=== PATIENT | male | born 1945 | race Caucasian/White ===

== ENCOUNTER 2018-06-21 13:42 | Outpatient (CLI) | payer MEDICARE, OTHER, SELFPAY ==
[2018-06-21 14:27] LABS: Abs Immature Grans 0.02 k/cumm (0.0-0.09); Absolute Basophil Count 0.02 k/cumm (0.0-0.2); Absolute Eosinophil Count 0.27 k/cumm (0.0-0.7); Absolute Lymphocyte Count 1.49 k/cumm (1.2-3.4); Absolute Monocyte Count 0.97 k/cumm (0.11-0.7); Absolute Neutrophil Count 6.21 k/cumm (1.2-6.7); Basophils % 0.2; HCT 41.2 % (40.0-50.0); HGB 13.8 g/dL (13.5-17.5); Immature Grans % 0.2; Lymphocytes % 16.6; Mean Corp. HGB Concentration 33.5 g/dL (32.0-36.0); Mean Corpuscular Hemoglobin 30.8 pg (27.0-33.0); Mean Platelet Volume 9.9 fL (8.0-11.0); Monocytes % 10.8; Neutrophils % 69.2; Platelet Count 201 x1000/uL (130-400); RBC 4.48 m/cumm (4.50-6.00); RBC Distribution Width 14.3 % (11.8-14.1); White Blood Cell Count 8.98 k/cumm (4.4-10.8)
== END 2018-06-21 14:02 ==
PROVIDERS: PCP Family Medicine; Visit Provider Family Medicine
DX: R10.9 Unspecified abdominal pain (principal)
CPT/HCPCS: 36415; 85025

== ENCOUNTER 2018-09-27 17:14 | Outpatient (CLI) | payer MEDICARE, OTHER, SELFPAY ==
--- NOTE | 2018-09-27 12:45 | DI.RAD_ITS ---
SYMPTOMS/DIAGNOSIS: PAIN, LIMITED RANGE OF MOTION, ? [facility], M25.512 LEFT SHOULDER: Multiple views. There is marked narrowing of the glenohumeral joint. Subchondral sclerosis is seen. There are osteophytes arising from the humeral head in the glenoid. Mild hypertrophic changes are seen at the acromioclavicular joint. No acute fracture or dislocation is seen. The soft tissues are unremarkable. IMPRESSION: Marked degenerative changes of the left glenohumeral joint.
== END 2018-09-27 17:34 ==
PROVIDERS: PCP Family Medicine; Visit Provider Student in an Organized Health Care Education/Training Program
DX: M25.512 Pain in left shoulder (principal); M19.012 Primary osteoarthritis, left shoulder
CPT/HCPCS: 73030

== ENCOUNTER → 2018-10-17 11:00 | Outpatient (BNVA) | payer MEDICARE, OTHER, SELFPAY | PROVIDERS: PCP Family Medicine; Referring Provider Family Medicine; Visit Provider Orthopaedic Surgery | DX: M19.012 Primary osteoarthritis, left shoulder (principal) | CPT/HCPCS: 99211; 99213 ==

== ENCOUNTER 2020-09-03 04:47 | Outpatient (CLI) | payer MEDICARE, OTHER, SELFPAY ==
[2020-09-03 09:40] LABS: ALT 25 U/L (16-63); AST 22 U/L (15-37); Albumin 3.7 g/dL (3.4-5.0); Alkaline Phosphatase 75 U/L (46-116); Anion Gap 6.5 mmol/L (3-11); BUN 28 mg/dL (7-18); Bilirubin, Total 0.8 mg/dL (0.2-1.0); CO2 31.5 mmol/L (21.0-32.0); CREATININE 1.01 mg/dL (0.70-1.30); Calculated LDL 75 mg/dL (<100); Chloride 104 mmol/L (98-107); Cholesterol 115 mg/dL (<200); Glucose 83 mg/dL (74-106); HDL Cholesterol 30 mg/dL (40-60); Potassium 4.4 mmol/L (3.5-5.1); Sodium 142 mmol/L (136-145); Total Protein 7.1 g/dL (6.4-8.2); Triglyceride 54 mg/dL (<150)
== END 2020-09-03 05:07 ==
PROVIDERS: PCP Family Medicine; Visit Provider Family Medicine
DX: Z13.220 Encounter for screening for lipoid disorders (principal); Z79.1 Long term (current) use of non-steroidal anti-inflammatories (NSAID); Z51.81 Encounter for therapeutic drug level monitoring
CPT/HCPCS: 36415; 80053; 80061

== ENCOUNTER 2020-09-23 00:58 | Outpatient (CLI) | payer MEDICARE, OTHER, SELFPAY ==
--- NOTE | 2020-09-23 06:48 | DI.US_ITS ---
EXAM: US AAA SCREENING CLINICAL HISTORY: SCREENING FOR AAA,Z13.6,H/O SMOKING, HYPERTENSION COMPARISON: US ABDOMEN ULTRASOUND (P) from 03/05/2013 FINDINGS: Abdominal Aorta: Proximal: Maximum diameter 2.8 centimeters cm Mid: Maximum diameter 2.6 centimetres cm Distal: Maximum diameter 2.3 centimeter cm Iliac's: Right: 1.8 cm Left: 1.9 cm IMPRESSION: No evidence of abdominal aortic aneurysm. However, the diameters of both common iliac arteries are sl ightly prominent. DATA REPOSITORY:
== END 2020-09-23 01:18 ==
PROVIDERS: PCP Family Medicine; Visit Provider Family Medicine
DX: Z13.6 Encounter for screening for cardiovascular disorders (principal); Z87.891 Personal history of nicotine dependence; I10 Essential (primary) hypertension
CPT/HCPCS: 76706

== ENCOUNTER 2022-04-13 23:15 | Emergency (ER) | payer MEDICARE, OTHER, SELFPAY ==
[2022-04-13 23:21] VITALS: BP 151/99; PULSE 68; RESP 26; TEMP 36.7; O2SAT 96
--- NOTE | 2022-04-13 23:30 | DI.RAD_ITS ---
Exam(s) XR PORTABLE CHEST AP EXAM: XR PORTABLE CHEST AP CLINICAL HISTORY: covid + TECHNIQUE: 2D digital imaging was performed. COMPARISON: CR CHEST 2 VIEWS PA,LAT from 03/31/2018 CR XR shoulder LT complete 2+V from 09/27/2018 FINDINGS: Leads overlie the chest. LUNGS: Hyperinflated. Emphysematous and fibrotic changes. Linear atelectasis versus scarring right lung base. No superimposed infiltrate. Stable minimal bone blunting at the costophrenic angles cons istent with scarring. HEART: Normal. Aorta tortuous. BONES: Severe degenerative changes of the shoulders. Soft tissues: Unremarkable. IMPRESSION: No acute findings. DATA REPOSITORY: RADIATION DOSE DELIVERED:
[2022-04-13 23:41] VITALS: RESP 25
[2022-04-13 23:47] LABS: Abs Immature Grans 0.02 10^3/uL (0.0-0.06); Absolute Basophil Count 0.04 10^3/uL (0.0-0.2); Absolute Eosinophil Count 0.33 10^3/uL (0.0-0.7); Absolute Lymphocyte Count 1.37 10^3/uL (1.2-3.4); Absolute Monocyte Count 0.71 10^3/uL (0.1-0.8); Absolute Neutrophil Count 3.12 10^3/uL (1.2-6.7); Basophils % 0.7; Eosinophils % 5.9; HCT 39.8 % (40.0-50.0); HGB 13.4 g/dL (13.5-17.5); Immature Grans % 0.4; Lymphocytes % 24.5; MCH 30.7 pg (27.0-33.0); MCHC 33.7 % (32.0-36.0); MCV 91 fL (80-95); MPV 9.6 fL (8.0-11.0); Monocytes % 12.7; Neutrophils % 55.8; Platelet Count 181 10^3/uL (130-400); RBC 4.36 10^6/uL (4.36-5.78); RDW 13.2 % (11.8-14.1); RDW-SD 44.6 fL; WBC 5.59 10^3/uL (4.4-10.8)
[2022-04-13] MEDS: Albuterol/Ipratropium 3 ML UPD VIAL 6 ML UPD (23:52)
[2022-04-13] MEDS: Dexamethasone 10 MG/ML VIAL IVP (23:52)
[2022-04-13 23:58] LABS: ALT 21 U/L (16-63); AST 18 U/L (15-37); Albumin 3.7 g/dL (3.4-5.0); Alkaline Phosphatase 75 U/L (46-116); Anion Gap 7.5 mmol/L (3-11); BUN 26 mg/dL (7-18); Bilirubin, Total 0.6 mg/dL (0.2-1.0); CO2 27.5 mmol/L (21.0-32.0); CREATININE 0.9 mg/dL (0.70-1.30); Calcium 9.1 mg/dL (8.5-10.1); Chloride 105 mmol/L (98-107); Glucose 94 mg/dL (74-106); Potassium 3.8 mmol/L (3.5-5.1); Sodium 140 mmol/L (136-145); Total Protein 7.5 g/dL (6.4-8.2)
--- NOTE | 2022-04-14 00:01 | W.ED.GENAD ---
Discharge Plan Disposition Patient Disposition: HOME Condition: Good Discharge Details Clinical Impression: COVID-19 Primary Care Provider: Shayne Portillo ED Provider: Carmelo Agarwal Home Meds and New Rx's Prescriptions: Continued hydrocortisone 0.25 % cream topical PRN (Reason: eczema) ppsdyeqefrd-sehatffel-hdu C-Mn 1 EACH tablet 2 ea PO DAILY Fish Oil Extra Strength 1 EACH capsule 2 ea PO DAILY cholecalciferol (vitamin D3) 2,000 UNIT tablet 2,000 unit PO DAILY garlic 1,000 MG capsule 1,000 mg PO DAILY levalbuterol tartrate [Xopenex HFA] 45 mcg/actuation HFA aerosol inhaler 2 puff Inhalation Q4H PRN Qty: 1 11RF Rx Instructions: NEEDED TO PREVENT WHEEZES/SHORTNESS OF BREATH Spiriva with HandiHaler 18 mcg capsule, w/inhalation device 1 cap Inhalation DAILY Qty: 3 3RF Rx Instructions: FOR COPD/EMPHYSEMA atorvastatin 10 mg tablet 10 mg PO DAILY Qty: 90 3RF ipratropium-albuterol 0.5 mg-3 mg(2.5 mg base)/3 mL solution for nebulization See Rx Instructions .ROUTE .COMPLEX Qty: 180 3RF Dose Instruction: INHALE THE CONTENTS OF ONE VIAL VIA NEBULIZER EVERY 6 HOURS NEEDED FOR FOR SHORTNESS OF BREATH OR WHEEZING Rx Instructions: INHALE THE CONTENTS OF ONE VIAL VIA NEBULIZER EVERY 6 HOURS NEEDED FOR FOR SHORTNESS OF BREATH OR WHEEZING etodolac 500 mg tablet 500 mg PO BID Qty: 180 3RF Rx Instructions: as needed for arthritis magnesium 500 mg Tablet PO Held tamsulosin 0.4 mg capsule 0.4 mg PO DAILY Qty: 90 3RF Hold Instructions: Resume on 04/20/22. Rx Instructions: for nocturia Discharge Instructions Instructions: COVID-19 (Coronavirus Disease 2019) (ED) Additional Instructions: You have COVID-19. You have been given a medication called Paxlovid. Please take this as directed on the packet. While you are taking the medication please do not take any of your tamsulosin/Flomax as this can interact with the medication and cause your blood pressure to go low. Please continue to take your inhalers at home. Monitor your symptoms closely. If you become more short of breath, if your oxygen levels get below 90%, or if you have any worsening of your symptoms please return immediately for reassessment. If you notice any worsening of your symptoms, or any new symptoms such as vomiting, diarrhea, fever, chills, shortness of breath, chest pain, numbness, weakness, or fainting , please return immediately to the emergency department for reevaluation. Please follow up with your primary care provider as soon as possible for reassessment and reevaluation. As always, it was a pleasure participating in your medical care today. Referrals: Shayne Portillo DO [Primary Care Provider] - Medical Decision Making This is a very pleasant 76-year-old male with a past medical history of arthritis, psoriasis, COPD, high cholesterol, BPH, who presents today for runny nose, congestion and a positive COVID test. Patient is vaccinated, boosted and was most recently boosted in February. He denies any fever or chills. He denies any fatigue. He states that about 24 hours ago he developed a mild runny nose and congestion, he had a home COVID test, and he tested positive. He presents today for evaluation of this and tach Flovent administration. He states he does use his breathing treatments regularly and feels like he can climb a mountain once he is done these. He denies any new cough, shortness of breath, chest pain, or other complaint. He denies any vomiting or diarrhea. No other modifying factors. Physical exam demonstrates a 3 well-appearing 76-year-old male, no respiratory distress, hypoxemia, or difficulty breathing. Minimal runny nose. Minimal wheeze on exam. Patient otherwise appears notably stable. No indication for inpatient admission at this time. With his mild wheeze and his history of COPD I do feel that a dose of Decadron, 10 mg in addition to 2 breathing treatments is appropriate at this time. He has appropriate breathing treatments at home otherwise. Patient is a candidate for antiviral therapy. He does take tamsulosin, but this is not an absolute contraindication. We will hold his tamsulosin moving forward. We will give him a very small fluid bolus to prevent any potential transient hypotension from his tamsulosin which he took 6 hours previous. We will administer Paxil over here. Renal function is normal, hepatic function is normal. Patient is an appropriate candidate for Paxlovid therapy at this time based on his age, risk factors, and medication list that he is provided for. Patient will be discharged home with the blister pack for paxlovid. 2:22 AM Laboratory work-up has returned and is notably unremarkable, COVID test is positive. Oxygenation remained stable, vital signs notably stable. Patient feels well and feels comfortable going home. Diagnosis COVID-19. Discussed risks and benefits of monoclonal antibody therapy versus antiviral therapy, and at this point patient has elected to proceed with antiviral therapy. He has been given his first dose of Taxotere, and will be given the posterior pack for home use. With no signs of respiratory distress, hypoxemia, or other significant abnormality patient is stable for discharge. Discussed red flags which to return. I have extensively reviewed the treatment plan and discharge instructions with the patient. I have addressed all patient concerns at this time. The patient was made aware of what symptoms to monitor for that would warrant a return to the emergency department. Discussed the plan with the patient, they demonstrate verbal understanding and agreement with our assessment and plan at this time. The documentation in this chart was dictated using [employer] dictation software. Please excuse any dictation errors. FINDINGS: Lungs: Lungs are adequately inflated and symmetric. There is coarsening of the perihilar and bibasilar interstitial markings similar to prior with unchanged thin linear opacities in the right lung base consistent with chronic subsegmental atelectasis and/or scarring. There is no focal/lobar consolidation. Pleural spaces: Unchanged blunting of left costophrenic angle favored to represent changes of atelectasis and/or scarring, could obscure trace/small left pleural effusion. No visible right pleural effusion. No pneumothorax. Heart/Mediastinum: Cardiomediastinal contours within normal limits. Vasculature: Descending thoracic aorta is tortuous in course. Bones/joints: Mild multilevel thoracic spondylosis. No acute osseous finding. IMPRESSION: No focal/lobar consolidation. Thank you for allowing us to participate in the care of your patient. Dictated and Authenticated by: Jean-Claude Doan MD [facility] General Date/Time Provider Initiated Documentation: 04/13/22 23:22. HPI Narrative: This is a very pleasant 76-year-old male with a past medical history of arthritis, psoriasis, COPD, high cholesterol, BPH, who presents today for runny nose, congestion and a positive COVID test. Patient is vaccinated, boosted and was most recently boosted in February. He denies any fever or chills. He denies any fatigue. He states that about 24 hours ago he developed a mild runny nose and congestion, he had a home COVID test, and he tested positive. He presents today for evaluation of this and tach Flovent administration. He states he does use his breathing treatments regularly and feels like he can climb a mountain once he is done these. He denies any new cough, shortness of breath, chest pain, or other complaint. He denies any vomiting or diarrhea. No other modifying factors. Related Data Home Medications Medication Instructions Recorded Confirmed cholecalciferol (vitamin D3) 50 2,000 unit PO DAILY 01/09/13 04/13/22 mcg (2,000 unit) tablet rydtihcrdmw-pazspwjep-ylu C-Mn 750 2 ea PO DAILY 01/09/13 04/13/22 mg-600 mg-55 mg-5 mg tablet omega-3 fatty acids-fish oil 435 2 ea PO DAILY 01/09/13 04/13/22 mg-880 mg capsule (Fish Oil Extra Strength) garlic 1,000 mg capsule 1,000 mg PO DAILY 12/01/14 04/13/22 hydrocortisone 0.25 % topical cream applic topical PRN eczema 02/25/21 10/07/21 levalbuterol tartrate 45 2 puff inhalation Q4H PRN ##1 07/07/21 04/13/22 mcg/actuation aerosol inhaler (Xopenex HFA) atorvastatin 10 mg tablet 10 mg PO DAILY #90 tabs 07/11/21 04/13/22 tiotropium bromide 18 mcg capsule 1 cap inhalation DAILY #3 tab-caps 07/11/21 04/13/22 with inhalation device (Spiriva with HandiHaler) ipratropium 0.5 mg-albuterol 3 mg See Rx Instructions .Route 12/15/21 04/13/22 (2.5 mg base)/3 mL nebulization .COMPLEX #180 mL soln etodolac 500 mg tablet 500 mg PO BID #180 tabs 12/29/21 04/13/22 tamsulosin 0.4 mg capsule 0.4 mg PO DAILY #90 tab-caps 03/09/22 04/13/22 magnesium 500 mg tablet mg PO 04/13/22 Previous Rx's Medication Instructions Recorded levalbuterol tartrate 45 2 puff inhalation Q4H PRN ##1 07/07/21 mcg/actuation aerosol inhaler (Xopenex HFA) atorvastatin 10 mg tablet 10 mg PO DAILY #90 tabs 07/11/21 tiotropium bromide 18 mcg capsule 1 cap inhalation DAILY #3 tab-caps 07/11/21 with inhalation device (Spiriva with HandiHaler) ipratropium 0.5 mg-albuterol 3 mg See Rx Instructions .Route 12/15/21 (2.5 mg base)/3 mL nebulization .COMPLEX #180 mL soln etodolac 500 mg tablet 500 mg PO BID #180 tabs 12/29/21 tamsulosin 0.4 mg capsule 0.4 mg PO DAILY #90 tab-caps 03/09/22 Allergies Allergy/AdvReac Type Severity Reaction Status Date / Time Latex, Natural Rubber AdvReac Intermediate Skin Rash Verified 04/13/22 23:30 walnuts Allergy Intermediate watery Uncoded 04/13/22 23:30 eyes and some swelling in mouth Fruits that have been sprayed Allergy Unknown eyes will Uncoded 04/13/22 23:30 swell if he eats them General Stated Complaint: SOB AVA: 3 Review of Systems All systems reviewed & are unremarkable except as noted in HPI and below PFSH All Active Problems (Updated 04/14/22 @ 00:13 by Carmelo Agarwal DO) COVID-19 (Acute) Bilateral shoulder region arthritis (Acute) Psoriasis and similar disorder (Acute) Compound nevus of back (Acute) Degenerative joint disease, shoulder, left (Acute) Pat I think he will eventually need a total shoulder replacement. I explained to him that this is not a procedure that I do and I would recommend Dr. Choi at [facility] if he decides to have the surgery I also explained to him that use of injections specifically Depo-Medrol can be very helpful and can last for many months. I also explained that Visco supplementation has not been effective in the shoulder. He has a characteristic area of osteophyte formation inferomedially. This often has the appearance of wax dripping from the edge of a candle. He has no joint space on the AP and axillary views. There is no narrowing between the superior portion of the humeral head and the acromion to suggest rotator cuff tear arthropathy. For now he is content to continue with his exercise he will contact the office if he wants to try injection of corticosteroid into his left shoulder perhaps his right if that becomes more symptomatic Osteopenia (Chronic 02/01/17) left hip T score (-0.9) 02/01/17; rx wt bearing exercise, adequate calcium, vit D Osteoarthritis (Chronic 06/28/15) gary both hands, 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 and T score Normal for LS spine (+2.1) Elevated prostate specific antigen (PSA) (Chronic 07/19/12) Chronic airway obstruction (Chronic 08/01/12) h/o pipe smoker; FEV1 2.28 (79%pred, 59%FVC 07/2012) incr RV, nl DLCO; d/c smoking 2011; GOLD 2 Moderate. FEV1 2.2 (2017, stable) Surgical History Prostate Biopsy (10/17/11) [address] Johnston, [facility] 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 MORROW Family History Mother , breast ca at age 43. Personal history of malignant neoplasm of Breast CA st 43 Father , suicide at age 49. Suicide depression, suicide at 49 Sister , Lung Cancer at age 73. No problems noted. Sister No problems noted. Brother , Kidney failure at age 64. No problems noted. Brother Age: 73 Diabetes Social History Smoking/Tobacco Use Status: Former Tobacco Use tobacco type: pipe Quit Date: 11/07/19 Smoking risk assessment performed?: Yes Alcohol Intake: never Drug use: Never Substance use type: does not use Household members: none Education Level: college Duration: 15-30 minutes/day Frequency: 3-4 times per week Seatbelt use: always Do you feel safe at home: Yes Do you feel safe in your relationship?: Yes Exam Narrative Exam Narrative: 1.Const: Well-nourished, Well-developed, appearing stated age 2.Eyes: PERRL, no conjunctival injection, and symmetrical lids. 3.ENT: Atraumatic external nose and ears. Moist MM. Neck: Symmetric, trachea midline, No thyromegaly. 4.CVS: +S1/S2, No murmurs or gallops. Peripheral pulses 2+ and equal in all extremities. Brisk capillary refill in all extremities. 5.RESP: Unlabored respiratory effort. Minimal wheeze throughout, no rhonchi or rales. 6.GI: Soft, Nontender/Nondistended, No hepatosplenomegaly. No guarding or rebound. 7.MSK: Normocephalic/Atraumatic, Extremities w/o deformity or ttp No cyanosis or clubbing, Normal movement of all extremities 8.Skin: Warm, Dry. No rashes or lesions. 9.Neuro: biometrics instructor II-XII grossly intact. Sensation grossly intact, no focal neurologic deficits. 10.Psych: (AAO) x3. Appropriate mood and affect Course Vital Signs Vital signs: Vital Signs Temperature 36.7 C 04/13/22 23:21 Pulse 68 04/13/22 23:21 Respiratory Rate 26 H 04/13/22 23:21 Blood Pressure 151/99 H 04/13/22 23:21 Pulse Oximetry 96 04/13/22 23:21 Temperature 36.7 C 04/13/22 23:21 Temperature Source Temporal Artery Scan 04/13/22 23:21 Pulse 68 04/13/22 23:21 Respiratory Rate 25 H 04/13/22 23:41 Respiratory Effort 04/13/22 23:41 Respiratory Depth Normal 04/13/22 23:41 Respiratory Pattern Normal 04/13/22 23:41 Blood Pressure 151/99 H 04/13/22 23:21 Blood Pressure Position Supine 04/13/22 23:21 Pulse Oximetry 96 04/13/22 23:21 Oxygen Delivery Method Room Air 04/13/22 23:21 Oxygen Flow Rate 0 04/13/22 23:21 Pain Level 0 04/13/22 23:21 Lab/Test Results Lab/Test Results: Laboratory Tests Range/Units 04/13/22 04/13/22 23:35 23:35 WBC (4.4-10.8) 10^3/uL 5.59 RBC (4.36-5.78) 10^6/uL 4.36 Hgb (13.5-17.5) g/dL 13.4 L Hct (40.0-50.0) % 39.8 L MCV (80-95) fL 91 MCH (27.0-33.0) pg 30.7 MCHC (32.0-36.0) % 33.7 RDW (11.8-14.1) % 13.2 Plt Count (130-400) 10^3/uL 181 MPV (8.0-11.0) fL 9.6 Immature Gran % 0.4 Neutrophils % 55.8 Lymphocytes % 24.5 Monocytes % 12.7 Eosinophils % 5.9 Basophils % 0.7 Nucleated RBC % (0.0-0.3) % 0.0 Absolute Neutrophils (1.2-6.7) 10^3/uL 3.12 Absolute Lymphocytes (1.2-3.4) 10^3/uL 1.37 Absolute Monocytes (0.1-0.8) 10^3/uL 0.71 Absolute Eosinophils (0.0-0.7) 10^3/uL 0.33 Absolute Basophils (0.0-0.2) 10^3/uL 0.04 Sodium (136-145) mmol/L 140 Potassium (3.5-5.1) mmol/L 3.8 Chloride (98-107) mmol/L 105 Carbon Dioxide (21.0-32.0) mmol/L 27.5 Anion Gap (3-11) mmol/L 7.5 BUN (7-18) mg/dL 26 H Creatinine (0.70-1.30) mg/dL 0.9 Estimated GFR/1.73 m2 (mL/min/1.73m2) >= 60.00 Glucose (74-106) mg/dL 94 Calcium (8.5-10.1) mg/dL 9.1 Total Bilirubin (0.2-1.0) mg/dL 0.6 AST (15-37) U/L 18 ALT (16-63) U/L 21 Alkaline Phosphatase (46-116) U/L 75 Total Protein (6.4-8.2) g/dL 7.5 Albumin (3.4-5.0) g/dL 3.7
[2022-04-14] MEDS: Normal Saline 500 ML IV (00:16)
[2022-04-14 00:30] LABS: Influenza A PCR Negative (Negative); Influenza B PCR Negative (Negative); RSV PCR Negative (Negative)
[2022-04-14 00:31] LABS: Source Nasopharynx
[2022-04-14 00:33] LABS: COVID-19 PCR Positive (Negative)
[2022-04-14 00:41] VITALS: BP 144/80; PULSE 98; RESP 23; O2SAT 94
[2022-04-14 01:39] VITALS: BP 136/90; PULSE 112; RESP 24; O2SAT 93
[2022-04-14 02:17] VITALS: BP 135/86; PULSE 107; RESP 22; O2SAT 93
--- NOTE | 2022-04-14 02:26 | DI.VRAD_ITS ---
PROCEDURE INFORMATION: Exam: XR Chest Exam date and time: 04/14/2022 12:26 AM Age: 76 years old Clinical indication: Dyspnea; Patient HX: Covid +; Additional info: SOB TECHNIQUE: Imaging protocol: Radiologic exam of the chest. Views: 1 view. COMPARISON: CR CHEST 2 VIEWS PA,LAT 03/31/2018 11:41 AM FINDINGS: Lungs: Lungs are adequately inflated and symmetric. There is coarsening of the perihilar and bibasilar interstitial markings similar to prior with unchanged thin linear opacities in the right lung base consistent with chronic subsegmental atelectasis and/or scarring. There is no focal/lobar consolidation. Pleural spaces: Unchanged blunting of left costophrenic angle favored to represent changes of atelectasis and/or scarring, could obscure trace/small left pleural effusion. No visible right pleural effusion. No pneumothorax. Heart/Mediastinum: Cardiomediastinal contours within normal limits. Vasculature: Descending thoracic aorta is tortuous in course. Bones/joints: Mild multilevel thoracic spondylosis. No acute osseous finding. IMPRESSION: No focal/lobar consolidation. Dictated and Authenticated by: Jean-Claude Doan MD. Ordering:SENIA Rhodes MD
== END 2022-04-14 02:38 | disposition home or self-care (01) ==
PROVIDERS: Emergency Provider Student in an Organized Health Care Education/Training Program; PCP Family Medicine
DX: U07.1 COVID-19 (principal); J44.9 Chronic obstructive pulmonary disease, unspecified; Z87.891 Personal history of nicotine dependence
CPT/HCPCS: 80053; 87637; 96361; 96374; 99284; 71045; 85025; J1100; J7620

== ENCOUNTER 2022-08-15 14:18 | Outpatient (CLI) | payer MEDICARE, OTHER, SELFPAY ==
--- NOTE | 2022-08-15 14:15 | DI.RAD_ITS ---
Exam(s) XR SHOULDER RT COMPLETE 2+V EXAM: XR SHOULDER RT COMPLETE 2+V CLINICAL HISTORY: right shoulder f/u. TECHNIQUE: 2D digital imaging was performed of the right shoulder. Two images were obtained. AP an d axillary views were obtained. COMPARISON: No exams were available for comparison FINDINGS: BONES: No acute fracture is present. No bony destructive lesion is seen. JOINTS: No dislocation present. There are marked degenerative changes of the glenohumeral joint with loss of the joint space, subchondral sclerosis and periarticular spurring. There are mild degenerati ve changes seen at the acromioclavicular joint. SOFT TISSUE: Normal. IMPRESSION: Marked osteoarthritis of the right glenohumeral joint. DATA REPOSITORY: RADIATION DOSE DELIVERED:
--- NOTE | 2022-08-15 14:15 | DI.RAD_ITS ---
Exam(s) XR SHOULDER LT COMPLETE 2+V EXAM: XR SHOULDER LT COMPLETE 2+V CLINICAL HISTORY: left shoulder f/u. TECHNIQUE: 2D digital imaging was performed of the left shoulder. Two images were obtained. AP and axillary views were obtained. COMPARISON: CR XR shoulder LT complete 2+V from 09/27/2018 CR,XR XR PORTABLE CHEST AP from 04/14/2022 FINDINGS: BONES: No acute fracture is present. No bony destructive lesion is seen. JOINTS: No dislocation present. There are marked degenerative changes seen at the glenohumeral joint with loss of the joint space, subchondral cysts, subchondral sclerosis and periarticular spurring. M ild hypertrophic changes are seen at the acromioclavicular joint. SOFT TISSUE: Normal. IMPRESSION: Marked osteoarthritis of the glenohumeral joint. DATA REPOSITORY: RADIATION DOSE DELIVERED:
== END 2022-08-15 14:19 | disposition home or self-care (01) ==
LOC: DIORS 14:19
PROVIDERS: PCP Family Medicine; Referring Provider Family Medicine; Visit Provider Student in an Organized Health Care Education/Training Program
DX: M19.011 Primary osteoarthritis, right shoulder (principal); M19.012 Primary osteoarthritis, left shoulder
CPT/HCPCS: 20610; 99214; 73030; J1030

== ENCOUNTER 2022-10-18 11:22 | Outpatient (CLI) | payer MEDICARE, SELFPAY | END 2022-10-18 11:23 | disposition home or self-care (01) | LOC: DIORS 10-19 11:27 | PROVIDERS: PCP Family Medicine; Referring Provider Family Medicine; Visit Provider Student in an Organized Health Care Education/Training Program | DX: M19.011 Primary osteoarthritis, right shoulder (principal) | CPT/HCPCS: 99213 ==

== ENCOUNTER 2022-10-25 01:43 | Outpatient (CLI) | payer MEDICARE, SELFPAY ==
--- NOTE | 2022-10-25 06:45 | DI.CT_ITS ---
Exam(s) CT UPPER EXTREMITY RT WO EXAM: CT UPPER EXTREMITY RT WO CLINICAL HISTORY: Surgery planning,arthritis rt glenohumeral joint,m19.011 TECHNIQUE: Imaging Protocol: Axial computed tomography images with coronal and sagittal reformatted images were created and reviewed. CONTRAST MATERIAL: None COMPARISON: CR XR SHOULDER RT COMPLETE 2+V from 08/15/2022 FINDINGS: Severe degenerative changes of the glenohumeral joint. Periarticular spurring and subchondral cyst f ormation. Joint effusion present. Few tiny calcifications in the inferior joint. Fluid in the subc oracoid bursa. No significant muscle atrophy. Mild degenerative changes AC joint Lungs show mild emphysematous and fibrotic changes. IMPRESSION: Severe degenerative changes of the glenohumeral joint. RADIATION DOSE DELIVERED: 683.04mGy.cm Total DLP DATA REPOSITORY: All CT scans at this facility are submitted to the National Radiology Data Registry (NRDR) Dose Index Registry (DIR) with the [employer] (ACR). RADIATION OPTIMIZATION: All CT scans at this facility use at least one of these dose optimization te chniques: automated exposure control; mA and/or kV adjustment per patient size (includes targeted exa ms where dose is matched to clinical indication); or iterative reconstruction.
--- NOTE | 2022-10-25 06:45 | DI.RAD_ITS ---
Exam(s) XR CHEST 2V PA LATERAL EXAM: XR CHEST 2V PA LATERAL CLINICAL HISTORY: PREOPERATIVE EVALUATION,chronic airway obstruction,arthritis rt shoulder, TECHNIQUE: 2D digital imaging was performed. COMPARISON: 14 April 2022 FINDINGS: HEART: Normal size. Aorta: Not dilated. Tortuous. PULMONARY VASCULATURE: Normal. LUNGS: Emphysematous and fibrotic changes, otherwise clear. PLEURAL SPACE: No pleural effusion or pneumothorax. BONE:Degenerative changes in the spine. IMPRESSION: Emphysematous and fibrotic changes. No acute abnormality. DATA REPOSITORY: RADIATION DOSE DELIVERED:
== END 2022-10-25 02:03 ==
PROVIDERS: PCP Family Medicine; Visit Provider Student in an Organized Health Care Education/Training Program
DX: M19.011 Primary osteoarthritis, right shoulder (principal); J44.9 Chronic obstructive pulmonary disease, unspecified; J98.4 Other disorders of lung
CPT/HCPCS: 71046; 73200

== ENCOUNTER 2022-11-17 10:21 | Outpatient (CLI) | payer MEDICARE, SELFPAY ==
--- NOTE | 2022-11-17 10:15 | RT.EKG_ITS ---
APPROVED REPORT Exam: Resting ECG Reason for Exam: Pre-op Patient Location: O HR:144 bpm ECG Measurements Heart Rate 144 AXIS VT [id number] P [id number] QRSd 153 QRS 131 QT 335 T 50 QTc 519 Conclusion Extreme tachycardia with wide complex, no further rhythm analysis attempted Probable atrial flutter IVCD
== END 2022-11-17 10:22 | disposition home or self-care (01) ==
LOC: DI.KIM 10:22
PROVIDERS: PCP Family Medicine; Visit Provider Family Medicine
DX: R00.0 Tachycardia, unspecified (principal); R06.02 Shortness of breath; R94.31 Abnormal electrocardiogram [ECG] [EKG]
CPT/HCPCS: 93010

== ENCOUNTER 2022-11-17 11:01 | Inpatient (IN) | payer MEDICARE, SELFPAY ==
[2022-11-17] VITALS (144 sets, daily range): BP systolic 96–165; BP diastolic 64–138; PULSE 48–149; RESP 10–43; TEMP 36.6–36.9; O2SAT 88–99
--- NOTE | 2022-11-17 11:00 | RT.EKG_ITS ---
APPROVED REPORT Exam: Resting ECG Reason for Exam: tachycardia Patient Location: E HR:145 bpm ECG Measurements Heart Rate 145 AXIS KS 69 P 0 QRSd 152 QRS 224 QT 341 T 50 QTc 531 Conclusion Extreme tachycardia with wide complex, no further rhythm analysis attempted Physician: RBBB w/ increased rate, no stemi, otherwise unchanged from prior ekg
--- NOTE | 2022-11-17 11:12 | DI.CT_ITS ---
Exam(s) CT CHEST PE ABD PELVIS W EXAM: CT CHEST PE ABD PELVIS W CLINICAL HISTORY: sob,[id number], total bili 1.6. TECHNIQUE: Imaging Protocol: Axial computed tomography images with coronal and sagittal reformatted images were created and reviewed CONTRAST MATERIAL: Intravenous: Omnipaque 350 Contrast volume:100 ml Oral: no COMPARISON: CR XR CHEST 2V PA LATERAL from 10/25/2022 FINDINGS: CHEST: Pulmonary arteries: Well opacified. No evidence of emboli. Pulmonary arteries prominent Tracheobronchial tree: Patent where visualized. Pulmonary parenchyma: Basilar atelectasis and/or scarring. Interstitial changes at the lung bases. Mild emphysematous changes present. No consolidation or dominant measurable mass. Pleura: No effusion or pneumothorax. Lymph nodes: Within normal limits. Aorta: Thoracic portion non-dilated. Mild atherosclerotic changes. Heart: Enlarged. Coronary artery calcifications noted. No pericardial effusion. Bones: Unremarkable for age. No lytic or blastic lesions.No compression fractures. ABDOMEN: Liver: Normal density. No measurable mass. Gallbladder and biliary tract: No radiodense calculus or dilation. Pancreas: Normal density, no abnormal calcifications or inflammatory process. Spleen: Normal. Kidneys: Normal size, contour and axis. No radiodense stones or obstructive uropathy. No suspicious m asses seen. Adrenal glands: No masses seen. Aorta: Abdominal portion non-dilated. Atherosclerotic changes. Mildly dilated dilated tortuous common iliac arteries Lymph nodes: Within normal limits. Soft tissues: Small fatty containing inguinal hernias. Small amount of fat at the umbilicus. PELVIS: Bladder: Distended., mild wall thickening. Bowel: Diverticulosis. No evidence of diverticulitis. No obstruction or bowel wall thickening. Peritoneal cavity: No ascites, collection or mesenteric inflammatory response. Bones: Severe degenerative changes in the spine. Reproductive organs: Prostate E markedly enlarged. IMPRESSION: No acute abnormality in the chest, abdomen or pelvis.. Enlarged prostate causing bladder outlet obstruction. Findings communicated with Milan Pete, emergency department provider. RADIATION DOSE DELIVERED: 1,125.21mGy.cm Total DLP DATA REPOSITORY: All CT scans at this facility are submitted to the National Radiology Data Registry (NRDR) Dose Index Registry (DIR) with the [employer] (ACR). RADIATION OPTIMIZATION: All CT scans at this facility use at least one of these dose optimization te chniques: automated exposure control; mA and/or kV adjustment per patient size (includes targeted exa ms where dose is matched to clinical indication); or iterative reconstruction.
[2022-11-17] MEDS: methylPREDNISolone SUCC 125 MG VIAL IVP (11:23)
[2022-11-17] MEDS: Levalbuterol 1.25 MG/3 ML UPD VIAL UPD (11:23)
--- NOTE | 2022-11-17 11:24 | ED.GENADUL_ITS ---
Discharge Plan Disposition Patient Disposition: Admit to [facility] Discharge Details Chief Complaint: RespSymp Clinical Impression: Tachycardia, Elevated brain natriuretic peptide (BNP) level, Shortness of breath Primary Care Provider: Shayne Portillo ED Provider: Milan Pete Home Meds and New Rx's Prescriptions: No Action [id number]-[id number] C-Mn 1 EACH tablet 2 ea PO DAILY Fish Oil Extra Strength 1 EACH capsule 2 ea PO DAILY cholecalciferol (vitamin D3) 2,000 UNIT tablet 2,000 unit PO DAILY garlic 1,000 MG capsule 1,000 mg PO DAILY tamsulosin 0.4 mg capsule 0.4 mg PO DAILY Qty: 90 3RF Hold Instructions: Resume on 04/20/22. Rx Instructions: for nocturia etodolac 500 mg tablet 500 mg PO BID Qty: 180 3RF Rx Instructions: as needed for arthritis atorvastatin 10 mg tablet 10 mg PO DAILY Qty: 90 3RF Spiriva with HandiHaler 18 mcg capsule, w/inhalation device 1 cap Inhalation DAILY Qty: 3 3RF Rx Instructions: FOR COPD/EMPHYSEMA hydrocortisone 2.5 % cream 1 applic topical BID PRN (Reason: skin irritation) Qty: 30 0RF levalbuterol tartrate [Xopenex HFA] 45 mcg/actuation HFA aerosol inhaler 2 puff Inhalation Q4H PRN Qty: 1 11RF Rx Instructions: NEEDED TO PREVENT WHEEZES/SHORTNESS OF BREATH ipratropium-albuterol 0.5 mg-3 mg(2.5 mg base)/3 mL solution for nebulization See Rx Instructions .ROUTE .COMPLEX Qty: 180 3RF Dose Instruction: INHALE THE CONTENTS OF ONE VIAL VIA NEBULIZER EVERY 6 HOURS NEEDED FOR FOR SHORTNESS OF BREATH OR WHEEZING Rx Instructions: INHALE THE CONTENTS OF ONE VIAL VIA NEBULIZER EVERY 6 HOURS NEEDED FOR FOR SHORTNESS OF BREATH OR WHEEZING magnesium 500 mg Tablet 500 mg PO DAILY Medical Decision Making 77-year-old gentleman, former smoker, history of COPD, hyperlipidemia, presented to his PCP today for a preop of a right shoulder surgery scheduled next week, was found to be short of breath, dry cough, wheezing, tachycardia, sent to the ER for further evaluation. Patient tells me that he has had a dry cough, wheezing, shortness of breath for the past 3-4 weeks. He reports chest tightness when coughing but denies any other chest pain. He denies recent illness or trauma. He denies feeling as though his heart rate is rapid. Patient presents with blood pressure of 165/105, pulse in the 140s. EKG appears to reveal sinus tachycardia. Plan to initiate a cardiac work-up, give IV labetalol, mucous membranes are slightly dry, IV fluid, and provide IV Solu- Medrol and Xopenex for his wheezing given his tachycardia IV labetalol provided. Heart rate initially decreased to the low 100s. Repeat EKG reveals what appears to be a flutter, ventricular rate of 113, right bundle branch block. Quickly returned up to the 130s and appeared to be sinus tachycardia on the monitor. Laboratory values reveal a D-dimer of 2142, total bili 1.6, BNP of 2240. Plan to obtain CTA of the chest to rule out PE but will also extend the CT to abdomen and pelvis given his consistent tachycardia and elevated total bili although no abdominal pain nausea or vomiting. Flu, RSV, COVID-negative. CT imaging unremarkable. Heart rate remains in the high 130s. Upon reevaluation lungs are less wheezy, he seems to be moving more air and subjectively reports feeling improvement, heart rate is still in the high 130s. Given his persistent tachycardia, BNP of over 2000 which appears new, will discu ss the case with our hospitalist team for admission, likely requires echocardiogram, and will discuss additional pharmacological therapy. Case discussed with Dr. Aranda who is agreeable to admit the patient. He recommends an additional 10 IV labetalol. He will write admission orders. Heart rate down into the high 110s-120s but soon after went back into the 130s. This documentation was generated using [employer] system, please disregard any oddities of phrase or misspellings. Medical Records Medical records reviewed: Yes I reviewed the patient's medical records. Imaging Data Radiologic Study: Attestation: I personally reviewed and interpreted this imaging study as follows: Imaging: CT Scan Radiologist's impression: Exam(s) CT CHEST PE ABD PELVIS W EXAM: CT CHEST PE ABD PELVIS W CLINICAL HISTORY: sob,[id number], total bili 1.6. TECHNIQUE: Imaging Protocol: Axial computed tomography images with coronal and sagittal reformatted images were created and reviewed CONTRAST MATERIAL: Intravenous: Omnipaque 350 Contrast volume:100 ml Oral: no COMPARISON: CR XR CHEST 2V PA LATERAL from 10/25/2022 FINDINGS: CHEST: Pulmonary arteries: Well opacified. No evidence of emboli. Pulmonary arteries prominent Tracheobronchial tree: Patent where visualized. Pulmonary parenchyma: Basilar atelectasis and/or scarring. Interstitial changes at the lung bases. Mild emphysematous changes present. No consolidation or dominant measurable mass. Pleura: No effusion or pneumothorax. Lymph nodes: Within normal limits. Aorta: Thoracic portion non-dilated. Mild atherosclerotic changes. Heart: Enlarged. Coronary artery calcifications noted. No pericardial effusion. Bones: Unremarkable for age. No lytic or blastic lesions.No compression fractures. ABDOMEN: Liver: Normal density. No measurable mass. Gallbladder and biliary tract: No radiodense calculus or dilation. Pancreas: Normal density, no abnormal calcifications or inflammatory process. Spleen: Normal. Kidneys: Normal size, contour and axis. No radiodense stones or obstructive uropathy. No suspicious masses seen. Adrenal glands: No masses seen. Aorta: Abdominal portion non-dilated. Atherosclerotic changes. Mildly dilated dilated tortuous common iliac arteries Lymph nodes: Within normal limits. Soft tissues: Small fatty containing inguinal hernias. Small amount of fat at the umbilicus. PELVIS: Bladder: Distended., mild wall thickening. Bowel: Diverticulosis. No evidence of diverticulitis. No obstruction or bowel wall thickening. Peritoneal cavity: No ascites, collection or mesenteric inflammatory response. Bones: Severe degenerative changes in the spine. Reproductive organs: Prostate E markedly enlarged. IMPRESSION: No acute abnormality in the chest, abdomen or pelvis.. Enlarged prostate causing bladder outlet obstruction. Findings communicated with Milan Pete, emergency department provider. Lab Data Lab results reviewed: Yes I reviewed the patient's lab results. Labs: Laboratory Tests Range/Units 11/17/22 11/17/22 11/17/22 11:15 11:15 11:15 WBC (4.4-10.8) 10^3/uL RBC (4.36-5.78) 10^6/uL Hgb (13.5-17.5) g/dL Hct (40.0-50.0) % MCV (80-95) fL MCH (27.0-33.0) pg MCHC (32.0-36.0) % RDW (11.8-14.1) % Plt Count (130-400) 10^3/uL MPV (8.0-11.0) fL Immature Gran % Neutrophils % Lymphocytes % Monocytes % Eosinophils % Basophils % Nucleated RBC % (0.0-0.3) % Absolute Neutrophils (1.2-6.7) 10^3/uL Absolute Lymphocytes (1.2-3.4) 10^3/uL Absolute Monocytes (0.1-0.8) 10^3/uL Absolute Eosinophils (0.0-0.7) 10^3/uL Absolute Basophils (0.0-0.2) 10^3/uL PT (9.3-11.0) sec 11.4 H INR (0.9-1.1) 1.1 APTT (21.5-31.9) sec 28.6 D-Dimer (<500) ng/mlFEU 2142 H Sodium (136-145) mmol/L 139 Potassium (3.5-5.1) mmol/L 4.4 Chloride (98-107) mmol/L 104 Carbon Dioxide (21.0-32.0) mmol/L 28.7 Anion Gap (3-11) mmol/L 6.3 BUN (7-18) mg/dL 25 H Creatinine (0.70-1.30) mg/dL 0.9 Est GFR (CKD-EPI 2020) (mL/min/1.73m2) 87.96 Glucose (74-106) mg/dL 123 H Calcium (8.5-10.1) mg/dL 9.2 Magnesium (1.8-2.4) mg/dL 2.2 Total Bilirubin (0.2-1.0) mg/dL 1.6 H AST (15-37) U/L 21 ALT (16-63) U/L 34 Alkaline Phosphatase (46-116) U/L 74 Troponin I (<or=60) ng/L < 50 NT-Pro-B Natriuret Pep Cancelled 2240 H Total Protein (6.4-8.2) g/dL 7.3 Albumin (3.4-5.0) g/dL 3.9 TSH Cancelled 1.68 COVID-19 Source SARS-CoV-2 (PCR) (Negative) Influenza Type A (PCR) (Negative) Influenza Type B (PCR) (Negative) RSV (PCR) (Negative) Range/Units 11/17/22 11/17/22 11:15 11:20 WBC (4.4-10.8) 10^3/uL 8.06 RBC (4.36-5.78) 10^6/uL 4.41 Hgb (13.5-17.5) g/dL 13.3 L Hct (40.0-50.0) % 40.9 MCV (80-95) fL 93 MCH (27.0-33.0) pg 30.2 MCHC (32.0-36.0) % 32.5 RDW (11.8-14.1) % 14.0 Plt Count (130-400) 10^3/uL 187 MPV (8.0-11.0) fL 9.5 Immature Gran % 0.2 Neutrophils % 75.8 Lymphocytes % 11.7 Monocytes % 10.7 Eosinophils % 1.2 Basophils % 0.4 Nucleated RBC % (0.0-0.3) % 0.0 Absolute Neutrophils (1.2-6.7) 10^3/uL 6.11 Absolute Lymphocytes (1.2-3.4) 10^3/uL 0.94 L Absolute Monocytes (0.1-0.8) 10^3/uL 0.86 H Absolute Eosinophils (0.0-0.7) 10^3/uL 0.10 Absolute Basophils (0.0-0.2) 10^3/uL 0.03 PT (9.3-11.0) sec INR (0.9-1.1) APTT (21.5-31.9) sec D-Dimer (<500) ng/mlFEU Sodium (136-145) mmol/L Potassium (3.5-5.1) mmol/L Chloride (98-107) mmol/L Carbon Dioxide (21.0-32.0) mmol/L Anion Gap (3-11) mmol/L BUN (7-18) mg/dL Creatinine (0.70-1.30) mg/dL Est GFR (CKD-EPI 2020) (mL/min/1.73m2) Glucose (74-106) mg/dL Calcium (8.5-10.1) mg/dL Magnesium (1.8-2.4) mg/dL Total Bilirubin (0.2-1.0) mg/dL AST (15-37) U/L ALT (16-63) U/L Alkaline Phosphatase (46-116) U/L Troponin I (<or=60) ng/L NT-Pro-B Natriuret Pep Total Protein (6.4-8.2) g/dL Albumin (3.4-5.0) g/dL TSH COVID-19 Source Nasopharynx SARS-CoV-2 (PCR) (Negative) Negative Influenza Type A (PCR) (Negative) Negative Influenza Type B (PCR) (Negative) Negative RSV (PCR) (Negative) Negative ECG Data Attestation: I personally reviewed and interpreted this ECG (s) as follows: Interpretation: Sinus tachycardia, ventricular rate of 145, right bundle branch block. No STEMI HPI General Mode of arrival: ambulatory . Date/Time Provider Initiated Documentation: 11/17/22 11:04 . Limitations to Documentation: no limitations . Information obtained by: patient . HPI Narrative: This is a 77-year-old male, former smoker, past medical history of COPD, presented to his PCP today for a preop of a right shoulder surgery, found to be wheezy, tachycardic, and coughing, patient reports this has been going on for 3- 4 weeks. Patient denies fever, headache, neck pain, chest pain, productive cough, abdominal pain, nausea, vomiting, back pain, pain or swelling in his legs. Patient reports that he feels as though there is phlegm that he simply cannot get out of his chest. He reports chest tightness specifically when coughing. He has been using his at home inhaler and neb machine as directed but not more than directed. Related Data Home Medications Medication Instructions Recorded Confirmed cholecalciferol (vitamin D3) 50 2,000 unit PO DAILY 01/09/13 11/17/22 mcg (2,000 unit) tablet [id number]-[id number]-[id number] C-Mn 750 2 ea PO DAILY 01/09/13 11/17/22 mg-600 mg-55 mg-5 mg tablet omega-3 fatty acids-fish oil 435 2 ea PO DAILY 01/09/13 11/17/22 mg-880 mg capsule (Fish Oil Extra Strength) garlic 1,000 mg capsule 1,000 mg PO DAILY 12/01/14 11/17/22 tamsulosin 0.4 mg capsule 0.4 mg PO DAILY #90 tab-caps 03/09/22 11/17/22 magnesium 500 mg tablet 500 mg PO DAILY 04/13/22 11/17/22 atorvastatin 10 mg tablet 10 mg PO DAILY #90 tabs 06/22/22 11/17/22 etodolac 500 mg tablet 500 mg PO BID #180 tabs 06/22/22 11/17/22 tiotropium bromide 18 mcg capsule 1 cap inhalation DAILY #3 tab-caps 06/22/22 11/17/22 with inhalation device (Spiriva with HandiHaler) hydrocortisone 2.5 % topical cream 1 applic topical BID PRN skin 08/01/22 11/17/22 irritation #30 grams levalbuterol tartrate 45 2 puff inhalation Q4H PRN ##1 08/01/22 11/17/22 mcg/actuation aerosol inhaler (Xopenex HFA) ipratropium 0.5 mg-albuterol 3 mg See Rx Instructions .Route 08/22/22 11/17/22 (2.5 mg base)/3 mL nebulization .COMPLEX #180 mL soln Previous Rx's Medication Instructions Recorded tamsulosin 0.4 mg capsule 0.4 mg PO DAILY #90 tab-caps 03/09/22 atorvastatin 10 mg tablet 10 mg PO DAILY #90 tabs 06/22/22 etodolac 500 mg tablet 500 mg PO BID #180 tabs 06/22/22 tiotropium bromide 18 mcg capsule 1 cap inhalation DAILY #3 tab-caps 06/22/22 with inhalation device (Spiriva with HandiHaler) hydrocortisone 2.5 % topical cream 1 applic topical BID PRN skin 08/01/22 irritation #30 grams levalbuterol tartrate 45 2 puff inhalation Q4H PRN ##1 08/01/22 mcg/actuation aerosol inhaler (Xopenex HFA) ipratropium 0.5 mg-albuterol 3 mg See Rx Instructions .Route 08/22/22 (2.5 mg base)/3 mL nebulization .COMPLEX #180 mL soln Allergies Allergy/AdvReac Type Severity Reaction Status Date / Time Latex, Natural Rubber AdvReac Intermediate Skin Rash Verified 11/17/22 10:14 walnuts Allergy Intermediate watery Uncoded 11/17/22 10:14 eyes and some swelling in mouth Fruits that have been sprayed Allergy Unknown eyes will Uncoded 11/17/22 10:14 swell if he eats them General Stated Complaint: RespSymp AVA: 2 Review of Systems Constitutional Constitutional: Denies fatigue, Denies fever(s), Denies headache(s) and Denies weakness ENT Ears, Nose, Mouth, and Throat: Denies headache(s) and Denies neck pain Cardiovascular Cardiovascular: Denies chest pain and Reports dyspnea Respiratory Respiratory: Reports cough, Reports dyspnea and Reports wheezing Gastrointestinal Gastrointestinal: Denies abdominal pain, Denies nausea and Denies vomiting Musculoskeletal Musculoskeletal: Denies back pain, Denies neck pain, Denies numbness and Denies tingling Integumentary/Breasts Skin/Breast: Denies rash Neurologic Neurologic: Denies headache(s), Denies numbness, Denies tingling and Denies weakness Endocrine Endocrine: Denies fatigue Hematologic/Lymphatic Hematologic/Lymphatic: Denies easy bleeding and Denies easy bruising Allergic/Immunologic Allergic/Immunologic: Reports wheezing PFSH All Active Problems (Updated 11/17/22 @ 14:34 by ASHLEY Tapia) Tachycardia (Acute) Elevated brain natriuretic peptide (BNP) level (Acute) Shortness of breath (Acute) Arthritis of right shoulder region (Acute) Family history of non-Hodgkin's lymphoma (Acute) Sister, mantle cell Impacted cerumen of both ears (Acute) Bilateral sensorineural hearing loss (Acute) Bilateral shoulder region arthritis (Acute) Psoriasis and similar disorder (Acute) Compound nevus of back (Acute) Osteopenia (Chronic 02/01/17) left hip T score (-0.9) 02/01/17; rx wt bearing exercise, adequate calcium, vit D Osteoarthritis (Chronic 06/28/15) gary both hands, 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 and T score Normal for LS spine (+2.1) Elevated prostate specific antigen (PSA) (Chronic 07/19/12) Chronic airway obstruction (Chronic 08/01/12) h/o pipe smoker; FEV1 2.28 (79%pred, 59%FVC 07/2012) incr RV, nl DLCO; d/c smoking 2011; GOLD 2 Moderate. FEV1 2.2 (2017, stable) Medical History Degenerative joint disease, shoulder, left Pat I think he will eventually need a total shoulder replacement. I explained to him that this is not a procedure that I do and I would recommend Dr. Choi at [facility] if he decides to have the surgery I also explained to him that use of injections specifically Depo-Medrol can be very helpful and can last for many months. I also explained that Visco supplementation has not been effective in the shoulder. He has a characteristic area of osteophyte formation inferomedially. This often has the appearance of wax dripping from the edge of a candle. He has no joint space on the AP and axillary views. There is no narrowing between the superior portion of the humeral head and the acromion to suggest rotator cuff tear arthropathy. For now he is content to continue with his exercise he will contact the office if he wants to try injection of corticosteroid into his left shoulder perhaps his right if that becomes more symptomatic Surgical History Prostate Biopsy (10/17/11) 6 bx neg ROHIT Moreno 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 MORROW Family History Mother , breast ca at age 43. Personal history of malignant neoplasm of Breast CA [address] 43 Father , suicide at age 49. Suicide depression, suicide at 49 Sister Cancer Indy Royal Mantle Cell Non-Hodgkin Lymphoma, diagnosed 2020, in remission Lung cancer Brother Age: 74 Diabetes Social History Smoking/Tobacco Use Status: Former Tobacco Use tobacco type: pipe Quit Date: 11/07/19 Smoking risk assessment performed?: Yes Alcohol Intake: never Drug use: Never Substance use type: does not use Household members: none Education Level: college Current gender identity: male Duration: 15-30 minutes/day Frequency: 3-4 times per week Seatbelt use: always Do you feel safe at home: Yes Do you feel safe in your relationship?: Yes Exam Const General: cooperative, healthy appearing, comfortable and no acute distress Orientation: alert and awake [facility] Head: normal to inspection, normocephalic and atraumatic Mouth: moist mucous membranes abnormal (Slightly dry) Eyes General: appearance normal, both eyes and all related structures Conjunctivae: conjunctivae normal Neck Neck: normal visual inspection, full ROM, no meningeal signs, trachea midline and supple Chest Chest: normal inspection of the chest and normal palpation of entire chest wall Resp Effort & Inspection: able to speak in complete sentences and tachypneic Auscultation: wheezes (Throughout) Cardio Rate: tachycardic (140s) Rhythm: regular rhythm GI Inspection: normal to inspection Palpation: soft, not firm, no guarding, no pulsatile masses and nontender Auscultation: normal bowel sounds Back/Spine/Pelvis Back: no CVA tenderness and No back tenderness Skin General skin exam: no rashes or lesions noted Neuro General: patient alert, patient awake, moves all extremities and no focal motor deficits Cognition: normal cognition Speech: speech normal Gait: normal gait Sensory Exam: no sensory deficits noted Extrem General: normal to inspection, full ROM, capillary refill normal, no pedal edema and no calf tenderness Psych Appearance: grossly normal Mental Status: mental status grossly normal Course Vital Signs Vital signs: Vital Signs Temperature 36.6 C 11/17/22 11:08 Pulse 145 H 11/17/22 11:08 Respiratory Rate 36 H 11/17/22 11:08 Blood Pressure 165/105 H 11/17/22 11:08 Pulse Oximetry 97 11/17/22 11:08 Temperature 36.6 C 11/17/22 11:08 Temperature Source Oral 11/17/22 11:08 Pulse 145 H 11/17/22 11:08 Respiratory Rate 36 H 11/17/22 11:08 Respiratory Effort Short of Breath, Labored 11/17/22 11:06 Blood Pressure 165/105 H 11/17/22 11:08 Pulse Oximetry 97 11/17/22 11:08 Oxygen Delivery Method Room Air 11/17/22 11:08 Oxygen Flow Rate 0 11/17/22 11:08 Critical Care Time Critical Care Time Critical Care Time: Yes Total Critical Care Time: 35 Attestation: Upon my evaluation, this patient had a high probability of clinically significant, life-threatening deterioration due to their current medical conditions, which required my direct attention, intervention, and personal management. I have personally provided greater than 30 minutes of critical care time exclusive of the time spend on separately billable procedures. Time includes obtaining a history, examining the patient, pulse oximetry, review of laboratory data, radiology results, discussion with consultants, arranging urgent treatment with development of a management plan, evaluation of patient's response to treatment, and monitoring for potential decompensation. Interventions were performed as documented above.
[2022-11-17 11:28] LABS: Abs Immature Grans 0.02 10^3/uL (0.0-0.06); Absolute Basophil Count 0.03 10^3/uL (0.0-0.2); Absolute Lymphocyte Count 0.94 10^3/uL (1.2-3.4); Absolute Monocyte Count 0.86 10^3/uL (0.1-0.8); Absolute Neutrophil Count 6.11 10^3/uL (1.2-6.7); Basophils % 0.4; Eosinophils % 1.2; HCT 40.9 % (40.0-50.0); HGB 13.3 g/dL (13.5-17.5); Immature Grans % 0.2; Lymphocytes % 11.7; MCH 30.2 pg (27.0-33.0); MCHC 32.5 % (32.0-36.0); MCV 93 fL (80-95); MPV 9.5 fL (8.0-11.0); Monocytes % 10.7; Neutrophils % 75.8; Platelet Count 187 10^3/uL (130-400); RBC 4.41 10^6/uL (4.36-5.78); WBC 8.06 10^3/uL (4.4-10.8)
[2022-11-17 11:47] LABS: INR 1.1 (0.9-1.1); PTT Activated 28.6 sec (21.5-31.9); Prothrombin Time 11.4 sec (9.3-11.0)
[2022-11-17 11:53] LABS: ALT 34 U/L (16-63); AST 21 U/L (15-37); Albumin 3.9 g/dL (3.4-5.0); Alkaline Phosphatase 74 U/L (46-116); Anion Gap 6.3 mmol/L (3-11); BUN 25 mg/dL (7-18); Bilirubin, Total 1.6 mg/dL (0.2-1.0); CO2 28.7 mmol/L (21.0-32.0); CREATININE 0.9 mg/dL (0.70-1.30); Calcium 9.2 mg/dL (8.5-10.1); Chloride 104 mmol/L (98-107); Estimated GFR 87.96 (mL/min/1.73m2); Glucose 123 mg/dL (74-106); Magnesium 2.2 mg/dL (1.8-2.4); NT-proBNP 2240 pg/mL (<300); Potassium 4.4 mmol/L (3.5-5.1); Sodium 139 mmol/L (136-145); TSH (W/Ref FT4) 1.68 uIU/mL (0.36-3.74); Total Protein 7.3 g/dL (6.4-8.2); Troponin I < 50 ng/L (<or=60)
[2022-11-17] MEDS: Labetalol 100 MG/20 ML VIAL 10 MG IVP ×2 (11:57→13:44)
[2022-11-17 12:00] LABS: D-Dimer 2142 ng/mlFEU (<500)
[2022-11-17] MEDS: Normal Saline 1,000 ML 1000 ML IV (12:00)
--- NOTE | 2022-11-17 12:00 | RT.EKG_ITS ---
APPROVED REPORT Exam: Resting ECG Reason for Exam: tachycardia Patient Location: E HR:113 bpm ECG Measurements Heart Rate 113 AXIS AL [id number] P [id number] QRSd 162 QRS 161 QT 355 T 70 QTc 487 Conclusion Atrial flutter...A-rate 277 Right bundle branch block...QRSd>120, terminal axis(90,270) I have reviewed and interpreted ECG and agree with software generated interpretation.
[2022-11-17 12:03] LABS: COVID-19 PCR Negative (Negative); Influenza A PCR Negative (Negative); Influenza B PCR Negative (Negative); RSV PCR Negative (Negative)
[2022-11-17 12:15] LABS: Source Nasopharynx
[2022-11-17] MEDS: Omnipaque 350 MG/ML 500 ML BTL-Imaging package IJ (12:44)
[2022-11-17] MEDS: Normal Saline - Diluent 50 ML VIAL IJ (12:45)
[2022-11-17 15:15] LABS: Troponin I < 50 ng/L (<or=60)
[2022-11-17] MEDS: dilTIAZem 25 MG/5 ML VIAL 10 MG IVP (17:00)
[2022-11-17] MEDS: Furosemide 40 MG/4 ML VIAL IVP (17:01)
[2022-11-17] MEDS: Enoxaparin 40 MG/0.4 ML SYR SC ×2 (17:56→18:45)
[2022-11-17] MEDS: dilTIAZem 25 MG/5 ML VIAL 15 MG IVP (17:56)
--- NOTE | 2022-11-17 18:01 | HPE_ITS ---
Date of service: 11/17/22 Time of Service: 18:01 Assessment and Plan Assessment and plan (1) Congestive heart failure: Status: Chronic Assessment and plan: Elevated BNP No known h/o CAD or failure. Likely related to aflutter with RVR. No prior echocardiograms in chart. Echocardiogram report pending. Lasix 40mg IV given; will observe response and then decide on further dosing. Goal directed therapies with Entresto vs ARB or ANDREA and Jardiance. (2) Atrial flutter: Status: Acute Assessment and plan: No known prior history. Response to 2 IV pushes of labetolol in ED was inadequate. Improved ventricular rate with IV pushes of Diltiazem, however he did have break-through return to a rapid ventricular response. Diltiazem drip initiated. Since [id number] score > 2, recommendation is long-term AC. Would coordinate this with his scheduled shoulder surgery when that is arranged. Likely change to a DOAC. (3) Arthritis of right shoulder region: Status: Acute Assessment and plan: Planned surgical intervention with Dr Bautista in early November. He has a f/u with Dr Bautista before the surgery. Likely will need to delay surgery. History of Present Illness History of Present Illness Chief Complaint: tachycardia and cough Narrative: This is a 77 yo male with a PMH of COPD, osteoarthritis, psoriasis. He initially presented to his PCP office on day of admission for preop evaluation in preparation for a right shoulder surgery. There, he was noted to be wheezy, tachycardic. He also had a cough that he has noted for 3-4 weeks. No fever, sputum though he feels there is phlegm he is unable to expectorate. No CP other than tightness with cough. No palpitaions. No pedal edema. In the ED his presenting BP was 165/105. Pulse in the 140's. EKG appeared to be flutter. RBBB. Lab showed a D-dimer of 2142. BNP of 2240. Fluvid negative. CT chest/abd/pelvis: no acute findings. Prostate noted to be enlarged with bladder outlet obstruction. 2 doses of IV labatelol administered with only temporary mild improvement in HR. Admitting to ICU Review of Systems All systems reviewed & are unremarkable except as noted in HPI and below PFSH All Active Problems (Updated 11/17/22 @ 18:15 by Nathan Aranda MD) Atrial flutter (Acute) Congestive heart failure (Chronic) Tachycardia (Acute) Elevated brain natriuretic peptide (BNP) level (Acute) Shortness of breath (Acute) Arthritis of right shoulder region (Acute) Family history of non-Hodgkin's lymphoma (Acute) Sister, mantle cell Impacted cerumen of both ears (Acute) Bilateral sensorineural hearing loss (Acute) Bilateral shoulder region arthritis (Acute) Psoriasis and similar disorder (Acute) Compound nevus of back (Acute) Osteopenia (Chronic 02/01/17) left hip T score (-0.9) 02/01/17; rx wt bearing exercise, adequate calcium, vit D Osteoarthritis (Chronic 06/28/15) gary both hands, 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 and T sco re Normal for LS spine (+2.1) Elevated prostate specific antigen (PSA) (Chronic 07/19/12) Chronic airway obstruction (Chronic 08/01/12) h/o pipe smoker; FEV1 2.28 (79%pred, 59%FVC 07/2012) incr RV, nl DLCO; d/c smoking 2011; GOLD 2 Moderate. FEV1 2.2 (2017, stable) Medical History Degenerative joint disease, shoulder, left Pat I think he will eventually need a total shoulder replacement. I ex plained to him that this is not a procedure that I do and I would recommend Dr. Choi at [facility] if he decides to have the surgery I also explained to him that use of injections specifically Depo-Medrol can be very helpful and can last for many months. I also explained that Visco supplementation has not been effective in the shoulder. He has a characteristic area of osteophyte formation inferomedially. This often has the appearance of wax dripping from the edge of a candle. He has no joint space on the AP and axillary views. There is no narrowing between the superior portion of the humeral head and the acromion to suggest rotator cuff tear arthropathy. For now he is content to continue with his exercise he will contact the office if he wants to try injection of corticosteroid into his left shoulder perhaps his right if that becomes more symptomatic Surgical History Prostate Biopsy (10/17/11) [address] Johnston, [facility] 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 MORROW Family History Mother , breast ca at age 43. Personal history of malignant neoplasm of Breast CA st 43 Father , suicide at age 49. Suicide depression, suicide at 49 Sister Cancer [place] Mantle Cell Non-Hodgkin Lymphoma, diagnosed 2020, in remission Lung cancer Brother Age: 74 Diabetes Social History Smoking/Tobacco Use Status: Former Tobacco Use tobacco type: pipe Quit Date: 11/07/19 Smoking risk assessment performed?: Yes Alcohol Intake: never Drug use: Never Substance use type: does not use Household members: none Education Level: college Current gender identity: male Duration: 15-30 minutes/day Frequency: 3-4 times per week Seatbelt use: always Do you feel safe at home: Yes Do you feel safe in your relationship?: Yes Meds Allergies and Home Medications Allergies Allergy/AdvReac Type Severity Reaction Status Date / Time Latex, Natural Rubber AdvReac Intermediate Skin Rash Verified 11/17/22 10:14 walnuts Allergy Intermediate watery Uncoded 11/17/22 10:14 eyes and some swelling in mouth Fruits that have been sprayed Allergy Unknown eyes will Uncoded 11/17/22 10:14 swell if he eats them Home Medications Medication Instructions Recorded Confirmed Type cholecalciferol (vitamin D3) 50 2,000 unit PO DAILY 01/09/13 11/17/22 History mcg (2,000 unit) tablet [id number] C-Mn 750 2 ea PO DAILY 01/09/13 11/17/22 History mg-600 mg-55 mg-5 mg tablet omega-3 fatty acids-fish oil 435 2 ea PO DAILY 01/09/13 11/17/22 History mg-880 mg capsule (Fish Oil Extra Strength) garlic 1,000 mg capsule 1,000 mg PO DAILY 12/01/14 11/17/22 History tamsulosin 0.4 mg capsule 0.4 mg PO DAILY #90 tab-caps 03/09/22 11/17/22 Rx magnesium 500 mg tablet 500 mg PO DAILY 04/13/22 11/17/22 History atorvastatin 10 mg tablet 10 mg PO DAILY #90 tabs 06/22/22 11/17/22 Rx etodolac 500 mg tablet 500 mg PO BID #180 tabs 06/22/22 11/17/22 Rx tiotropium bromide 18 mcg capsule 1 cap inhalation DAILY #3 tab-caps 06/22/22 11/17/22 Rx with inhalation device (Spiriva with HandiHaler) hydrocortisone 2.5 % topical cream 1 applic topical BID PRN skin 08/01/22 11/17/22 Rx irritation #30 grams levalbuterol tartrate 45 2 puff inhalation Q4H PRN ##1 08/01/22 11/17/22 Rx mcg/actuation aerosol inhaler (Xopenex HFA) ipratropium 0.5 mg-albuterol 3 mg See Rx Instructions .Route 08/22/22 11/17/22 Rx (2.5 mg base)/3 mL nebulization .COMPLEX #180 mL soln Exam Narrative Exam Narrative: Pleasant 77 yo male in NAD. Conversant. Const General: cooperative and no acute distress Nutritional Appearance: average body habitus Orientation: alert and oriented x3 Eyes General: appearance normal, both eyes and all related structures Conjunctivae: conjunctivae normal Neck Neck: normal visual inspection, full ROM and no JVD Resp Effort & Inspection: normal respiratory effort Auscultation: rales bilaterally in the lower lung stone Cardio Rate: tachycardic Rhythm: regular rhythm GI Inspection: other (protuberant) Palpation: soft and nontender Skin General skin exam: no rashes or lesions noted Neuro General: no focal motor deficits Cranial Nerves: facial strength normal Cognition: normal cognition Speech: other (Intermittently stutters) Extrem General: no calf tenderness and edema Laterality: bilateral (1+) Psych Appearance: grossly normal Mental Status: mental status grossly normal Affect: normal affect Results Labs 11/17/22 11:15 11/17/22 11:15 Labs: Laboratory Results - last 24 hr 11/17/22 11/17/2223 11:15 11:15 11:15 WBC RBC Hgb Hct MCV MCH MCHC RDW Plt Count MPV Immature Gran % Neutrophils % Lymphocytes % Monocytes % Eosinophils % Basophils % Nucleated RBC % Absolute Neutrophils Absolute Lymphocytes Absolute Monocytes Absolute Eosinophils Absolute Basophils PT 11.4 H INR 1.1 APTT 28.6 D-Dimer 2142 H Sodium 139 Potassium 4.4 Chloride 104 Carbon Dioxide 28.7 Anion Gap 6.3 BUN 25 H Creatinine 0.9 Est GFR (CKD-EPI 2020) 87.96 Glucose 123 H Calcium 9.2 Magnesium 2.2 Total Bilirubin 1.6 H AST 21 ALT 34 Alkaline Phosphatase 74 Troponin I < 50 NT-Pro-B Natriuret Pep Cancelled 2240 H Total Protein 7.3 Albumin 3.9 TSH Cancelled 1.68 COVID-19 Source SARS-CoV-2 (PCR) Influenza Type A (PCR) Influenza Type B (PCR) RSV (PCR) 11/17/22 11/17/22 11/17/22 11:15 11:20 14:45 WBC 8.06 RBC 4.41 Hgb 13.3 L Hct 40.9 MCV 93 MCH 30.2 MCHC 32.5 RDW 14.0 Plt Count 187 MPV 9.5 Immature Gran % 0.2 Neutrophils % 75.8 Lymphocytes % 11.7 Monocytes % 10.7 Eosinophils % 1.2 Basophils % 0.4 Nucleated RBC % 0.0 Absolute Neutrophils 6.11 Absolute Lymphocytes 0.94 L Absolute Monocytes 0.86 H Absolute Eosinophils 0.10 Absolute Basophils 0.03 PT INR APTT D-Dimer Sodium Potassium Chloride Carbon Dioxide Anion Gap BUN Creatinine Est GFR (CKD-EPI 2020) Glucose Calcium Magnesium Total Bilirubin AST ALT Alkaline Phosphatase Troponin I < 50 NT-Pro-B Natriuret Pep Total Protein Albumin TSH COVID-19 Source Nasopharynx SARS-CoV-2 (PCR) Negative Influenza Type A (PCR) Negative Influenza Type B (PCR) Negative RSV (PCR) Negative Last Vital Signs Temp 36.6 C 11/17/22 16:45 Pulse 133 H 11/17/22 17:00 Resp 27 H 11/17/22 15:29 BP 132/97 H 11/17/22 17:00 Pulse Ox 94 11/17/22 15:29 Time Spent Time spent with Patient: 40-54 minutes Time was spent: preparing to see the patient(eg.review tests), obtaining and/or reviewing separately otained hiistory, ordering medications,tests, procedures, indepentently interpreting results and counseling the patient
[2022-11-17] MEDS: Budesonide/Formoterol 80/4.5 6.9 GM 60 PUFF INH IH (20:50)
[2022-11-17] MEDS: Tamsulosin 0.4 MG CAPCR PO (20:50)
[2022-11-17] MEDS: dilTIAZem 30 MG TAB PO (20:50)
[2022-11-17] MEDS: dilTIAZem 125 MG in Normal Saline 100 ML IV (23:25)
[2022-11-18] VITALS (81 sets, daily range): BP systolic 97–151; BP diastolic 53–104; PULSE 46–172; RESP 11–38; TEMP 36.4–37.1; O2SAT 90–94
[2022-11-18] MEDS: Lidocaine 2% Jelly 6 ML SYR (02:30)
[2022-11-18] MEDS: Normal Saline Flush 10 ML SYR IVP ×4 (05:20→23:48)
[2022-11-18 06:03] LABS: ALT 37 U/L (16-63); AST 20 U/L (15-37); Albumin 3.3 g/dL (3.4-5.0); Alkaline Phosphatase 62 U/L (46-116); Anion Gap -0.1 mmol/L (3-11); BUN 33 mg/dL (7-18); Bilirubin, Total 0.9 mg/dL (0.2-1.0); CO2 26.1 mmol/L (21.0-32.0); CREATININE 0.9 mg/dL (0.70-1.30); Calcium 8.9 mg/dL (8.5-10.1); Chloride 105 mmol/L (98-107); Estimated GFR 87.96 (mL/min/1.73m2); Glucose 145 mg/dL (74-106); Potassium 3.2 mmol/L (3.5-5.1); Sodium 131 mmol/L (136-145); Total Protein 6.7 g/dL (6.4-8.2)
[2022-11-18 06:39] LABS: Troponin I < 50 ng/L (<or=60)
[2022-11-18] MEDS: Budesonide/Formoterol 80/4.5 6.9 GM 60 PUFF INH IH ×2 (07:54→21:11)
[2022-11-18] MEDS: Tiotropium Bromide-Respimat 10 PUFF INH 2 PUFF IH (07:55)
[2022-11-18] MEDS: Potassium Chloride 20 MEQ TABCR 40 MEQ PO (08:03)
[2022-11-18] MEDS: Enoxaparin 80 MG/0.8 ML SYR SC ×2 (08:03→21:03)
[2022-11-18] MEDS: Furosemide 20 MG TAB PO (08:04)
[2022-11-18] MEDS: Magnesium Gluconate 500 MG TAB PO (08:04)
[2022-11-18] MEDS: Atorvastatin 10 MG TAB PO (08:04)
[2022-11-18] MEDS: Metoprolol CR 50 MG TABCR PO (08:04)
--- NOTE | 2022-11-18 08:16 | INITIAL_ITS ---
- If Service Date Differs Date of service: 11/18/22 Time of Service: 08:16 Care Management Initial Assess REASON FOR HOSPITALIZATION:: Acute Congestive Heart Failure. PAST MEDICAL HISTORY/PAST SURGICAL HISTORY:: All Active Problems: Atrial flutter (Acute), Congestive heart failure (Chronic), Tachycardia (Acute), Elevated brain natriuretic peptide (BNP) level (Acute), Shortness of breath (Acute), Arthritis of right shoulder region (Acute), Family history of non- Hodgkin's lymphoma (Acute) -. Sister, mantle cell, Impacted cerumen of both ears (Acute), Bilateral sensorineural hearing loss (Acute), Bilateral shoulder region arthritis (Acute), Psoriasis and similar disorder (Acute), Compound nevus of back (Acute), Osteopenia (Chronic 02/01/17) - left hip T score (-0.9) 02/01/17; rx wt bearing exercise, adequate calcium, vit D, Osteoarthritis (Chronic 06/28/15) - gary both hands, s/p L knee TKA 05/2015; back with sciatica; one brand of generic Etodolac works best, Loss of height (Chronic 01/08/17) - 3.5 in loss since age 20 (5'8.5); to 5'5; no comp fx at LS spine. and T score Normal for LS spine (+2.1), Elevated prostate specific antigen (PSA) (Chronic 07/19/12), and Chronic airway obstruction (Chronic 08/01/12) - h/o pipe smoker; FEV1 2.28 (79%pred, 59%FVC 07/2012) incr RV, nl DLCO; d/c smoking 2011; GOLD 2 Moderate. FEV1 2.2 (2017, stable). Medical History: Degenerative joint disease, shoulder, left: Pat I think he will eventually need a total shoulder replacement. I explained to him that this is not a procedure that I do and I would recommend Dr. Choi at [facility] if he decides to have the surgery I also explained to him that use of injections specifically Depo-Medrol can be very helpful and can last for many months. I also explained that Visco supplementation has not been effective in the shoulder. He has a characteristic area of osteophyte formation inferomedially. This often has the appearance of wax dripping from the edge of a candle. He has no joint space on the AP and axillary views. There is no narrowing between the superior portion of the humeral head and the acromion to suggest rotator cuff tear arthropathy. For now he is content to continue with his exercise he will contact the office if he wants to try injection of corticosteroid into his left shoulder perhaps his right if that becomes more symptomatic. Surgical History: Prostate Biopsy (10/17/11) - [address] Johnston, [facility]. Replacement of total knee joint (06/09/15) - LEFT KNEE/DR. MORROW. PREVIOUS FUNCTIONAL STATUS/SOCIAL/FAMILY SUPPORTS:: Garland lives alone in [place]. He is and has 4 adult children and 9 grandchildren spread throughout the [facility]. He also has a brother who lives locally and is supportive. Garland drives and is independent at baseline. CURRENT FUNCTIONAL STATUS:: Garland is sitting in a chair and is eating his dinner when CM comes by to see him. He is pleasant and easily engages in conversation. He shares that he has a very close family and despite living in various states throughout [place], they visit weekly via zoom. ADVANCE DIRECTIVES:: None on file; Garland has an Advance Directives at home which he intends on completing following his discharge from the hospital. Has patient been provided with info about the portal/API?: Yes Did the patient sign up for the portal?: Yes (Previously enrolled) CODE STATUS:: Full Code INSURANCE COVERAGE / FINANCIAL ISSUES:: [employer] Senior Supplemental Insurance and Medicare. CURRENT HOME/COMMUNITY SERVICES/EQUIPMENT:: None. PRIMARY CARE PHYSICIAN:: Shayne Portillo DO. POTENTIAL DISCHARGE NEEDS:: Follow up appointments with PCP and cardiology. PATIENT/FAMILY EDUCATION NEEDS:: Review of discharge instructions including medications, limitations and follow up plan of care; discuss Ask Me Three. ANTICIPATED BARRIERS TO DISCHARGE:: None identified at this time. TRANSPORTATION:: Garland will drive himself home as his car is in the [facility] parking lot. PLAN:: Garland will likely be discharged home with no services when medically cleared by provider. He will follow up with his PCP, welder/fitter, and plan of care as instructed. He will drive himself home via private vehicle when ready. CM will continue to follow.
--- NOTE | 2022-11-18 08:37 | PGE_ITS ---
Date of Service Date of service: 11/18/22 Time of Service: 08:38 Assessment and Plan Assessment and plan (1) Atrial flutter: Status: Acute Assessment and plan: With rapid ventricular response. new diagnosis. Transitioning from cardizem gtt to PO metoprolol given low LVEF. Keep in ICU. [id number] score of 3, would benefit from skilled nursing anticoagulation. On full dose lovenox in house; anticipate discharge home on a DOAC. Qualifiers: Atrial flutter type: unspecified Qualified Code(s): I48.92 - Unspecified atrial flutter (2) Congestive heart failure: Status: Chronic Assessment and plan: Agree that there is a rate-related component. In addition, his echo shows LVEF of 25-30% (while tachycardic) w/ severe global hypokinesis and moderate to severe and moderate mitral regurgitation. Euvolemic at this time. Will reassess need for diuretics on daily basis, but I don't think he needs furosemide today especially considering his and need for preload and dizziness this am. Goal is on rate control and beta blockers are being introduced this morning now that he is euvolemic. If BP tolerates, would like to add goal directed therapy with Entresto vs ARB or ANDREA and Jardiance. Qualifiers: Heart failure type: systolic Heart failure chronicity: acute Qualified Code(s): I50.21 - Acute systolic (congestive) heart failure (3) Aortic stenosis: Status: Chronic Assessment and plan: moderate to severe per echo. As the patient appears euvolemic at this time, I will not continue PO furosemide. WIll focus on rate control and reassess volume status tomorrow. (4) Urinary retention: Status: Acute Assessment and plan: S/p jackson catheter overnight wth increase of flomax dose. Plan is for VT tomorrow morning if HR better controlled and urology follow up. If the patient is spending the night tomorrow, would benefit from a urology consultation and would hold off on voiding trial until Sunday. 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 (6) Chronic cough: Status: Chronic Assessment and plan: Encourage pulmonary toilet. Obtain sputum cx. No role for abx. (7) Hypokalemia: Status: Acute Assessment and plan: Replete and recheck in am. (8) DVT prophylaxis: Status: Acute Assessment and plan: Therapeutic enoxaparin (9) Discharge planning issues: Status: Acute Assessment and plan: Full code Keep in ICU. Total Critical Care Time 45 minutes. Subjective Subjective Interval history since last seen: Mr Gunderson feels much better today. Specifically, he is referring to his breathing. His wheezing and shortness of breath are gone. Cough is now productive of yellowish sputum. He does not feel like he has a respiratory infection. He did get a little lightheaded when he got up from bed this morning, but feels better now. He has not had any chest pain or tightness. Denies n/v. Overnight, was finding to be retaining 1000 cc of urine in his bladder and had a jackson catheter inserted. On RA. Cough productive of yellowish sputum - normal for him. Spent the night on cardizem gtt at 5 mg/hr. This morning, when it was stopped, the HR shot up to 140s. Exam Narrative Exam Narrative: General: Pleasant male who is having breakfast, A&Ox3, on RA, no dyspnea/tachypnea/cyanosis HEENT: EOMI, MMM Heart: irregularly irregular rhythm, no clear murmur auscultated Lungs: CTAB Abdomen: soft, nontender, nondistended Extremities: trace edema at ankles. Objective Last Vital Signs Temp 36.6 C 11/18/22 04:00 Pulse 72 11/18/22 06:00 Resp 21 11/18/22 06:10 BP 103/69 11/18/22 06:00 Pulse Ox 93 11/18/22 04:00 Laboratory Results - last 24 hr 11/17/22 11/17/22 11/17/22 11:15 11:15 11:15 WBC RBC Hgb Hct MCV MCH MCHC RDW Plt Count MPV Immature Gran % Neutrophils % Lymphocytes % Monocytes % Eosinophils % Basophils % Nucleated RBC % Absolute Neutrophils Absolute Lymphocytes Absolute Monocytes Absolute Eosinophils Absolute Basophils PT 11.4 H INR 1.1 APTT 28.6 D-Dimer 2142 H Sodium 139 Potassium 4.4 Chloride 104 Carbon Dioxide 28.7 Anion Gap 6.3 BUN 25 H Creatinine 0.9 Est GFR (CKD-EPI 2020) 87.96 Glucose 123 H Calcium 9.2 Magnesium 2.2 Total Bilirubin 1.6 H AST 21 ALT 34 Alkaline Phosphatase 74 Troponin I < 50 NT-Pro-B Natriuret Pep Cancelled 2240 H Total Protein 7.3 Albumin 3.9 TSH Cancelled 1.68 COVID-19 Source SARS-CoV-2 (PCR) Influenza Type A (PCR) Influenza Type B (PCR) RSV (PCR) 11/17/22 11/17/22 11/17/22 11:15 11:20 14:45 WBC 8.06 RBC 4.41 Hgb 13.3 L Hct 40.9 MCV 93 MCH 30.2 MCHC 32.5 RDW 14.0 Plt Count 187 MPV 9.5 Immature Gran % 0.2 Neutrophils % 75.8 Lymphocytes % 11.7 Monocytes % 10.7 Eosinophils % 1.2 Basophils % 0.4 Nucleated RBC % 0.0 Absolute Neutrophils 6.11 Absolute Lymphocytes 0.94 L Absolute Monocytes 0.86 H Absolute Eosinophils 0.10 Absolute Basophils 0.03 PT INR APTT D-Dimer Sodium Potassium Chloride Carbon Dioxide Anion Gap BUN Creatinine Est GFR (CKD-EPI 2020) Glucose Calcium Magnesium Total Bilirubin AST ALT Alkaline Phosphatase Troponin I < 50 NT-Pro-B Natriuret Pep Total Protein Albumin TSH COVID- Source Nasopharynx SARS-CoV-2 (PCR) Negative Influenza Type A (PCR) Negative Influenza Type B (PCR) Negative RSV (PCR) Negative 11/18/22 11/18/22 05:37 05:37 WBC RBC Hgb Hct MCV MCH MCHC RDW Plt Count MPV Immature Gran % Neutrophils % Lymphocytes % Monocytes % Eosinophils % Basophils % Nucleated RBC % Absolute Neutrophils Absolute Lymphocytes Absolute Monocytes Absolute Eosinophils Absolute Basophils PT INR APTT D-Dimer Sodium 131 L Potassium 3.2 L D Chloride 105 Carbon Dioxide 26.1 Anion Gap -0.1 L BUN 33 H Creatinine 0.9 Est GFR (CKD-EPI 2020) 87.96 Glucose 145 H Calcium 8.9 Magnesium Total Bilirubin 0.9 AST 20 ALT 37 Alkaline Phosphatase 62 Troponin I < 50 NT-Pro-B Natriuret Pep Total Protein 6.7 Albumin 3.3 L TSH COVID-19 Source SARS-CoV-2 (PCR) Influenza Type A (PCR) Influenza Type B (PCR) RSV (PCR) Multi-Disciplinary Checklist Lines/Tubes CENTRAL LINE: no ARTERIAL LINE: no JACKSON: yes, Jackson Day#: 0 Note: Urinary retention of 1000 cc ICU Maintenance GLUCOSE 140-180mg/dL: yes NUTRITION AT GOAL: yes PRESSURE ULCER: no RESTRAINTS: no ANTIBIOTICS(if yes, consider Stewardship): No Social Issues FAMILY UPDATED: no, Reason/Intervention: Patient able to update family PT/OT: no, Reason/Intervention: Patient at his baseline mobility GOALS/DISPOSITION/NIGHT SHIFT MANAGER: yes CODE STATUS: Full Prophylaxis DVT PROPHYLAXIS: no Reason/Intervention: on therapeutic lovenox GI PROPHYLAXIS: no Time Spent with Patient Time Spent with Patient: 35-49 minutes Time was spent: preparing to see the patient(eg.review tests), obtaining and/or reviewing separately otained hiistory, ordering medications,tests, procedures, referring, communicating with other health hospice care sales consultant, indepentently interpreting results, counseling the patient and care coordination
[2022-11-18 09:15] LABS: Bilirubin Moderate (Negative); Blood Moderate (Negative); Clarity Sl Cloudy (Clear); Glucose Negative (Negative); Ketones Negative (Negative); Leukocyte Esterase Negative (Negative); Nitrite Negative (Negative); Specific Gravity >= 1.030 (1.005-1.025); Urobilinogen 0.2 mg/dL (Up to 0.2); pH 5.5 (5-8)
[2022-11-18 09:24] LABS: Bacteria Moderate HPF (Negative); Crystals Negative HPF (Negative); Epithelial Cells Many HPF (Negative); Mucus Moderate (Negative); RBC 20-50 HPF (0-2); WBC 0-2 HPF (0-5)
[2022-11-18 09:25] LABS: C & S Indicated? No/Sq. Contamination; Casts Negative LPF (Negative)
[2022-11-18] MEDS: Metoprolol 50 MG TAB PO (12:33)
[2022-11-18] MEDS: Metoprolol 5 MG/5 ML VIAL IVP ×3 (13:53→21:09)
[2022-11-18] MEDS: Metoprolol 50 MG TAB 75 MG PO ×2 (17:35→23:40)
[2022-11-18] MEDS: Digoxin 0.5 MG/2 ML AMP 0.125 MG IVP ×2 (17:35→23:42)
[2022-11-18] MEDS: Tamsulosin 0.4 MG CAPCR 0.8 MG PO (21:03)
[2022-11-19] VITALS (36 sets, daily range): BP systolic 109–136; BP diastolic 64–111; PULSE 43–146; RESP 11–32; TEMP 36.5–36.9; O2SAT 96
[2022-11-19] MEDS: Metoprolol 50 MG TAB 75 MG PO ×4 (06:01→23:17)
[2022-11-19] MEDS: Refresh PLUS Eye Drops 0.4ml 30 EACH (06:02)
[2022-11-19] MEDS: Digoxin 0.5 MG/2 ML AMP 0.125 MG IVP (06:02)
[2022-11-19 06:57] LABS: Abs Immature Grans 0.03 10^3/uL (0.0-0.06); Absolute Basophil Count 0.02 10^3/uL (0.0-0.2); Absolute Eosinophil Count 0.03 10^3/uL (0.0-0.7); Absolute Lymphocyte Count 1.38 10^3/uL (1.2-3.4); Absolute Monocyte Count 0.97 10^3/uL (0.1-0.8); Basophils % 0.2; Eosinophils % 0.3; HCT 37.6 % (40.0-50.0); HGB 12.6 g/dL (13.5-17.5); Immature Grans % 0.3; Lymphocytes % 14.5; MCH 31.2 pg (27.0-33.0); MCHC 33.5 % (32.0-36.0); MCV 93 fL (80-95); MPV 10.3 fL (8.0-11.0); Monocytes % 10.2; Neutrophils % 74.5; Platelet Count 182 10^3/uL (130-400); RBC 4.04 10^6/uL (4.36-5.78); RDW 14.4 % (11.8-14.1); RDW-SD 49.6 fL; WBC 9.53 10^3/uL (4.4-10.8)
[2022-11-19 07:11] LABS: Anion Gap 8.3 mmol/L (3-11); BUN 46 mg/dL (7-18); CO2 25.7 mmol/L (21.0-32.0); Chloride 110 mmol/L (98-107); Estimated GFR 77.52 (mL/min/1.73m2); Glucose 104 mg/dL (74-106); Magnesium 2.2 mg/dL (1.8-2.4); Potassium 4.2 mmol/L (3.5-5.1); Sodium 144 mmol/L (136-145)
[2022-11-19] MEDS: Tiotropium Bromide-Respimat 10 PUFF INH 2 PUFF IH (07:27)
[2022-11-19] MEDS: Budesonide/Formoterol 80/4.5 6.9 GM 60 PUFF INH IH ×2 (07:31→20:17)
[2022-11-19] MEDS: Atorvastatin 10 MG TAB PO (07:33)
[2022-11-19] MEDS: Digoxin 0.125 MG TAB PO (07:33)
[2022-11-19] MEDS: Magnesium Gluconate 500 MG TAB PO (07:33)
[2022-11-19] MEDS: Enoxaparin 80 MG/0.8 ML SYR SC ×2 (07:33→20:18)
[2022-11-19] MEDS: Normal Saline Flush 10 ML SYR IVP (07:55)
[2022-11-19] MEDS: Amiodarone in Dextrose 360 MG/200 ML BAG 33.333 MG IV ×2 (12:23→15:05)
[2022-11-19] MEDS: Levalbuterol HFA 15 GM INH 2 PUFF IH (14:40)
--- NOTE | 2022-11-19 14:54 | PGE_ITS ---
Date of Service Date of service: 11/19/22 Time of Service: 08:30 Assessment and Plan Assessment and plan (1) Atrial flutter: Status: Acute Assessment and plan: With rapid ventricular response. new diagnosis. Rates uncontrolled despite metoprolol + digoxin. Started on amiodarone gtt today. Continue metoprolol. D/c digoxin. Keep in ICU. [id number] score of 3, would benefit from longterm anticoagulation. On full dose lovenox in house; anticipate discharge home on a DOAC. Qualifiers: Atrial flutter type: unspecified Qualified Code(s): I48.92 - Unspecified atrial flutter (2) Congestive heart failure: Status: Chronic Assessment and plan: Agree that there is a rate-related component in addition to systolic dysfunction and valvular component. His echo shows LVEF of 25-30% (while tachycardic) w/ severe global hypokinesis and moderate to severe and moderate mitral regurgitation. Euvolemic at this time. Will reassess need for diuretics on daily basis. I do not feel he needs diuresis today. Goal is on rate control. If BP tolerates, would like to add goal directed therapy with Entresto vs ARB or ANDREA and Jardiance. Qualifiers: Heart failure type: systolic Heart failure chronicity: acute Qualified Code(s): I50.21 - Acute systolic (congestive) heart failure (3) Aortic stenosis: Status: Chronic Assessment and plan: moderate to severe per echo. As the patient appears euvolemic at this time, I will not continue PO furosemide. Will focus on rate control and reassess volume status tomorrow. (4) Urinary retention: Status: Acute Assessment and plan: D/c Lomas and do a voiding trial. If fails VT, would benefit from a urology consultation. 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 (6) Chronic cough: Status: Chronic Assessment and plan: Encourage pulmonary toilet. Sputum C&S with Gram positive/normal giovanni. No role for abx. (7) Hypokalemia: Status: Resolved Assessment and plan: Recheck in am. (8) DVT prophylaxis: Status: Acute Assessment and plan: Therapeutic enoxaparin (9) Discharge planning issues: Status: Acute Assessment and plan: Full code Keep in ICU. Total Critical Care Time 40 minutes. Subjective Subjective Interval history since last seen: Mr Gunderson feels better. His breathing is much better. His cough is c/w his chronic cough. Denies dizziness, chest pain, shortness of breath, nausea, palpitations. Unfortunately, his HR went up to 140s this morning and has stayed there. He is being started on amiodarone gtt today. He is also undergoing a voiding trial. Exam Narrative Exam Narrative: General: Pleasant male who is sitting up in a chair, A&Ox3, on RA, no dyspnea/tachypnea/cyanosis HEENT: EOMI, MMM Heart: tachycardic, seemingly regular rhythm Lungs: slightly coarse breath sounds at B bases Abdomen: soft, nontender, nondistended Extremities: trace edema at ankles. Objective Last Vital Signs Temp 36.9 C 11/19/22 12:00 Pulse 70 11/19/22 14:00 Resp 17 11/19/22 14:00 BP 117/89 11/19/22 14:00 Pulse Ox 93 11/18/22 14:00 Laboratory Results - last 24 hr 11/19/22 11/19/22 05:39 05:39 WBC 9.53 RBC 4.04 L Hgb 12.6 L Hct 37.6 L MCV 93 MCH 31.2 MCHC 33.5 RDW 14.4 H Plt Count 182 MPV 10.3 Immature Gran % 0.3 Neutrophils % 74.5 Lymphocytes % 14.5 Monocytes % 10.2 Eosinophils % 0.3 Basophils % 0.2 Nucleated RBC % 0.0 Absolute Neutrophils 7.10 H Absolute Lymphocytes 1.38 Absolute Monocytes 0.97 H Absolute Eosinophils 0.03 Absolute Basophils 0.02 Sodium 144 D Potassium 4.2 D Chloride 110 H Carbon Dioxide 25.7 Anion Gap 8.3 BUN 46 H Creatinine 1.0 Est GFR (CKD-EPI 2020) 77.52 Glucose 104 Calcium 9.0 Magnesium 2.2 Multi-Disciplinary Checklist Lines/Tubes CENTRAL LINE: no ARTERIAL LINE: no LOMAS: no ENDOTRACHEAL TUBE: no ICU Maintenance GLUCOSE 140-180mg/dL: yes NUTRITION AT GOAL: yes PRESSURE ULCER: no RESTRAINTS: no ANTIBIOTICS(if yes, consider Stewardship): No Social Issues FAMILY UPDATED: no, Reason/Intervention: Patient able to update family PT/OT: no, Reason/Intervention: Patient is ambulatory GOALS/DISPOSITION/E LEARNING MANAGER: yes CODE STATUS: Full Prophylaxis DVT PROPHYLAXIS: yes GI PROPHYLAXIS: no Time Spent with Patient Time Spent with Patient: 35-49 minutes Time was spent: preparing to see the patient(eg.review tests), obtaining and/or reviewing separately otained hiistory, ordering medications,tests, procedures, referring, communicating with other health career development specialist, indepentently interpreting results, counseling the patient and care coordination
[2022-11-19] MEDS: Tamsulosin 0.4 MG CAPCR 0.8 MG PO (20:17)
[2022-11-19] MEDS: Amiodarone in Dextrose 360 MG/200 ML BAG 16.667 MG IV (23:19)
[2022-11-20] VITALS (21 sets, daily range): BP systolic 112–162; BP diastolic 66–106; PULSE 43–135; RESP 14–31; TEMP 36.6–37.4; O2SAT 93–95
[2022-11-20] MEDS: Metoprolol 50 MG TAB 75 MG PO ×2 (05:47→12:00)
[2022-11-20 06:20] LABS: Anion Gap 8.4 mmol/L (3-11); BUN 35 mg/dL (7-18); CO2 26.6 mmol/L (21.0-32.0); Chloride 107 mmol/L (98-107); Estimated GFR 77.52 (mL/min/1.73m2); Glucose 99 mg/dL (74-106); Magnesium 1.8 mg/dL (1.8-2.4); Potassium 3.9 mmol/L (3.5-5.1); Sodium 142 mmol/L (136-145)
[2022-11-20] MEDS: Tiotropium Bromide-Respimat 10 PUFF INH 2 PUFF IH (08:04)
[2022-11-20] MEDS: Budesonide/Formoterol 80/4.5 6.9 GM 60 PUFF INH IH (08:05)
[2022-11-20] MEDS: Atorvastatin 10 MG TAB PO (08:42)
[2022-11-20] MEDS: Magnesium Gluconate 500 MG TAB PO (08:42)
[2022-11-20] MEDS: Enoxaparin 80 MG/0.8 ML SYR SC (08:42)
[2022-11-20] MEDS: Amiodarone in Dextrose 360 MG/200 ML BAG 33.333 MG IV (10:04)
[2022-11-20] MEDS: MAGNESIUM SULFATE 2 GM/50 ML BAG IVPB (10:04)
--- NOTE | 2022-11-20 11:30 | RT.EKG_ITS ---
APPROVED REPORT Exam: Resting ECG Reason for Exam: persistent rapid Aflutter Patient Location: I HR:132 bpm ECG Measurements Heart Rate 132 AXIS KS 77 P 60 QRSd 167 QRS 154 QT 363 T 50 QTc 538 Conclusion Atrial flutter Ventricular premature complex...V complex w/ short R-R interval Right bundle branch block...QRSd>120, terminal axis(90,270)
--- NOTE | 2022-11-20 11:37 | CCONE_ITS ---
Date of service: 11/20/22 Time of Service: 11:37 Assessment and Plan Assessment and plan (1) Atrial flutter: Status: Acute Assessment and plan: Patient has atrial flutter. Rate control has been difficult. I recommended stopping amiodarone as patient has not been anticoagulated until this current pr esentation and there is risk of stroke. Ideally, I would recommend that he have a KYLE/cardioversion to try and restore sinus rhythm. This would necessitate transfer to either [facility] or similar. He is now on enoxaparin for anticoagulation. I suspect he has had elevated heart rates for a while and this precipitated cardiomyopathy, see below Qualifiers: Atrial flutter type: unspecified Qualified Code(s): I48.92 - Unspecified atrial flutter (2) Congestive heart failure: Status: Chronic Assessment and plan: Heart failure is better with diuretics. It may be that the patient has tachycardia mediated cardiomyopathy and would benefit from spiritism of sinus rhythm Qualifiers: Heart failure type: systolic Heart failure chronicity: acute Qualified Code(s): I50.21 - Acute systolic (congestive) heart failure (3) Aortic stenosis: Status: Chronic Assessment and plan: If sinus rhythm can be restored, repeat echocardiography to evaluate his aortic valve gradients would be appropriate History of Present Illness History of Present Illness Chief Complaint: Difficulty breathing, atrial flutter, aortic valve disease Narrative: This is a 77-year-old man who has been having issues with chronic shoulder pain for quite a while. He is actually scheduled to have shoulder surgery within the next week or 2 and went to see his primary care provider for preoperative evaluation on the day of admission. He was noted to be tachycardic with a heart rate of about 140s, short of breath and wheezing. He was referred to the emergency room where he was found to be in atrial flutter with an uncontrolled rate, and also had decompensated heart failure. He initially was treated with intravenous diltiazem for rate control and then transitioned to metoprolol tartrate. His heart rate remained elevated and intravenous amiodarone was prescribed. He briefly had been given digoxin. The congestive heart failure has responded well to IV diuretics and the patient currently is comfortable He has not been aware of any elevated heart rate nor does he describe any past history of cardiac illness. He does say that for at least the last month, maybe longer, he has had significant exertional shortness of breath and wheezing. Sometimes when he is in bed at night he feels as though his breathing is la bored. He has not been dizzy or lightheaded. He has had no chest pain His echocardiogram reported severe left ventricular dysfunction with an ejection fraction of 25 to 30% as well as moderate to severe aortic stenosis. It was notably a technically suboptimal study and he was tachycardic throughout EKGs have shown atrial flutter, right bundle branch block Review of Systems Cardiovascular Cardiovascular: Reports as per HPI, Denies chest pain, Denies lightheadedness, Denies palpitations, Reports dyspnea, Reports dyspnea on exertion and Reports orthopnea Respiratory Respiratory: Reports dyspnea and Reports dyspnea on exertion Endocrine Endocrine: Denies palpitations PFSH All Active Problems (Updated 11/19/22 @ 15:15 by Dipika Zendejas MD) Urinary retention (Acute) Discharge planning issues (Acute) DVT prophylaxis (Acute) Chronic cough (Chronic) Aortic stenosis (Chronic) Atrial flutter (Acute) Congestive heart failure (Chronic) Tachycardia (Acute) Elevated brain natriuretic peptide (BNP) level (Acute) Shortness of breath (Acute) Arthritis of right shoulder region (Chronic) Family history of non-Hodgkin's lymphoma (Acute) Sister, mantle cell Impacted cerumen of both ears (Acute) Bilateral sensorineural hearing loss (Acute) Bilateral shoulder region arthritis (Acute) Psoriasis and similar disorder (Acute) Compound nevus of back (Acute) Osteopenia (Chronic 02/01/17) left hip T score (-0.9) 02/01/17; rx wt bearing exercise, adequate calcium, vit D Osteoarthritis (Chronic 06/28/15) gary both hands, 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 and T score Normal for LS spine (+2.1) Elevated prostate specific antigen (PSA) (Chronic 07/19/12) Chronic airway obstruction (Chronic 08/01/12) h/o pipe smoker; FEV1 2.28 (79%pred, 59%FVC 07/2012) incr RV, nl DLCO; d/c smoking 2011; GOLD 2 Moderate. FEV1 2.2 (2017, stable) Medical History Degenerative joint disease, shoulder, left Pat I think he will eventually need a total shoulder replacement. I explained to him that this is not a procedure that I do and I would recommend Dr. Choi at [facility] if he decides to have the surgery I also explained to him that use of injections specifically Depo-Medrol can be very helpful and can last for many months. I also explained that Visco supplementation has not been effective in the shoulder. He has a characteristic area of osteophyte formation inferomedially. This often has the appearance of wax dripping from the edge of a candle. He has no joint space on the AP and axillary views. There is no narrowing between the superior portion of the humeral head and the acromion to suggest rotator cuff tear arthropathy. For now he is content to continue with his exercise he will contact the office if he wants to try injection of corticosteroid into his left shoulder perhaps his right if that becomes more symptomatic Surgical History Prostate Biopsy (10/17/11) [address] Johnston, [facility] 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 MORROW Family History Mother , breast ca at age 43. Personal history of malignant neoplasm of Breast CA [address] 43 Father , suicide at age 49. Suicide depression, suicide at 49 Sister Cancer Indy Royal Mantle Cell Non-Hodgkin Lymphoma, diagnosed 2020, in remission Lung cancer Brother Age: 74 Diabetes Social History Smoking/Tobacco Use Status: Former Tobacco Use tobacco type: pipe Quit Date: 11/07/19 Smoking risk assessment performed?: Yes Alcohol Intake: never Drug use: Never Substance use type: does not use Household members: none Education Level: college Current gender identity: male Duration: 15-30 minutes/day Frequency: 3-4 times per week Seatbelt use: always Do you feel safe at home: Yes Do you feel safe in your relationship?: Yes Exam Const Other: Well-developed well-nourished normal weight no acute distress Neck Other: No neck vein distention no V waves carotid pulsations are grossly normal in upstroke and volume with bilateral faint transmitted murmurs Resp Auscultation: clear to auscultation bilaterally Cardio Other: Regular tachycardic 2/6 systolic ejection quality murmur Skin Other: Warm and dry Extrem Other: No significant edema Results Last Vital Signs Temp 36.6 C 11/20/22 08:00 Pulse 134 H 11/20/22 10:01 Resp 20 11/20/22 10:01 BP 112/66 11/20/22 10:01 Pulse Ox 95 11/20/22 05:52 Labs 11/19/22 05:39 11/20/22 05:20 Labs: Laboratory Results - last 24 hr 11/20/22 05:20 Sodium 142 Potassium 3.9 Chloride 107 Carbon Dioxide 26.6 Anion Gap 8.4 BUN 35 H Creatinine 1.0 Est GFR (CKD-EPI 2020) 77.52 Glucose 99 Calcium 9.0 Magnesium 1.8
--- NOTE | 2022-11-20 13:00 | W.UROLOGYCON ---
Date of service: 11/20/22 Time of Service: 13:01 Assessment and Plan Assessment and plan (1) Urinary retention: Status: Acute Assessment and plan: He is already on maximum dose of tamsulosin. We suggested adding in a daily dose of a 5 alpha reductase inhibitors such as finasteride. The 5 alpha reductase inhibitors are unlikely to cause any improvement in his symptoms in the short run, but have been shown to help prevent episodes of urinary retention in the long run. I would expect that he will continue with the higher dose of tamsulosin at least until his shoulder surgeries have been completed. We know that some patients have more difficulty voiding immediately after surgery/anesthesia. Once all of his surgical procedures have been completed, we can consider weaning back down to 0.4 mg on his tamsulosin. In the meantime, if he were to develop retention again, our options would be intermittent catheterization, placement of a urethral catheter or suprapubic tube, or even consideration of a transurethral resection of the prostate. 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 He recalls that when he was living in [facility] he was seeing a urologist. When he relocated to our area, the urologist recommendation was that the patient establish care with a urologist here in [place]. The patient then saw Dr. Jason sanchez at the [facility]. He recalls having had a prostate biopsy that showed no malignancy. The patient describes difficulty urinating starting back in 2014 when he had a hip replacement surgery. He actually had an extended stay in the hospital specifically for the urination rather than for the hip itself. He was started on tamsulosin 0.4 mg about that time. He was admitted to the hospital with congestive heart failure, atrial flutter and urinary retention. A Bethea catheter was placed for over a liter of urine. His dose of tamsulosin has been increased and his catheter has been removed. I have been asked to see him for his urinary issues. The patient is concerned about the possibility of developing retention again. Prior to the admission, he was not having any problems with constipation. He was not taking any prescription or [id number] sinus medications. He does admit that he has not been able to exercise as frequently due to the issues he has with his shoulders. He will require shoulder replacement surgery at some point in time. Other than the prostate biopsy, he has not had any type of prostate surgery. He has no prior history of urinary tract infection. Review of Systems Narrative: No fevers or chills No vision change or dysphasia No diabetes or thyroid No sputum production or hemoptysis Tachycardia. No chest pain No nausea, vomiting, hepatitis, ulcers, jaundice No seizures, strokes or peripheral neuropathy No anemia No gout PFSH All Active Problems (Updated 11/20/22 @ 13:48 by Dipika Zendejas MD) Moderate mitral regurgitation (Acute) Acute HFrEF (heart failure with reduced ejection fraction) (Acute) Atrial flutter with rapid ventricular response (Acute) Urinary retention (Acute) Discharge planning issues (Acute) DVT prophylaxis (Acute) Chronic cough (Chronic) Aortic stenosis (Chronic) Atrial flutter (Acute) Congestive heart failure (Chronic) Tachycardia (Acute) Elevated brain natriuretic peptide (BNP) level (Acute) Shortness of breath (Acute) Arthritis of right shoulder region (Chronic) Family history of non-Hodgkin's lymphoma (Acute) Sister, mantle cell Impacted cerumen of both ears (Acute) Bilateral sensorineural hearing loss (Acute) Bilateral shoulder region arthritis (Acute) Psoriasis and similar disorder (Acute) Compound nevus of back (Acute) Osteopenia (Chronic 02/01/17) left hip T score (-0.9) 02/01/17; rx wt bearing exercise, adequate calcium, vit D Osteoarthritis (Chronic 06/28/15) gary both hands, 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 and T score Normal for LS spine (+2.1) Elevated prostate specific antigen (PSA) (Chronic 07/19/12) Chronic airway obstruction (Chronic 08/01/12) h/o pipe smoker; FEV1 2.28 (79%pred, 59%FVC 07/2012) incr RV, nl DLCO; d/c smoking 2011; GOLD 2 Moderate. FEV1 2.2 (2017, stable) Medical History Degenerative joint disease, shoulder, left Pat I think he will eventually need a total shoulder replacement. I explained to him that this is not a procedure that I do and I would recommend Dr. Choi at [facility] if he decides to have the surgery I also explained to him that use of injections specifically Depo-Medrol can be very helpful and can last for many months. I also explained that Visco supplementation has not been effective in the shoulder. He has a characteristic area of osteophyte formation inferomedially. This often has the appearance of wax dripping from the edge of a candle. He has no joint space on the AP and axillary views. There is no narrowing between the superior portion of the humeral head and the acromion to suggest rotator cuff tear arthropathy. For now he is content to continue with his exercise he will contact the office if he wants to try injection of corticosteroid into his left shoulder perhaps his right if that becomes more symptomatic Surgical History Prostate Biopsy (10/17/11) [address] Johnston, [facility] 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 MORROW Family History Mother , breast ca at age 43. Personal history of malignant neoplasm of Breast CA [address] Father , suicide at age 49. Suicide depression, suicide at 49 Sister Cancer Indy Royal Mantle Cell Non-Hodgkin Lymphoma, diagnosed 2020, in remission Lung cancer Brother Age: 74 Diabetes Social History Smoking/Tobacco Use Status: Former Tobacco Use tobacco type: pipe Quit Date: 11/07/19 Smoking risk assessment performed?: Yes Alcohol Intake: never Drug use: Never Substance use type: does not use Household members: none Education Level: college Current gender identity: male Duration: 15-30 minutes/day Frequency: 3-4 times per week Seatbelt use: always Do you feel safe at home: Yes Do you feel safe in your relationship?: Yes Exam Narrative Exam Narrative: He is a pleasant woman seen sitting at the bedside His vital signs are documented elsewhere His abdomen is soft. His bladder is not distended. He is awake and alert Results Last Vital Signs Temp 37.1 C 11/20/22 12:00 Pulse 134 H 11/20/22 10:01 Resp 17 11/20/22 12:00 BP 128/87 11/20/22 12:00 Pulse Ox 95 11/20/22 05:52 Labs 11/19/22 05:39 11/20/22 05:20 Labs: Laboratory Results - last 24 hr 11/20/22 05:20 Sodium 142 Potassium 3.9 Chloride 107 Carbon Dioxide 26.6 Anion Gap 8.4 BUN 35 H Creatinine 1.0 Est GFR (CKD-EPI 2020) 77.52 Glucose 99 Calcium 9.0 Magnesium 1.8
--- NOTE | 2022-11-20 13:45 | W.PM.DS.N ---
Date of service: 11/20/22 Time of Service: 13:45 DS: Diagnosis Discharge Diagnosis (1) Atrial flutter with rapid ventricular response: Status: Acute (2) Acute HFrEF (heart failure with reduced ejection fraction): Status: Acute (3) Aortic stenosis: Status: Chronic (4) Moderate mitral regurgitation: Status: Acute (5) Urinary retention: Status: Acute (6) Chronic airway obstruction: Status: Chronic (7) Hypokalemia: Status: Resolved (8) Chronic cough: Status: Chronic (9) Arthritis of right shoulder region: Status: Chronic Discharge Plan Disposition Patient Disposition: Transfer-Acute Inpatient Care Specific Acute Inpt Facility: [facility] Condition: Fair Discharge Details Reason For Visit: Acute Congestive Heart Failure Admit Date/Time: 11/17/22 13:35 Admit Provider: Nathan Aranda Attending Provider: Nathan Aranda Primary Care Provider: Shayne Portillo [facility] Course Hospital Course: Mr Gunderson is a 77 year old male with PMHx of non-oxygen dependent COPD, hyperlipidemia, OA, chronic cough, who was admitted to [facility] ICU on 11/17/22 in acute CHF due to a new diagnosis of atrial flutter with rapid ventricular response with HR in 140s, having presented to his PCP for a preop evaluation for R shoulder replacement and found to be tachycardic and wheezing. The symptoms had been going on for 3-4 weeks. CTA of the chest was negative. The patient was treated with IV labetalol in the ED with mild response, so he was started on cardizem drip. Given his CHADSVASC score of 3, he was started on therapeutic lovenox for anticoagulation. He was diuresed for his CHF, with diuretics being stopped once the patient became euvolemic.. Transthoracic echo revealed LVEF of 25-30%, moderate to severe aortic stenosis, moderate mitral regurgitation (while tachycardic to 120s-140s). The patient was transitioned to metoprolol off of the cardizem drip due to his low EF, having to quickly up-titrate the dose of lopressor 75 mg PO Q6hrs and still remaining tachycardic (but normotensive). Digoxin was then added, with the patient still remaining tachycardic to high 140s. At that point, amiodarone IV was added, but discontinued once cardiology (Dr Sharif) recommended KYLE prior to cardioversion, which would require transfer to a tertiary care facility, as we do not have KYLE capabilty at our facility. The patient was also felt to benefit from a cardiac cath, also unavailable at our facility. The case was discussed with [facility] cardiology, and the patient was accepted in transfer by Dr Glasgow of cardiology service pending bed availability, expected later today. Additionally, on this admission, the patient was found to have urinary retention for which he required jackson catheter placement, increase of home flomax to 0.8 mg, and initiation of finasteride. He passed a voiding trial. He is being referred to urology as outpatient. Total Critical Care time taking care of patient, coordination of transfer, as well as completion of his transfer summary on day of transfer took 60 minutes. Please, look for MAR for list of the patient's inpatient medications. The list below reflects his outpatient prescriptions. Home Meds and New Rx's Prescriptions: No Action [id number] C-Mn 1 EACH tablet 2 ea PO DAILY Fish Oil Extra Strength 1 EACH capsule 2 ea PO DAILY cholecalciferol (vitamin D3) 2,000 UNIT tablet 2,000 unit PO DAILY garlic 1,000 MG capsule 1,000 mg PO DAILY tamsulosin 0.4 mg capsule 0.4 mg PO DAILY Qty: 90 3RF Hold Instructions: Resume on 04/20/22. Rx Instructions: for nocturia etodolac 500 mg tablet 500 mg PO BID Qty: 180 3RF Rx Instructions: as needed for arthritis atorvastatin 10 mg tablet 10 mg PO DAILY Qty: 90 3RF Spiriva with HandiHaler 18 mcg capsule, w/inhalation device 1 cap Inhalation DAILY Qty: 3 3RF Rx Instructions: FOR COPD/EMPHYSEMA hydrocortisone 2.5 % cream 1 applic topical BID PRN (Reason: skin irritation) Qty: 30 0RF levalbuterol tartrate [Xopenex HFA] 45 mcg/actuation HFA aerosol inhaler 2 puff Inhalation Q4H PRN Qty: 1 11RF Rx Instructions: NEEDED TO PREVENT WHEEZES/SHORTNESS OF BREATH ipratropium-albuterol 0.5 mg-3 mg(2.5 mg base)/3 mL solution for nebulization See Rx Instructions .ROUTE .COMPLEX Qty: 180 3RF Dose Instruction: INHALE THE CONTENTS OF ONE VIAL VIA NEBULIZER EVERY 6 HOURS NEEDED FOR FOR SHORTNESS OF BREATH OR WHEEZING Rx Instructions: INHALE THE CONTENTS OF ONE VIAL VIA NEBULIZER EVERY 6 HOURS NEEDED FOR FOR SHORTNESS OF BREATH OR WHEEZING magnesium 500 mg Tablet 500 mg PO DAILY Discharge Instructions Instructions: Finasteride (By mouth), Heart Failure (DC), Atrial Flutter (DC), Urinary Retention in Men (ED), Cardioversion (DC), Transesophageal Echocardiogram (DC) Referrals: Waylon Scott MD [ [facility] STAFF PHYSICIAN] - Cristal Sharif MD [ [facility] STAFF PHYSICIAN] - Shayne Portillo DO [Primary Care Provider] - Activity:: Activity as Tolerated Equipment/Supplies:: No Equipment Needed Diet:: As Tolerated Discharge Orders Discharge Orders: Discharge Order (Routine); Ordered 11/20/22 Ordered By: Dipika Zendejas DS: Summary Time Spent with Patient providing and/or coordinating discharge services: Greater than 30 minutes Status at Discharge Functional status at discharge: independent ambulation Overall status at discharge: patient is progressing back to baseline Mental Status: mental status grossly normal Speech and Movement: speech and movement normal Mood: congruent mood Affect: normal affect Exam Narrative Exam Narrative: General: Pleasant male who is sitting up in a chair, A&Ox3, on RA, no dyspnea/tachypnea/cyanosis HEENT: EOMI, MMM Heart: tachycardic, seemingly regular rhythm Lungs: slightly coarse breath sounds at B bases Abdomen: soft, nontender, nondistended Extremities: trace edema at ankles. Psych Mental Status: mental status grossly normal Speech and Movement: speech and movement normal Mood: congruent mood Affect: normal affect DS: Data Vitals/I&O Vitals and I&O: Vital Signs Temperature 37.1 C 11/20/22 12:00 Temperature Source Temporal Artery Scan 11/20/22 12:00 Pulse 134 H 11/20/22 10:01 Pulse 133 H 11/20/22 12:00 Respiratory Rate 17 11/20/22 12:00 Respiratory Effort Non-Labored 11/20/22 12:00 Respiratory Depth Normal 11/20/22 12:00 Respiratory Pattern Normal 11/20/22 12:00 Blood Pressure 128/87 11/20/22 12:00 Blood Pressure Mean 97 11/20/22 12:00 Blood Pressure Position Supine 11/20/22 12:00 Pulse Oximetry 95 11/20/22 05:52 Oxygen Delivery Method Room Air 11/20/22 12:00 Oxygen Flow Rate 0 11/20/22 12:00 Pain Level 1 11/20/22 12:00 Comment RN notified 11/17/22 19:20 Intake & Output 11/19/22 11/20/22 11/20/22 23:59 11:59 23:59 Intake Total 875.556 / 1215.556 634.444 / 934.444 300 / 934.444 Output Total 725 / 1200 1300 / 1525 225 / 1525 Balance 150.556 / 15.556 -665.556 / -590.556 75 / -590.556 Intake: IV 395.556 / 435.556 234.444 / 284.444 50 / 284.444 Oral 480 / 780 400 / 650 250 / 650 Output: Urine 725 / 1200 1300 / 1525 225 / 1525 Other: Urine Color Yellow Light Yuly Yellow Light Yuly Urine Appearance Clear Clear Clear Urine Odor None None None Comment voided in urinal, PRV 145 urine color clearing urine color clearing Voiding Methods Urinal Urinal Urinal Incontinent Data Completed and Pending Completed studies during hospitalization [Text1]: CT chest/abdomen/pelvis: No acute abnormality in the chest, abdomen or pelvis..? Enlarged prostate causing bladder outlet obstruction. Transthroacic echo 11/17/2022: Severe global hypokinesis. LVEF is estimated visually at 25-30%. Moderate to severe by direct 2D assessment. Doppler interrogations of the aortic valve were inadequate. There is moderate mitral regurgitation. Patient was tachycardic (HR 120-140s) throughout the exam. There is no prior echocardiogram for comparison. Labs on day of discharge: Labs from last 24 hours 11/20/22 05:20 Sodium 142 Potassium 3.9 Chloride 107 Carbon Dioxide 26.6 Anion Gap 8.4 BUN 35 H Creatinine 1.0 Est GFR (CKD-EPI 2020) 77.52 Glucose 99 Calcium 9.0 Magnesium 1.8 Preliminary micro results at discharge 11/18/22 13:14 Sputum Culture - Preliminary Sputum Normal Albertina PFSH All Active Problems (Updated 11/20/22 @ 13:48 by Dipika Zendejas MD) Moderate mitral regurgitation (Acute) Acute HFrEF (heart failure with reduced ejection fraction) (Acute) Atrial flutter with rapid ventricular response (Acute) Urinary retention (Acute) Discharge planning issues (Acute) DVT prophylaxis (Acute) Chronic cough (Chronic) Aortic stenosis (Chronic) Atrial flutter (Acute) Congestive heart failure (Chronic) Tachycardia (Acute) Elevated brain natriuretic peptide (BNP) level (Acute) Shortness of breath (Acute) Arthritis of right shoulder region (Chronic) Family history of non-Hodgkin's lymphoma (Acute) Sister, mantle cell Impacted cerumen of both ears (Acute) Bilateral sensorineural hearing loss (Acute) Bilateral shoulder region arthritis (Acute) Psoriasis and similar disorder (Acute) Compound nevus of back (Acute) Osteopenia (Chronic 02/01/17) left hip T score (-0.9) 02/01/17; rx wt bearing exercise, adequate calcium, vit D Osteoarthritis (Chronic 06/28/15) gary both hands, 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 and T score Normal for LS spine (+2.1) Elevated prostate specific antigen (PSA) (Chronic 07/19/12) Chronic airway obstruction (Chronic 08/01/12) h/o pipe smoker; FEV1 2.28 (79%pred, 59%FVC 07/2012) incr RV, nl DLCO; d/c smoking 2011; GOLD 2 Moderate. FEV1 2.2 (2017, stable) Medical History Degenerative joint disease, shoulder, left Pat I think he will eventually need a total shoulder replacement. I explained to him that this is not a procedure that I do and I would recommend Dr. Choi at [facility] if he decides to have the surgery I also explained to him that use of injections specifically Depo-Medrol can be very helpful and can last for many months. I also explained that Visco supplementation has not been effective in the shoulder. He has a characteristic area of osteophyte formation inferomedially. This often has the appearance of wax dripping from the edge of a candle. He has no joint space on the AP and axillary views. There is no narrowing between the superior portion of the humeral head and the acromion to suggest rotator cuff tear arthropathy. For now he is content to continue with his exercise he will contact the office if he wants to try injection of corticosteroid into his left shoulder perhaps his right if that becomes more symptomatic Surgical History Prostate Biopsy (10/17/11) [address] Johnston, [facility] 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 MORROW Family History Mother , breast ca at age 43. Personal history of malignant neoplasm of Breast CA st 43 Father , suicide at age 49. Suicide depression, suicide at 49 Sister Cancer Indy Royal Mantle Cell Non-Hodgkin Lymphoma, diagnosed 2020, in remission Lung cancer Brother Age: 74 Diabetes Social History Smoking/Tobacco Use Status: Former Tobacco Use tobacco type: pipe Quit Date: 11/07/19 Smoking risk assessment performed?: Yes Alcohol Intake: never Drug use: Never Substance use type: does not use Household members: none Education Level: college Current gender identity: male Duration: 15-30 minutes/day Frequency: 3-4 times per week Seatbelt use: always Do you feel safe at home: Yes Do you feel safe in your relationship?: Yes Time Spent with Patient Time Spent with Patient: 45-69 minutes Time was spent: preparing to see the patient(eg.review tests), obtaining and/or reviewing separately otained hiistory, ordering medications,tests, procedures, referring, communicating with other health assurance services manager health care, indepentently interpreting results, counseling the patient and care coordination
--- NOTE | 2022-11-20 16:14 | CMDISCH_ITS ---
- If Service Date Differs Date of service: 11/20/22 Time of Service: 16:14 LACE Index Scoring Tool - Questions: Length of Stay (in days): 3 Acuity (Admit via E.D.?): Yes Comorbidities: Congestive Heart Failure E.D. Visits: 2 - Answers: Total Score: 10 Risk of Readmission: High Risk Care Management Discharge Reason for Hospitalization: Acute Congestive Heart Failure. Discharge Plan: Rodney transferred to [facility] today to their Cardiology department for possible KYLE and/or cardiac cath, per report. He was transported via [facility]. He will follow up with his PCP and discharge plan of care. Patient/Family Education Needs: Review plan for transfer to tertiary facility, discussion of self care needs including ask me three. Services Needed at Discharge: Transportation ([facility] )
== END 2022-11-20 15:42 | disposition short-term general hospital (02) | DRG 308 ==
LOC: ER 15:15 → ICU 16:12
PROVIDERS: Internal Medicine; Admitting Provider Family Medicine; Emergency Provider Physician Assistant; PCP Family Medicine; Visit Provider Family Medicine
DX: I48.92 Unspecified atrial flutter (principal); I50.23 Acute on chronic systolic (congestive) heart failure; I08.0 Rheumatic disorders of both mitral and aortic valves; M19.011 Primary osteoarthritis, right shoulder; N40.1 Benign prostatic hyperplasia with lower urinary tract symptoms; R33.9 Retention of urine, unspecified; M19.012 Primary osteoarthritis, left shoulder; J44.9 Chronic obstructive pulmonary disease, unspecified; M85.80 Other specified disorders of bone density and structure, unspecified site; L40.9 Psoriasis, unspecified; E87.6 Hypokalemia; R05.3 Chronic cough; I45.10 Unspecified right bundle-branch block; H90.3 Sensorineural hearing loss, bilateral; Z87.891 Personal history of nicotine dependence
CPT/HCPCS: 36415; 71275; 74177; 80048; 80053; 87637; 93005; 94640; 96361; 96374; 96375; 99222; 99291; J1650; 81003; 81015; 83735; 83880; 84443; 84484; 85025; 85379; 85610; 85730; 87070; 87205; 93010; 93306; 94664; 94667; 94668; 99223; J1160; J1940; J2930; J3490; J7614

== ENCOUNTER → 2022-11-20 07:35 | Outpatient (BNVA) | payer MEDICARE, SELFPAY | PROVIDERS: PCP Family Medicine; Referring Provider Family Medicine; Visit Provider Urology ==

== ENCOUNTER → 2022-11-20 09:25 | Outpatient (BNVA) | payer MEDICARE, SELFPAY | PROVIDERS: PCP Family Medicine; Referring Provider Family Medicine; Visit Provider Internal Medicine Cardiovascular Disease ==

== ENCOUNTER 2022-12-01 02:36 | Outpatient (CLI) | payer MEDICARE, SELFPAY ==
[2022-12-01 14:30] LABS: Anion Gap 9.7 mmol/L (3-11); BUN 26 mg/dL (7-18); CO2 26.3 mmol/L (21.0-32.0); Calcium 9.6 mg/dL (8.5-10.1); Chloride 102 mmol/L (98-107); Estimated GFR 77.52 (mL/min/1.73m2); Glucose 113 mg/dL (74-106); Potassium 4.4 mmol/L (3.5-5.1); Sodium 138 mmol/L (136-145)
== END 2022-12-01 02:37 | disposition home or self-care (01) ==
PROVIDERS: PCP Family Medicine; Visit Provider Nurse Practitioner
DX: I48.3 Typical atrial flutter (principal); I50.23 Acute on chronic systolic (congestive) heart failure
CPT/HCPCS: 36415; 80048

== ENCOUNTER 2022-12-18 01:14 | Outpatient (CLI) | payer MEDICARE, SELFPAY ==
--- NOTE | 2022-12-18 15:00 | DI.US_ITS ---
APPROVED REPORT EXAM: Comprehensive 2D, Doppler, and color-flow Echocardiogram Patient Location: Out-Patient [employer] Specialist: Ivana Almanza RDCS (AE) Indications: Limited follow up function, h/o Atrial flutter Other Information Study Quality: Adequate Conclusion Left ventricular systolic function appears within the range of normal, EF 55%, no wall motion abnorma lities Aortic valve is sclerotic. Interrogation of the valve was not performed on this study Wall motion Left Ventricle The left ventricle is normal size. The overall left ventricular systolic function appears normal. The re is normal left ventricular wall thickness. LVEF is 55%. Right Ventricle The right ventricle is normal size. The right ventricular systolic function is normal. Great Vessels IVC is normal in size and collapses >50% with inspiration. Pericardium There is no pericardial effusion. 2D Dimensions IVSD d PLAX 1.01 cm M: 0.6-1.2 LV Vol A2C d MOD 92.0 mL LVPW d PLAX 1.01 cm M: 0.6 - 1.2 LV Vol A4C d MOD 74.2 mL LVID d PLAX 5.04 cm M: 4.2 - 5.8 LA vol/ BSA A2C s A-L 30.6 mL/m2 LVDs 3.50 cm M: 2.5 - 4.0 LA vol/ BSA A4C s A-L 19.7 mL/m2 LV EF Teichholz 56.6 % LA Vol/ BSA Biplane s A-L 25.1 mL/m2 LVEF (Richards's) 53.07 % M: 52 - 72 LA Area A4C s MOD 14.23 cm2 LV Volume 65.64 mL M: 62 - 150 LA Area A2C s MOD 17.34 cm2 LV Volume Index 37.29 mL/m2 M: 34 - 74 LV EF A4C MOD 55.1 % LV Vol Biplane MOD 83.6 mL LV EF A2C MOD 50.6 % FS 29.70 % LV EF Biplane MOD 53.1 % SV 44.39 mL SV Index 25.29 mL/m2
== END 2022-12-18 01:34 ==
PROVIDERS: PCP Family Medicine; Visit Provider Nurse Practitioner Family
DX: I48.92 Unspecified atrial flutter (principal)
CPT/HCPCS: 93306; 93308

== ENCOUNTER 2022-12-26 07:55 | Outpatient (CLI) | payer MEDICARE, SELFPAY ==
--- NOTE | 2022-12-26 07:45 | RT.EKG_ITS ---
APPROVED REPORT Exam: Resting ECG Reason for Exam: aflutter Patient Location: O HR:79 bpm ECG Measurements Heart Rate 79 AXIS DE 156 P 43 QRSd 163 QRS -116 QT 405 T 9 QTc 465 Conclusion Sinus rhythm...normal P axis, V-rate 50- 99 RBBB and LAFB...QRSd >120mS, axis(-40,240)
== END 2022-12-26 07:56 | disposition home or self-care (01) ==
LOC: DI.CARD 07:56
PROVIDERS: PCP Family Medicine; Visit Provider Internal Medicine Cardiovascular Disease
DX: I48.3 Typical atrial flutter; I45.10 Unspecified right bundle-branch block
CPT/HCPCS: 93010

== ENCOUNTER → 2022-12-26 13:31 | Outpatient (BNVA) | payer MEDICARE, SELFPAY | PROVIDERS: PCP Family Medicine; Referring Provider Family Medicine; Visit Provider Internal Medicine Cardiovascular Disease | DX: I48.92 Unspecified atrial flutter (principal); Z79.01 Long term (current) use of anticoagulants; I35.0 Nonrheumatic aortic (valve) stenosis; I42.9 Cardiomyopathy, unspecified; I25.10 Atherosclerotic heart disease of native coronary artery without angina pectoris | CPT/HCPCS: 93005; 99203; 99214 ==

== ENCOUNTER 2022-12-28 02:05 | Outpatient (CLI) | payer MEDICARE, SELFPAY ==
--- NOTE | 2022-12-28 15:34 | DI.US_ITS ---
APPROVED REPORT EXAM: Comprehensive 2D, Doppler, and color-flow Echocardiogram Other Information Study Quality: Adequate Conclusion Normal left ventricular wall thickness and chamber size. Estimated ejection fraction is 55 to 60%. Wall motion is normal Normal right ventricular size and systolic function Left atrium is normal in size. Right atrium is mildly dilated Aortic valve is sclerotic and trileaflet. There is very mild aortic stenosis. Peak gradient is 19, mean 12 mmHg. Calculated aortic valve area is 2 cm??. There is no aortic regurgitation Mild mitral annular calcification. Trace to mild mitral regurgitation Normal tricuspid valve with mild regurgitation. Estimated right ventricular systolic pressure is 32 mmHg Mildly dilated ascending aorta Wall motion Left Ventricle The left ventricle is normal size. The left ventricular systolic function is normal. The left ventric ular ejection fraction is within the normal range. There is normal left ventricular wall thickness. T here is normal LV segmental wall motion. There is no ventricular septal defect visualized. LVEF is 57 %. Right Ventricle The right ventricle is normal size. The right ventricular systolic function is normal. The RVSP is 32 .2 mmHg. Atria The left atrium size is normal. Right atrium is mildly dilated. The interatrial septum is intact with no evidence for an atrial septal defect. Aortic Valve Aortic valve is calcified. Aortic valve is trileaflet. Mild aortic stenosis. Peak gradient is 19, erwin n 12 mmHg Calculated aortic valve area is 2 cm?? No aortic regurgitation is present. Mitral Valve Mild mitral annular calcification. No evidence of mitral valve stenosis. Trace to mild mitral regurgi tation. Tricuspid Valve The tricuspid valve is normal in structure. There is no tricuspid valve stenosis. Mild tricuspid reg urgitation. Pulmonic Valve The pulmonary valve is normal in structure. There is no pulmonic valvular stenosis. There is no pulmo chantell valvular regurgitation. Great Vessels The aortic root is normal in size. The ascending aorta is mildly dilated.3.72 cm Aortic arch is not w ell visualized. IVC is normal in size and collapses >50% with inspiration. Pericardium There is no pericardial effusion. 2D Dimensions IVSD d PLAX 1.03 cm M: 0.6-1.2 LV Vol A2C d MOD 124.7 mL LVPW d PLAX 1.03 cm M: 0.6 - 1.2 LV Vol A4C d MOD 79.1 mL LVID d PLAX 4.95 cm M: 4.2 - 5.8 LA vol/ BSA A2C s A-L 37.4 mL/m2 LVDs 3.40 cm M: 2.5 - 4.0 LA vol/ BSA A4C s A-L 19.2 mL/m2 Ao Root d 3.03 cm M: 3.1 - 3.7 LA Vol/ BSA Biplane s A-L 27.3 mL/m2 RA Area A4C 14.82 cm2 LA Area A4C s MOD 14.05 cm2 RA Vol/ BSA A4C s A-L 22.5 mL/m2 LA Area A2C s MOD 19.96 cm2 Ao Asc Diam d 3.72 cm M: 2.6 - 3.4 LV EF A4C MOD 56.3 % LV EF Teichholz 58.8 % LV EF A2C MOD 57.0 % LVEF (Richards's) 55.27 % M: 52 - 72 LV EF Biplane MOD 55.3 % LV Volume 79.24 mL M: 62 - 150 SV 55.91 mL LV Volume Index 44.76 mL/m2 M: 34 - 74 SV Index 31.68 mL/m2 LV Vol Biplane MOD 101.2 mL FS 31.20 % M-Mode TAPSE 2.35 cm (M/F) >1.7 LV Diastology MV E' medial 0.083 (>0.07 m/s) E/A Ratio 0.8 LV E/e MED 6.40 (<14) MV E Vmax 0.53 (0.4-1.3 m/s) MV E' lateral 0.091 (>0.1 m/s) MV A Vmax 0.70 (0.4-1.3 m/s) LV E/e LAT 5.85 (<14) MV E/A Ratio 0.73 MV E/E' medial 6.43 MV E/E' lateral 5.86 Aortic Valve LVOT Area 3.52 cm2 AoV Area Vmax 2.07 cm2 LVOT Vmax 1.29 m/s AoV Area/ BSA (Vmax) 1.18 cm2/m2 LVOT Mean Shreyas. 1.00 m/s RAVEN Mean Shreyas. 2.12 cm2 LVOT Peak Grad 6.7 mmHg RAVEN Mean Shreyas. Index 1.20 cm2/m2 LVOT Mean Grad 4.3 mmHg LVOT VTI 0.261 m LVOT Diam s 2.10 cm AoV Vmax 2.19 m/s Velocity Ratio 0.59 AoV Mean Shreyas. 1.66 m/s AoV Peak Grad 19.2 mmHg LVOT SV 92.01 mL AoV Mean Grad 12.0 mmHg AoV VTI 0.401 m AoV Area VTI 2.30 cm2 AoV Area/ BSA (VTI) 1.30 cm/m2 Mitral Valve MV DT 367 (160-240 msec) MV PHT 106 msec MV Area PHT 2.07 cm2 MV VTI 0.217 m MV Area VTI 4.24 (4.0-6.0 cm2) Pulmonary Valve PV Vmax 1.15 (0.5-1.5 m/s) RVOT Peak Gr. 1.89 mmHg PV Peak Grad 5.3 mmHg RVOT Mean Gr. 0.90 mmHg PV Mean Grad 2.4 mmHg RVOT VTI 0.114 m PV VTI 0.193 m RVOT Vmax 0.69 m/s Tricuspid Valve TR Peak Grad 29.1 mmHg TR Vmax 2.70 m/s RA Pressure 3.00 mmHg RVSP (TR) 32.2 mmHg
== END 2022-12-28 02:25 ==
LOC: DI 02:05
PROVIDERS: PCP Family Medicine; Visit Provider Internal Medicine Cardiovascular Disease
DX: I25.10 Atherosclerotic heart disease of native coronary artery without angina pectoris (principal); I35.0 Nonrheumatic aortic (valve) stenosis; R00.0 Tachycardia, unspecified; Z01.810 Encounter for preprocedural cardiovascular examination
CPT/HCPCS: 93306

== ENCOUNTER 2023-01-01 00:43 | Outpatient (CLI) | payer MEDICARE, SELFPAY ==
--- NOTE | 2023-01-01 07:30 | DI.NM_ITS ---
APPROVED REPORT Exam: Pharmacologic Patient Location: Out-Patient Room/Bed: Stress Nurse: Elenita Royal RN Ordering Provider:MARTÍNEZ MORALES, Contact Number: [phone] BMI: 25.62 Baseline Rhythm: Sinus Rhythm, RBBB Indications: CAD Medical History Medical History: Cardiomyopathy, ASCVD, atrial flutter, aortic stenosis, moderate mitral regurgitatio n, acute HFrEF, hypokalemia, CHF, tachycardia, SOB Cardiac Medications: Metoprolol succinate, losartan, atorvastatin, spironolactone, furosemide, apixab an Allergies: Latex Cardiac Risk Factors: HLD, CVD, COPD, family history Previous Cardiac Procedures: transesophageal cardioversion, cardiac ablation Pretest Chest Pain Characteristics: None Exercise History: Indeterminate Physical Disabilities: right arm Lung Sounds: Clear to auscultation Heart Sounds: Regular, distant Stress Test Details Test: Pharmacologic stress testing performed using 0.4 mg of regadenoson per 5 mL given IV over 10 s econds. Reason for pharmacologic stress test: physical limitation. Nuclear Acquisition: Rest Tc-99m/Stress Tc-99m 1 day Rest Isotope: Tc-99m Sestamibi. Dose: 10.0 Date: 01/01/2023 Injection Time: 1115 Stress Isotope: Tc-99m Sestamibi. Dose: 30.0 Date: 01/01/2023 Injection Time: 1320 HR Resting HR Supine: 68 bpm Max Heart Rate (APMHR): 143.339058 bpm Target HR (85% APMHR): 121.603320 bpm Max HR Achieved: 83 bpm % of APMHR: 58.04 Recovery HR: 73 bpm BP Resting BP Supine: 112/70 mmHg Max BP: 118/78 mmHg Recovery BP: 112/72 mmHg ECG Resting ECG: Sinus Rhythm, RBBB Ectopy: None Stress ECG: Sinus Rhythm, RBBB ST Change: No significant ST segment changes noted Arrhythmia: None Recovery ECG: Sinus Rhythm, RBBB Recovery ST Change: No significant ST segment changes noted Recovery Arrhythmia: None Clinical Stress Symptoms: Dyspnea, Headache Angina Score: None Rate Pressure Product: [id number] Stress ECG Conclusion 1. The resting electrocardiogram shows a right bundle branch block 2. Patient underwent testing using pharmacologic stress with regadenoson 3. Peak heart rate achieved was 58% of maximal for age 4. The electrocardiographic portion of the test was nondiagnostic due to inadequate heart rate 5. See MPI report Stress Test Summary STAGE HR BP SpO2 Symptoms NOTES Supine 68 112/70 95 1 min post Lexiscan injection 69 114/72 95 Moderate dyspnea 3 min post Lexiscan injection 77 118/76 97 ELLIOTT, dyspnea improving 6 min post Lexiscan injection 73 112/72 95 All symptoms resolved MPI Conclusion Myocardial perfusion is normal. There is no ischemia or evidence of prior infarction EF 55%, normal wall motion Radiologist Interpretation Radiologist Interpretation by: Rodney Samuels MD Interpretation Date/Time: 01/01/2023 17:10:33
[2023-01-01] MEDS: Regadenoson 0.4 MG/5 ML SYR IVP (13:52)
== END 2023-01-01 01:03 ==
LOC: DI 00:43
PROVIDERS: PCP Family Medicine; Visit Provider Internal Medicine Cardiovascular Disease
DX: I25.10 Atherosclerotic heart disease of native coronary artery without angina pectoris (principal); I35.0 Nonrheumatic aortic (valve) stenosis; R06.02 Shortness of breath; Z01.810 Encounter for preprocedural cardiovascular examination
CPT/HCPCS: 78452; 93016; 93018; 93017; J2785

== ENCOUNTER → 2023-01-25 10:38 | Outpatient (BNVA) | payer MEDICARE, SELFPAY | PROVIDERS: PCP Family Medicine; Referring Provider Family Medicine; Visit Provider Internal Medicine Cardiovascular Disease | DX: I48.3 Typical atrial flutter (principal); Z79.01 Long term (current) use of anticoagulants; I35.0 Nonrheumatic aortic (valve) stenosis; I25.10 Atherosclerotic heart disease of native coronary artery without angina pectoris | CPT/HCPCS: 99214 ==

== ENCOUNTER → 2023-02-06 08:44 | Outpatient (BNVA) | payer MEDICARE, SELFPAY | PROVIDERS: PCP Family Medicine; Referring Provider Family Medicine; Visit Provider Student in an Organized Health Care Education/Training Program | DX: M19.011 Primary osteoarthritis, right shoulder (principal) | CPT/HCPCS: 99214 ==

== ENCOUNTER 2023-02-15 06:13 | Day surgery (SDC) | payer MEDICARE, SELFPAY ==
[2023-02-15] VITALS (11 sets, daily range): BP systolic 89–116; BP diastolic 57–87; PULSE 47–82; RESP 11–24; TEMP 36.1–36.6; O2SAT 94–98; BMI 26.6
[2023-02-15] MEDS: Lactated Ringers 1,000 ML 30 ML IV (07:05)
--- NOTE | 2023-02-15 07:15 | ANES.PREOP_ITS ---
General Info Date of Service Date Performed: 02/15/23 Height: 5 ft 5 in Weight: 72.8 kg Body Mass Index (BMI): 26.6 Surgical Procedure: Operation Date: 02/15/23 08:10 Proposed Procedure Side Surgeon p Reverse Shoulder Total Arthroplasty, Bicep Tenodesis and any other indicated procedures Right Stone Bautista MD Meds Allergies and Home Medications Allergies Allergy/AdvReac Type Severity Reaction Status Date / Time Latex, Natural Rubber AdvReac Intermediate Skin Rash Verified 02/15/23 06:26 walnuts Allergy Intermediate watery Uncoded 02/15/23 06:26 eyes and some swelling in mouth Fruits that have been sprayed Allergy Unknown eyes will Uncoded 02/15/23 06:26 swell if he eats them Home Medication Medication Instructions Recorded cholecalciferol (vitamin D3) 50 2,000 unit PO DAILY 01/09/13 mcg (2,000 unit) tablet [id number] C-Mn 750 2 ea PO DAILY 01/09/13 mg-600 mg-55 mg-5 mg tablet garlic 1,000 mg capsule 1,000 mg PO DAILY 12/01/14 magnesium 500 mg tablet 500 mg PO DAILY 04/13/22 hydrocortisone 2.5 % topical cream 1 applic topical BID PRN skin 08/01/22 irritation #30 grams levalbuterol tartrate 45 2 puff inhalation Q4H PRN ##1 08/01/22 mcg/actuation aerosol inhaler (Xopenex HFA) ipratropium 0.5 mg-albuterol 3 mg See Rx Instructions .Route 08/22/22 (2.5 mg base)/3 mL nebulization .COMPLEX #180 mL soln finasteride 5 mg tablet 5 mg PO DAILY 11/28/22 furosemide 20 mg tablet 20 mg PO DAILY 11/28/22 losartan 25 mg tablet 25 mg PO HS 11/28/22 metoprolol succinate 100 mg 100 mg PO HS 11/28/22 tablet,extended release 24 hr spironolactone 25 mg tablet 12.5 mg PO DAILY 11/28/22 salmon oil 1,000 mg-omega-3 fatty 1 cap PO DAILY 12/15/22 acids 210 mg capsule tiotropium bromide 18 mcg capsule 1 cap inhalation DAILY 12/26/22 with inhalation device (Spiriva with HandiHaler) rosuvastatin 40 mg tablet 40 mg PO DAILY #90 tabs 01/12/23 apixaban 5 mg tablet (Eliquis) 5 mg PO BID 02/14/23 tamsulosin 0.4 mg capsule 0.4 mg PO HS 02/15/23 tiotropium bromide 2.5 2 inh inhalation QAM 02/15/23 mcg/actuation mist for inhalation (Spiriva Respimat) Current Visit Medications: Current Medications Generic Name Dose Route Start Last Admin Trade Name Freq PRN Reason Stop Dose Admin Ringer's Solution 1,000 mls @ 30 mls/hr 02/15/23 06:00 02/15/23 07:05 IV 03/16/23 23:59 30 mls/hr INFUSION RAUL Administration Cefazolin Sodium/Dextrose 2 gm in 50 mls @ 100 mls/hr 02/15/23 06:00 Ancef Duplex IVPB 02/15/23 16:00 PREOP RAUL Tranexamic Acid 1,000 mg/ 60 mls @ 360 mls/hr 02/15/23 06:00 Sodium Chloride IVPB 02/15/23 16:00 PREOP RAUL IV Miscellaneous Supplies 1 each 02/15/23 06:00 Iv Access IV 03/16/23 23:59 DIRECTED RAUL Sodium Chloride 0 ml 02/15/23 06:00 Normal Saline Flush 10 Ml Syr IV 03/16/23 23:59 PRN PRN Sodium Chloride 0 ml 02/15/23 06:00 Normal Saline 10 Ml Vial IJ 03/16/23 23:59 DIRECTED PRN Sterile Water 0 ml 02/15/23 06:00 Water,Injection,Sterile 10 Ml Vial IJ 03/16/23 23:59 DIRECTED PRN PFSH Active Problems Active Problems: Problem Status Onset Code 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 Bilirubin in urine 06/28/15 R82.2 Chronic airway obstruction 08/01/12 J44.9 Elevated prostate specific antigen (PSA) 07/19/12 R97.20 Loss of height 01/08/17 Nocturia more than twice per night 06/18/15 R35.1 Osteoarthritis 06/28/15 M19.90 Osteopenia 02/01/17 M85.80 Compound 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 Psoriasis and similar disorder L40.9 Bilateral shoulder region arthritis M19.011, M19.012 Bilateral sensorineural hearing loss H90.3 Impacted cerumen of both ears H61.23 Family history of non-Hodgkin's lymphoma Z80.7 Arthritis of right shoulder region M19.011 Tachycardia R00.0 Elevated brain natriuretic peptide (BNP) level R79.89 Shortness of breath R06.02 Congestive heart failure I50.9 Atrial flutter I48.92 Aortic stenosis I35.0 Chronic cough R05.3 Urinary retention R33.9 Hypokalemia E87.6 Atrial flutter with rapid ventricular response I48.92 Acute HFrEF (heart failure with reduced ejection fraction) I50.21 Moderate mitral regurgitation I34.0 Acute on chronic systolic (congestive) heart failure I50.23 Aortic stenosis, moderate I35.0 ASCVD (arteriosclerotic cardiovascular disease) I25.10 Preoperative cardiovascular examination Z01.810 Cardiomyopathy I42.9 Medical History Medical History (Updated 02/15/23 @ 07:43 by Dora Barron CRNA) Degenerative joint disease, shoulder, left Stutter Surgical History Surgical History Hx of cataract removal with insertion of prosthetic lens Prostate Biopsy (10/17/11) [address] Johnston, [facility] 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 MORROW Tobacco Smoking/Tobacco Use Status: Former Tobacco Use Alcohol Alcohol Intake: never Substance Use Substance use: Never Substance use type: does not use Vital Signs and Lab Results Vital Signs Most Recent Vital Signs in EMR: Most Recent Vital Signs Temp Pulse Resp BP Pulse Ox 36.5 C 68 15 116/87 95 02/15/23 06:19 02/15/23 06:19 02/15/23 06:19 02/15/23 06:19 02/15/23 06:19 Lab Results Blood Type / Crossmatch: No Data to Display Complete Blood Count: No Data to Display Complete Metabolic Panel: No Data to Display Liver Function Panel: No Data to Display Coagulation Panel: No Data to Display Cardiac Panel: No Data to Display Arterial Blood Gas: No Data to Display Venous Blood Gas: No Data to Display Pancreas Panel: No Data to Display Thyroid Panel: No Data to Display Infectious Disease: No Data to Display Blood Cultures: No Data to Display Toxicology Panel: No Data to Display Imaging and Studies Imaging and Studies Study information below may be from another EMR and interpreted by another provider. Please see original notes in EMR for more complete details. EKG Summary: PATIENT NAME: Rodney Gunderson #: [id number] ORDERING PROVIDER: Cristal Sharif M.D. PRIMARY CARE PROVIDER: JOHN ZENG DO DATE/TIME OF SERVICE: 12/26/22 1244 : 1945[facility] Exam: Resting ECG Reason for Exam: aflutter Patient Location: O HR:79 bpm ECG Measurements Heart Rate 79 AXIS [place] 156 P 43 QRSd 163 QRS -116 QT 405 T9 QTc 465 Conclusion Sinus rhythm...normal P axis, V-rate 50- 99 RBBB and LAFB...QRSd >120mS, axis(-40,240) Stress Test Summary: Stress ECG Conclusion 1. The resting electrocardiogram shows a right bundle branch block 2. Patient underwent testing using pharmacologic stress with regadenoson 3. Peak heart rate achieved was 58% of maximal for age 4. The electrocardiographic portion of the test was nondiagnostic due to inadequate heart rate 5. See MPI report Stress Test Summary [id number] 1 min post Lexiscan [id number] dyspnea 3 min post Lexiscan [id number], dyspnea improving 6 min post Lexiscan [id number] symptoms resolved MPI Conclusion Myocardial perfusion is normal. There is no ischemia or evidence of prior infarction EF 55%, normal wall motion 01/01/23 Echocardiogram Summary: Conclusion Normal left ventricular wall thickness and chamber size. Estimated ejection fraction is 55 to 60%. Wall motion is normal Normal right ventricular size and systolic function Left atrium is normal in size. Right atrium is mildly dilated Aortic valve is sclerotic and trileaflet. There is very mild aortic stenosis. Peak gradient is 19, mean 12 mmHg. Calculated aortic valve area is 2 cm??. There is no aortic regurgitation Mild mitral annular calcification. Trace to mild mitral regurgitation Normal tricuspid valve with mild regurgitation. Estimated right ventricular systolic pressure is 32 mmHg Mildly dilated ascending aorta 12/28/22 Anesthesia Assessment and Plan Anesthesia History Personal History: No History of Anesthesia Complications Family History: No Family History of Anesthesia Complications Exercise Tolerance Exercise Tolerance: Metabolic Equivalents>4 Pertinent Negatives Pertinent Negatives: No Symptoms of GERD, No Major Cardiovascular Symptoms or Complaints, No Major Pulmonary Symptoms or Complaints (COPD) and No History of CVA/TIA Cardiac & Pulmonary Exam Cardiac Exam: Normal S1/S2 Heart Sounds and Heart Murmur Present Pulmonary Exam: Clear Bilateral Breath Sounds Implantable Cardiac Device Does patient have a Pacemaker or an ICD?: No Airway Exam Known Difficult Airway: No Mallampati Class: 2 Mouth Opening: Normal (> 3cm) Thyromental Distance: Greater than 3 cm Neck Range of Motion: Full ROM Neck Circumference: Normal Teeth Condition: Normal Dentition ASA Classification ASA Score: ASA 2 Emergency Case?: No NPO Status NPO Status: NPO Clears >2 hours, Solids >8 hours Anesthesia Plan Resuscitation Status: Full Code Anesthesia Technique: General Anesthesia Airway Planned: Endotracheal Tube Pain Management: Surgeon and patient request nerve block Monitors Used: Standard Monitors
--- NOTE | 2023-02-15 08:30 | ANES.NERVE_ITS ---
Nerve Block Single Injection Procedure Date and Time Date Performed: 02/15/23 Procedure Start: 08:10 Location Where Procedure Performed Procedure Location: Day Surgery Unit Reason Performed: Postoperative Analgesia Requesting Provider: Stone Bautista Timeout Performed Timeout Performed: Yes Monitoring Used ECG, Blood Pressure, SpO2 and See EMR for corresponding vital signs Sterility Sterility: Hand Hygiene, Surgical Cap, Surgical Mask, Sterile Gloves and Chlorhexidine Sedation Given During Procedure Sedation Given (Indicate Dose Given): No Sedation given Patient Mental Status Patient Mental Status: Awake Nerve Block 1st Nerve Block: Laterality: Right Block Type: Interscalene Ultrasound Image Saved?: Yes Needle / Catheter Used: 80mm SonoPlex II Local Anesthetic Bolus (Indicate Dose Given): Lidocaine used for local infiltration of skin, Injected in 3-5ml increments after negative blood aspiration, Bupivacaine 0.5% Dose:: 10 ml and Exparel Dose:: 10 ml Additives (Indicate Dose Given): None Ultrasound: Sterile probe cover and gel used Nerve Stimulator: Not Used Paresthesia: None Procedure Tolerated: No Complications and Patient tolerated well Procedure Outcome: Successful Procedure Comment: Not typical anatomy, confirmed nerve bundle location with Ryanne Bonilla LIVING MANAGER Performed By: Dora Barron
[2023-02-15] MEDS: ceFAZolin 2 GM/50 ML BAG IVPB (08:45)
--- NOTE | 2023-02-15 13:23 | DI.RAD_ITS ---
Exam(s) XR SHOULDER RT COMPLETE 2+V EXAM: XR SHOULDER RT COMPLETE 2+V CLINICAL HISTORY: shoulder arthritis. TECHNIQUE: 2D digital imaging was performed of the right shoulder. Two images were obtained. AP an d Y views were obtained. COMPARISON: CR XR SHOULDER RT COMPLETE 2+V from 08/15/2022 CR XR CHEST 2V PA LATERAL from 10/25/2022 FINDINGS: The patient is now status post right total reverse shoulder replacement. The orthopedic hardware aracely ears in good position. The bones are intact and normally mineralized. Postsurgical changes are seen in the soft tissues. IMPRESSION: Status post right total reverse shoulder replacement. DATA REPOSITORY: RADIATION DOSE DELIVERED:
--- NOTE | 2023-02-15 13:40 | W.ANESPOSTOP ---
Postoperative Evaluation Date, Time and Location Date Performed: 02/15/23 Time Performed: 13:41 Patient Location: Day Surgery Unit Vital Signs Most Recent Imported Vital Signs: Most Recent Vital Signs Temp Pulse Resp BP Pulse Ox 36.6 C 64 24 112/69 96 02/15/23 13:30 02/15/23 13:30 02/15/23 13:30 02/15/23 13:30 02/15/23 13:30 Pain Score Most Recent Pain Score: Most Recent Pain Score Pain Level 0 02/15/23 13:30 Assessment Mental Status: Awake (Alert & Oriented to Patient Baseline) Airway and Respiratory Function: Patent airway with normal (patient baseline) respiratory exam (minor expiratory wheeze) Cardiovascular Function: Hemodynamically Stable Hydration Status: Adequately Hydrated Nausea & Vomiting: No Nausea or Vomiting Pain: Pt. Denies Any Pain Peripheral Nerve Block: Regional nerve block not resolved at time of post operative discharge
[2023-02-15] MEDS: ceFAZolin 1 GM/50 ML BAG IVPB (14:32)
--- NOTE | 2023-02-15 14:34 | W.PM.OP ---
Date of service: 02/15/23 Time of Service: 15:00 Operative Note Operative Note DATE OF PROCEDURE: 02/15/23 PRE-OP DIAGNOSIS: Right: 1. End-stage glenohumeral arthritis 2. Long head of the biceps tendinopathy POST-OP DIAGNOSIS: same PROCEDURE: Right: 1. Reverse total shoulder arthroplasty, CPT # 85588 2. Open biceps tenodesis, CPT # 05030 The elementary assistant principal was medically required as this procedure involves retraction, protection of neurovascular structures, and manipulation of multiple instruments and implants at the same time, which cannot be done without a skilled elementary assistant principal. SURGEON: Stone Bautista RUG CLEANER: Antoinette Quan ANESTHESIA TYPE: Local By Surgeon, General LMA/ETT and Primary Nerve Block Refer to Anesthesia Record ESTIMATED BLOOD LOSS: 50 COMPLICATIONS: None Patient was transported to: PACU Patient's condition: stable Implants: [employer] modular glenoid system baseplate 24 mm, 20 degree full augment [employer] modular glenoid system central post 25 mm [employer] modular glenoid system peripheral locking screws 28 mm inferior, 24 mm superior, 16 mm posterior, 24 mm anterior [employer] modular glenoid system glenosphere 42 +4 mm lateralized [employer] humeral stem 135 degrees size 9 [employer] suture cup size 39 neutral [employer] spacer size 39 +6mm [employer] humeral insert size 39 +3mm constrained combo 42 Indications: Please see complete medical record for details. Findings: Moderate long head biceps tenosynovitis, relatively intact subscapularis and superior rotator cuff, complete glenohumeral cartilage loss and significant deformity. Procedure Description: In the operating room, general anesthesia was induced. The patient was positioned beachchair on the operating room table. All bony prominences were well-padded. Preoperative antibiotics were administered. The shoulder was prepped and draped in the usual sterile fashion for shoulder arthroplasty. The correct patient, procedure, and side of the procedure were all verified prior to incision. The deltopectoral approach was preinjected with local anesthetic containing epinephrine and taken to the anterior shoulder. Care was taken to bluntly dissect the interval between the deltoid and pectoralis major muscles and to identify the cephalic vein within its fat stripe. The the vein was mobilized laterally. Subdeltoid space and conjoined tendon were freed of adhesions. The long head of the biceps tendon was identified just lateral to the lesser tuberosity. The uppermost margin of the pectoralis major tendon was released from the proximal humerus. The long head of the biceps tendon was tenodesed in situ using SutureTape in a [id number] fashion securing it superior margin the pectoralis major tendon. The biceps tendon was amputated and followed proximally to identify the rotator interval. A subscapularis peel was performed taking care to release the entire tendon in a full-thickness fashion from superior to inferior and lateral to medial while bringing the arm gradually into external rotation. Care was taken to avoid the axillary nerve by only working on the bone inferiorly and medially. The subscapularis was tagged using SutureTape in a Patric-Deo fashion and traction used confirm appropriate mobilization of the subscapularis tendon after gentle blunt dissection was used to free up the space anterior and posterior to it. The leading edge of the supraspinatus was identified and debrided of partial-thickness tearing. Appropriate coagulation was achieved especially interiorly. The anatomic neck was cut using an oscillating saw with the humeral head bone brought back table in case there was a need for future bone grafting. The proximal humeral protection plate was used to provisionally confirm suture cup and glenosphere size. Attention was then turned to the glenoid and retractors were placed and a circumferential release performed using the long head of the biceps remnant to remove soft tissue about the glenoid rim. Care was taken inferiorly to work on bone only between 5 and 7:00 o'clock and bluntly elevate tissues inferiorly. The VIP guide was placed on the glenoid and used to confirm placement and trajectory of the central guidepin. The guidepin was inserted through the augmented baseplate template and advanced just through the far cortex ensuring adequate central fixation length. Depth gauge was used to confirm length. The glenosphere sizer was used to confirm positioning and glenosphere size. The eccentric backside baseplate reamer was then used with appropriate glenoid preparation. The 25mm central screw drill was used. Guidewire removed. Well?prepared socket visualized. The baseplate was impacted and fully compressed onto the glenoid surface with the correct augmented orientation. The locking guide was then used to drill and place appropriately lengthed inferior, superior, anterior, and posterior screws. The [id number] reamer was used to confirm adequate peripheral reaming. The glenosphere was applied with the wire charger and then impacted to engage the José taper. It was then locked with appropriate countersinking of the setscrew. The glenosphere was inspected and found to have good fit, appropriate positioning, and no soft tissue or bony impingement. Attention was then turned back to the proximal humerus, which was delivered from the wound and maintained in external rotation. Reamers were started appropriately posterior to the bicipital groove taking care to maintain in line approach with the humeral canal. Sequential reaming was done from size 5 up to size 7. Next, the broaches were sequentially used to open the proximal humerus starting with a size 5 and going up to size 9 and sunk to the appropriate depth while maintaining approximately 20 degrees retroversion. There was good metaphyseal fit and rotational control of the proximal humerus with this size. The neutral offset guide was used to ream for the suture cup. The humeral trial cup was connected. Trialing was commenced with +3 mm liner. The shoulder was reduced and taken through range of motion. Trial components were built up to +9 mm spacer and liner to achieve good stability and appropriate tension on the deltoid and conjoined tension. The trial components were removed from the proximal humerus. The wound was copiously irrigated with normal saline. A 2 mm drill was used to drill 2 drill holes in the bicipital groove for later subscapularis repair. The the proximal humeral stem and suture cup were assembled and brought over the proximal humerus. Suture tapes were placed superiorly inferiorly at the medial and lateral aspect of the suture cup. The lateral tapes were brought out the drill holes. A small amount of vancomycin powder was distributed in the proximal humerus. The humeral component and suture cup were impacted into place. The trial spacer and liner were added, and the shoulder was reduced and range of motion, stability, and tension confirmed to be appropriate. The final spacer and liner were then connected, and range of motion, stability, and tension confirmed. Constrained liner was chosen given advanced age and concern about future rotator cuff disease or rotator cuff repair healing. The shoulder was copiously irrigated with Betadine and normal saline. Vancomycin powder was distributed deeply about the shoulder and through subcutaneous tissues. The arm was placed in about 30 degrees of external rotation. The subscapularis was reduced and repaired using the [place] in a speed bridge type configuration. The arm was taken into more external rotation without any displacement of the subscapularis repair. The deltopectoral interval was well approximated. Subcutaneous tissue was irrigated then closed using 2-0 Monocryl in a buried interrupted fashion. Skin was closed using 3-0 Monocryl in a buried subcuticular fashion. Skin glue was applied to the incision. A silver impregnated bandage was placed over the incision. The extremity was placed into a shoulder immobilizer. The patient awoke from anesthesia without complication and was taken to the recovery room in stable condition.
--- NOTE | 2023-02-15 14:38 | W.PM.DSUDISC ---
Date of service: 02/15/23 Time of Service: 14:39 Discharge Plan Disposition Patient Disposition: Home Condition: Stable Discharge Details Attending Provider: Stone Bautista Primary Care Provider: Shayne Portillo Home Meds and New Rx's Prescriptions: New aspirin 81 mg tablet,delayed release (DR/EC) 81 mg PO DAILY 90 Days Qty: 90 0RF naproxen 250 mg tablet 250 - 500 mg PO BID PRNQty: 40 0RF Rx Instructions: take with a meal oxycodone 5 mg tablet 5 - 10 mg PO Q4H MDD 30 mg PRN (Reason: moderate to severe pain) Qty: 18 0RF Continued Spiriva with HandiHaler 18 mcg capsule, w/inhalation device 1 cap inhalation DAILY Rx Instructions: puncture 1 cap using device; one dose = 2 inhalations salmon oil-omega-3 fatty acids 1,000-210 mg capsule 1 cap PO DAILY wjcbqijvczk-pcpjnczmz-zpt C-Mn 1 EACH tablet 2 ea PO DAILY cholecalciferol (vitamin D3) 2,000 UNIT tablet 2,000 unit PO DAILY garlic 1,000 MG capsule 1,000 mg PO DAILY hydrocortisone 2.5 % cream 1 applic topical BID PRN (Reason: skin irritation) Qty: 30 0RF levalbuterol tartrate [Xopenex HFA] 45 mcg/actuation HFA aerosol inhaler 2 puff Inhalation Q4H PRN Qty: 1 11RF Rx Instructions: NEEDED TO PREVENT WHEEZES/SHORTNESS OF BREATH ipratropium-albuterol 0.5 mg-3 mg(2.5 mg base)/3 mL solution for nebulization See Rx Instructions .ROUTE .COMPLEX Qty: 180 3RF Dose Instruction: INHALE THE CONTENTS OF ONE VIAL VIA NEBULIZER EVERY 6 HOURS NEEDED FOR FOR SHORTNESS OF BREATH OR WHEEZING Rx Instructions: INHALE THE CONTENTS OF ONE VIAL VIA NEBULIZER EVERY 6 HOURS NEEDED FOR FOR SHORTNESS OF BREATH OR WHEEZING finasteride 5 mg tablet 5 mg PO DAILY furosemide 20 mg tablet 20 mg PO DAILY losartan 25 mg tablet 25 mg PO HS metoprolol succinate 100 mg tablet extended release 24 hr 100 mg PO HS spironolactone 25 mg tablet 12.5 mg PO DAILY rosuvastatin 40 mg tablet 40 mg PO DAILY Qty: 90 3RF magnesium 500 mg Tablet 500 mg PO DAILY tamsulosin 0.4 mg capsule 0.4 mg PO HS Rx Instructions: for nocturia Spiriva Respimat 2.5 mcg/actuation mist 2 inh inhalation QAM Discontinued Eliquis 5 mg tablet 5 mg PO BID Rx Instructions: TAKE ONE TABLET BY MOUTH TWICE A DAY for 3 months post ablation at least, 02/22/23 note daed 01/25/23 cc Discharge Instructions Additional Instructions: Surgery: Right reverse total shoulder arthroplasty (rotator cuff preserved, subscap repair) with biceps tenodesis Activity: Do not lift anything heavier than a coffee. You should keep your arm at your side in a neutral position at all times except for gentle range of motion exercises, physical therapy, and essential activities. You should use the sling whenever you are out of the house. You may have to adjust the abduction pillow or remove it for comfort. At home it is best to remove the sling and rest the arm on a pillow at your side or support the operative side with your other hand. A physical therapy prescription will be sent electronically to start in about 3 weeks. Reverse TSA Protocol: Postoperative Weeks 0-6 ?Immobilization: Sling may be removed for therapeutic exercises, resting in bed or chair, and bathing ?Motion exercises: Pendulum exercises, elbow range- of-motion exercises, wrist crbch-jk-nnaegp exercises, and behavioral health case manager strengthening ?Restrictions: No active internal rotation or backwards extension Postoperative Weeks 6-12 ?Immobilization: Sling discontinued ?Motion exercises: Shoulder passive range of motion, advancing to active-assisted range of motion, and finally active range of motion with a goal of forward flexion to 90? and external rotation of 20? ?Strengthening exercises: Light, resisted forward flexion, external rotation, and abduction limited to isometric exercises and therapy bands with concentric motions only. Continue behavioral health case manager strengthening ?Restrictions: No resisted internal rotation or backwards extension. No scapular retraction exercises with therapy bands Postoperative Months 3-12 ?Motion exercises: Increase zfcdp-vk-hxefvj exercises to achieve full motion, with passive stretching at end ranges ?Strengthening: Begin resisted, internal rotation and backwards extension initially with isometric exercises advancing to light therapy bands and then weights. Advance other shoulder strengthening exercises to include the rotator cuff, deltoid, and scapular stabilizers. Advance to functional strengthening, including plyometric exercises and core strengthening. Prescriptions: Aspirin 81 mg take 1 daily to prevent a blood clot for 2 weeks Naproxen 250 mg take 1-2 every 12 hours with a meal as needed for moderate pain [Oxycodone 5 mg take 1-2 every 4-6 hours as needed for severe pain] [Tramadol 50 mg take 1 every 8 hours as needed for severe pain] You may use qikm-qcv-xmynoqi Tylenol (acetaminophen) as needed for mild pain. These pain medications may be taken all at once or in different combinations as needed. [Ondansetron (Zofran) 4 mg take 1 orally dissolving tablet every 6 hours as needed for nausea or vomiting] Also, recommend Colace (docusate) as a stool softener as surgery and pain medicine cause constipation. You may try anom-scm-lkdrqte diphenhydramine (Benadryl) 25-50 mg nightly as a sleep aid Dressings: Leave dressing in place until follow-up. Keep clean and dry at all times. No showers please. Follow-up: 10-[address] Bautista You may take off the leg compression stockings this evening at home. You may also leave them on a few days longer if you have a history of leg swelling or edema. Please call the office during business hours with any questions or concerns. Let us know right away if you develop any redness, drainage, fevers, chest pain, or trouble breathing. Do not drink alcohol or drive for at least 24 hours after anesthesia. Stand Alone Forms: Anesthesia Discharge Inst., Nadir.Nerve Block Instructions, Dimitrios Kimball (DSU) Referrals: Stone Bautista MD [ 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
== END 2023-02-15 15:48 | disposition home or self-care (01) ==
PROVIDERS: PCP Family Medicine; Visit Provider Student in an Organized Health Care Education/Training Program
PROC: (CPT 23472; principal; 2023-02-15 08:00)
DX: M19.011 Primary osteoarthritis, right shoulder (principal); M75.21 Bicipital tendinitis, right shoulder; I48.92 Unspecified atrial flutter; I50.20 Unspecified systolic (congestive) heart failure
CPT/HCPCS: 23472; C1713; 76942; 73030; J0131; J0690; J1100; J2250; J2370; J2405; J2704

== ENCOUNTER 2023-02-28 11:10 | Outpatient (CLI) | payer MEDICARE, SELFPAY ==
--- NOTE | 2023-02-28 09:45 | DI.RAD_ITS ---
Exam(s) XR SHOULDER RT COMPLETE 2+V EXAM: XR SHOULDER RT COMPLETE 2+V CLINICAL HISTORY: F/U RIGHT RTSA. TECHNIQUE: 2D digital imaging was performed. Two images were obtained. AP and Y views were obtained . COMPARISON: CR XR SHOULDER RT COMPLETE 2+V from 02/15/2023 FINDINGS: BONES: There are stable post operative changes present. No fracture or dislocation. JOINTS: The orthopedic hardware is in good position. No evidence of hardware loosening. SOFT TISSUE: Normal. IMPRESSION: Stable postoperative changes. DATA REPOSITORY: RADIATION DOSE DELIVERED:
== END 2023-02-28 11:11 | disposition home or self-care (01) ==
LOC: DIORS 11:10
PROVIDERS: PCP Family Medicine; Referring Provider Family Medicine; Visit Provider Student in an Organized Health Care Education/Training Program
DX: Z47.1 Aftercare following joint replacement surgery; Z96.611 Presence of right artificial shoulder joint
CPT/HCPCS: 73030

== ENCOUNTER 2023-04-11 13:21 | Outpatient (CLI) | payer MEDICARE, SELFPAY ==
--- NOTE | 2023-04-11 13:15 | DI.RAD_ITS ---
Exam(s) XR SHOULDER RT COMPLETE 2+V EXAM: XR SHOULDER RT COMPLETE 2+V INDICATION: F/U RIGHT RTSA. COMPARISON: CR XR SHOULDER RT COMPLETE 2+V from 02/28/2023 TECHNIQUE: 2D digital imaging was performed. Two views. FINDINGS: There has been no change in the alignment of the reverse shoulder prosthesis. No suspicious bony flor encies are seen. Scarring is again noted at the right lung base. DATA REPOSITORY: RADIATION DOSE DELIVERED:
== END 2023-04-11 13:22 | disposition home or self-care (01) ==
LOC: DIORS 13:21
PROVIDERS: PCP Family Medicine; Referring Provider Family Medicine; Visit Provider Student in an Organized Health Care Education/Training Program
DX: Z98.890 Other specified postprocedural states (principal); Z48.89 Encounter for other specified surgical aftercare; Z96.611 Presence of right artificial shoulder joint
CPT/HCPCS: 73030

== ENCOUNTER → 2023-05-30 14:26 | Outpatient (BNVA) | payer MEDICARE, SELFPAY | PROVIDERS: PCP Family Medicine; Referring Provider Family Medicine; Visit Provider Student in an Organized Health Care Education/Training Program | DX: Z47.1 Aftercare following joint replacement surgery (principal); Z96.611 Presence of right artificial shoulder joint; M19.012 Primary osteoarthritis, left shoulder | CPT/HCPCS: 99213 ==

== ENCOUNTER → 2023-07-26 10:25 | Outpatient (BNVA) | payer MEDICARE, SELFPAY | PROVIDERS: PCP Family Medicine; Visit Provider Internal Medicine Cardiovascular Disease | DX: J44.9 Chronic obstructive pulmonary disease, unspecified (principal); I42.9 Cardiomyopathy, unspecified; Z98.890 Other specified postprocedural states; I25.10 Atherosclerotic heart disease of native coronary artery without angina pectoris; I48.3 Typical atrial flutter; I35.0 Nonrheumatic aortic (valve) stenosis | CPT/HCPCS: 99214 ==

== ENCOUNTER → 2023-08-03 02:08 | Outpatient (CLI) | payer MEDICARE, SELFPAY ==
--- NOTE | 2023-08-03 10:38 | DI.RAD_ITS ---
Exam(s) XR CHEST 2V PA LATERAL EXAM: XR CHEST 2V PA LATERAL CLINICAL HISTORY: Shortness of breath J44.9 COPD I35.0 AORTIC VALVE STENOSIS TECHNIQUE: 2D digital imaging was performed. COMPARISON: CT CT CHEST PE ABD PELVIS W from 11/17/2022 FINDINGS: HEART: Normal size. Aorta: Tortuous. PULMONARY VASCULATURE: Normal. LUNGS: Hyperinflation. Mild basilar scarring. No infiltrate. PLEURAL SPACE: No pleural effusion or pneumothorax. BONE:Right shoulder prosthesis. Degenerative changes left shoulder and thoracic spine. IMPRESSION: No acute abnormality. DATA REPOSITORY: RADIATION DOSE DELIVERED:
== END ==
PROVIDERS: PCP Family Medicine; Visit Provider Internal Medicine Cardiovascular Disease
DX: J44.9 Chronic obstructive pulmonary disease, unspecified (principal); I35.0 Nonrheumatic aortic (valve) stenosis
CPT/HCPCS: 71046

== ENCOUNTER → 2023-08-30 12:50 | Outpatient (BNVA) | payer MEDICARE, SELFPAY | PROVIDERS: PCP Family Medicine; Referring Provider Family Medicine; Visit Provider Physician Assistant Surgical | DX: J44.9 Chronic obstructive pulmonary disease, unspecified (principal); Z79.51 Long term (current) use of inhaled steroids; I42.9 Cardiomyopathy, unspecified; Z87.891 Personal history of nicotine dependence | CPT/HCPCS: 94664; 99215 ==

== ENCOUNTER 2023-09-07 03:11 | Outpatient (CLI) | payer MEDICARE, SELFPAY ==
[2023-09-07] MEDS: Levalbuterol HFA 15 GM INH 4 PUFF IH (12:12)
[2023-09-07] MEDS: Inhaler, Assist Device 1 EACH MC (12:13)
--- NOTE | 2023-09-14 08:00 | W.PFT ---
Date of service: 09/07/23 Time of Service: 10:59 Pulmonary Function Test Result Indications: COPD Interpretation Spirometry: There is moderate airflow limitation. There is a significant bronchodilator response. Lung Volumes: There is hyperinflation and air trapping Diffusion Capacity: Normal diffusion Airway Pressure: Increased airways resistance Impression Moderate airflow obstruction with a significant bronchodilator response and a normal diffusion. This may represent COPD (chronic bronchitis) or Asthma-COPD Overlap Syndrome. Clinical Correlation therefore is recommended.
== END 2023-09-07 03:12 | disposition home or self-care (01) ==
LOC: RT 03:11
PROVIDERS: PCP Family Medicine; Visit Provider Physician Assistant Surgical
DX: J44.9 Chronic obstructive pulmonary disease, unspecified (principal)
CPT/HCPCS: 94060; 94726; 94729

== ENCOUNTER → 2023-09-21 01:06 | Outpatient (CLI) | payer MEDICARE, SELFPAY ==
--- NOTE | 2023-09-21 07:45 | DI.US_ITS ---
APPROVED REPORT EXAM: Comprehensive 2D, Doppler, and color-flow Echocardiogram Patient Location: Out-Patient [facility] Washer: Nikita Fnich RDCS (AE) Indications: check LV function, aortic stenosis, chf Other Information Study Quality: Good Conclusion 1. Normal chamber sizes 2. Mild to moderate concentric LVH with normal systolic function, EF 60-65%. No wall motion abnormali ty 3. Grade 1 diastolic dysfunction 4. Aortic sclerosis with mild stenosis.Trace AI. 5. Mild mitral posterior annular calcification. Mild MR. Mild TR without pulmonary hypertensionm. 6. No pericardial effusion. Wall motion Left Ventricle The left ventricle is normal size. The left ventricular systolic function is normal. The left ventric ular ejection fraction is within the normal range. There is normal left ventricular wall thickness. T here is normal LV segmental wall motion. There is no ventricular septal defect visualized. LVEF is 57 %. Right Ventricle The right ventricle is normal size. The right ventricular systolic function is normal. The RVSP is 31 .6 mmHg. Atria The left atrium size is normal. The right atrium size is normal. The interatrial septum is intact wit h no evidence for an atrial septal defect. Aortic Valve The Aortic valve is sclerotic. Number of aortic valve leaflets could not be assessed. The aortic valv e is trileaflet. Mild aortic stenosis. Peak aortic valve gradient is 19.7 mmHg. Highest mean aortic v alve gradient is 10.2 mmHg. Calculated RAVEN by the continuity equation is 1.7 cm2. There is mild valvu lar aortic stenosis. Trace aortic regurgitation. Mitral Valve Mild mitral annular calcification. No evidence of mitral valve stenosis. Mild mitral regurgitation. Tricuspid Valve The tricuspid valve is normal in structure. There is no tricuspid valve stenosis. Moderate tricuspid regurgitation. Pulmonic Valve The pulmonary valve is normal in structure. There is no pulmonic valvular stenosis. Mild pulmonic reg urgitation. Great Vessels The aortic root is normal in size. The ascending aorta is mildly dilated. Aortic arch is not well vis ualized. IVC is normal in size and collapses >50% with inspiration. Pericardium There is no pericardial effusion. 2D Dimensions IVSD d PLAX 0.81 cm M: 0.6-1.2 Ao Root d 3.66 cm M: 3.1 - 3.7 LVPW d PLAX 0.84 cm M: 0.6 - 1.2 Ao Asc Diam d 3.67 cm M: 2.6 - 3.4 LVID d PLAX 5.01 cm M: 4.2 - 5.8 LVDs 3.52 cm M: 2.5 - 4.0 LV EF Teichholz 56.6 % FS 29.74 % LV EDV (Teich) 118.9 mL LV ESV (Teich) 51.6 mL Stroke Vol Index (Teich) 37.79 M-Mode TAPSE 1.81 cm (M/F) >1.7 Auto EF LV EDV A4C 89.3 mL LV EDV A2C 99.7 mL LV EDV BP 95.6 mL LV ESV A4C 38.1 mL LV ESV A2C 43.7 mL LV ESV BP 41.2 mL LVEF(%) A4C 57.3 % LVEF(%) A2C 56.1 % LVEF(%) BP 56.9 % LV SV A4C 51.2 ml LV SV A2C 55.9 ml LV SV BP 54.4 ml LV CO A4C 2.7 L/min LV CO A2C 2.9 L/min LV CO BP 2.8 L/min HR A4C 52.56 BPM HR A2C 50.99 BPM LV EDV Index (BP) LA Volume LA Length A4C 4.3 cm LA Length A2C 4.6 cm LA Area A4C s 10.75 cm2 LA Area A2C s 10.78 cm2 LA Vol A4C A-L 22.58 mL LA Vol A2C A-L 21.31 mL LA Vol Biplane A-L 22.6 mL LA Vol/BSA A4C A-L LA Vol/BSA A2C A-L LA Vol/BSA BP A-L 12.7 mL/m2 LA Vol A4C MOD 21.5 mL LA Vol A2C MOD 20.8 mL LA Vol BP MOD 21.1 mL RA Volume RA Area A4C 10.4 cm2 RA ESV A4C (A-L) 21.0mL RA Vol/BSA A4C A-L RA Length A4C 4.4 cm RA ESV A4C (MOD) 20.4mL LV Diastology MV E' medial 0.062 (>0.07 m/s) MV E Vmax 0.62 (0.4-1.3 m/s) MV E/E' MED 9.88 (<14) MV A Vmax 0.85 (0.4-1.3 m/s) MV E' lateral 0.071 (>0.1 m/s) E/A Ratio 0.7 MV E/E' LAT 8.69 (<14) MV E' Average 0.067 m/s MV E/E'(average) 9.25 Aortic Valve AoV Vmax 2.12 m/s LVOT Vmax 1.25 m/s AoV Peak Grad 19.7 mmHg LVOT Peak Grad 6.3 mmHg AoV Area (Vmax) 1.89 cm2 LVOT VTI 0.292 m AoV VTI 0.535 m LVOT Mean Grad 3.8 mmHg AoV Mean Shreyas. 1.53 m/s LVOT SV 93.26 mL AoV Mean Grad 10.2 mmHg LVOT Diam s 2.00 cm AoV Area (VTI) 1.74 cm2 Velocity Ratio 0.59 Mitral Valve MV DT 365 (160-240 msec) Pulmonary Valve PV Vmax 1.01 (0.5-1.5 m/s) RVOT Vmax 0.45 m/s PV Peak Grad 4.1 mmHg RVOT Peak Gr. 0.8 mmHg PV Mean Shreyas 0.55 m/s RVOT VTI 0.108 m PV Mean Grad 1.5 mmHg RVOT Mean Gr. 0.4 mmHg Tricuspid Valve RA Pressure 3.00 mmHg TR Vmax 2.68 m/s TR Peak Grad 28.6 mmHg RVSP (TR) 31.6 mmHg
== END ==
PROVIDERS: PCP Family Medicine; Visit Provider Internal Medicine Cardiovascular Disease
DX: I35.0 Nonrheumatic aortic (valve) stenosis (principal); I50.9 Heart failure, unspecified; J44.9 Chronic obstructive pulmonary disease, unspecified
CPT/HCPCS: 93306

== ENCOUNTER → 2023-10-25 10:35 | Outpatient (BNVA) | payer MEDICARE, SELFPAY | PROVIDERS: PCP Family Medicine; Visit Provider Internal Medicine Interventional Cardiology | DX: I42.9 Cardiomyopathy, unspecified (principal); J44.9 Chronic obstructive pulmonary disease, unspecified; I48.3 Typical atrial flutter; I35.0 Nonrheumatic aortic (valve) stenosis | CPT/HCPCS: 99213 ==

== ENCOUNTER → 2023-11-05 14:00 | Outpatient (BNVA) | payer MEDICARE, SELFPAY | PROVIDERS: PCP Family Medicine; Referring Provider Family Medicine; Visit Provider Student in an Organized Health Care Education/Training Program | DX: J44.9 Chronic obstructive pulmonary disease, unspecified (principal); Z87.891 Personal history of nicotine dependence | CPT/HCPCS: 99214 ==

== ENCOUNTER 2023-12-11 04:38 | Outpatient (CLI) | payer MEDICARE, OTHER, SELFPAY ==
[2023-12-11 09:33] LABS: ALT 43 U/L (16-63); AST 25 U/L (15-37); Albumin 3.8 g/dL (3.4-5.0); Alkaline Phosphatase 65 U/L (46-116); BUN 26 mg/dL (7-18); Bilirubin, Total 0.4 mg/dL (0.2-1.0); CREATININE 1.1 mg/dL (0.70-1.30); Calcium 9.5 mg/dL (8.5-10.1); Chloride 103 mmol/L (98-107); Estimated GFR 68.71 (mL/min/1.73m2); Glucose 72 mg/dL (74-106); Magnesium 2.3 mg/dL (1.8-2.4); Potassium 4.5 mmol/L (3.5-5.1); Sodium 142 mmol/L (136-145); Total Protein 7.8 g/dL (6.4-8.2)
== END 2023-12-11 04:39 | disposition home or self-care (01) ==
LOC: LBO 04:38
PROVIDERS: Absent Provider Family Medicine; PCP Family Medicine; Referring Provider Family Medicine; Visit Provider Family Medicine
DX: I50.21 Acute systolic (congestive) heart failure (principal)
CPT/HCPCS: 36415; 80053; 83735

== ENCOUNTER 2024-02-06 15:42 | Outpatient (CLI) | payer MEDICARE, OTHER, SELFPAY ==
--- NOTE | 2024-02-06 14:00 | DI.RAD_ITS ---
Exam(s) XR SHOULDER RT COMPLETE 2+V EXAM: XR SHOULDER RT COMPLETE 2+V CLINICAL HISTORY: F/U RIGHT RTSA. TECHNIQUE: 2D digital imaging was performed. Three images were obtained. Grashey, Y and axillary vi ews were obtained. COMPARISON: CR XR SHOULDER RT COMPLETE 2+V from 04/11/2023 FINDINGS: BONES: There are stable post operative changes of a right total reverse shoulder replacement present. No fracture or dislocation. JOINTS: The orthopedic hardware is in good position. No evidence of hardware loosening. SOFT TISSUE: Normal. IMPRESSION: Stable total reverse shoulder replacement. DATA REPOSITORY: RADIATION DOSE DELIVERED:
== END 2024-02-06 15:43 | disposition home or self-care (01) ==
LOC: DIORS 15:42
PROVIDERS: PCP Family Medicine; Visit Provider Student in an Organized Health Care Education/Training Program
DX: Z47.1 Aftercare following joint replacement surgery (principal); Z96.611 Presence of right artificial shoulder joint; M19.012 Primary osteoarthritis, left shoulder
CPT/HCPCS: 99213; 73030

== ENCOUNTER → 2024-04-24 11:01 | Outpatient (BNVA) | payer MEDICARE, OTHER, SELFPAY | PROVIDERS: PCP Family Medicine; Visit Provider Internal Medicine Cardiovascular Disease | DX: I48.92 Unspecified atrial flutter (principal); I35.0 Nonrheumatic aortic (valve) stenosis | CPT/HCPCS: 99213 ==

== ENCOUNTER → 2024-05-05 14:37 | Outpatient (BNVA) | payer MEDICARE, OTHER, SELFPAY | PROVIDERS: PCP Family Medicine; Referring Provider Family Medicine; Visit Provider Physician Assistant Surgical | DX: J44.9 Chronic obstructive pulmonary disease, unspecified (principal); Z87.891 Personal history of nicotine dependence | CPT/HCPCS: 99214 ==

== ENCOUNTER 2024-08-26 10:07 | Outpatient (REF) | payer MEDICARE, OTHER, SELFPAY ==
--- NOTE | 2024-08-26 07:40 | SKI_PTH ---
PATIENT: Rodney Gunderson LOC: [facility] U#:[id number] AGE/SX: 79/M ROOM: RE08/26/[address]: Cipriano Neumann MD : 1945 BED: DIS: 08/26/2024 SPEC #: [id number] RECD: 08/26/24 17:35 STATUS: ZAHIRA REQ #: [id number] ANTONIO: 08/26/24 07:[address]: Cipriano Neumann DEPT: Surgical Specimen RECD BY: Lilian Grimes ENTERED: 08/26/24 17:36 SP TYPE: SKI OTHR DR: Shayne Portillo DO Tissues: 1 - SKIN BIOPSY(SHAVE/PUNCH) Procedures: SKIN LEVEL 4 Comments: [id number]
== END 2024-08-26 10:08 | disposition home or self-care (01) ==
LOC: LBN 10:07
PROVIDERS: PCP Family Medicine; Visit Provider Otolaryngology
DX: L98.9 Disorder of the skin and subcutaneous tissue, unspecified (principal); L57.0 Actinic keratosis
CPT/HCPCS: 88305

== ENCOUNTER 2025-04-23 01:55 | Outpatient (CLI) | payer MEDICARE, OTHER, SELFPAY ==
--- NOTE | 2025-04-23 08:40 | DI.US_ITS ---
APPROVED REPORT EXAM: Comprehensive 2D, Doppler, and color-flow Echocardiogram Patient Location: Out-Patient [facility] Assistant: Nikita Finch RDCS (AE) Indications: Recheck aortic stenosis Other Information Study Quality: Adequate Conclusion Normal left ventricular wall thickness and chamber size. Ejection fraction is 60 to 65%. Wall motion is normal Normal right ventricular size and function Both atria are normal in size Aortic valve is calcified and trileaflet. There is mild aortic stenosis. Peak gradient is 25, mean 15 mmHg. Calculated aortic valve area is 1.6 cm?? Mild mitral annular calcification Mild mitral and tricuspid regurgitation Estimated right ventricular systolic pressure is 35 mmHg Ascending aorta measures 3.72 cm Wall motion Left Ventricle The left ventricle is normal size. The left ventricular systolic function is normal. The left ventricular ejection fraction is within the normal range. There is normal left ventricular wall thickness. There is normal LV segmental wall motion. There is no ventricular septal defect visualized. LVEF is 60-65%. Right Ventricle The right ventricle is normal size. The right ventricular systolic function is normal. Atria The left atrium size is normal. The right atrium size is normal. The interatrial septum is intact with no evidence for an atrial septal defect. Aortic Valve Aortic valve is calcified. Aortic valve is trileaflet. Mild aortic stenosis. No aortic regurgitation is present. Mitral Valve Mild mitral annular calcification. No evidence of mitral valve stenosis. Mild mitral regurgitation. Tricuspid Valve The tricuspid valve is normal in structure. There is no tricuspid valve stenosis. Mild tricuspid regurgitation. The RVSP is 34.5 mmHg. Pulmonic Valve The pulmonary valve is normal in structure. There is no pulmonic valvular stenosis. Mild pulmonic regurgitation. Great Vessels The aortic root is normal in size. The ascending aorta is mildly dilated. Aortic arch is not well visualized. IVC is normal in size and collapses >50% with inspiration. Pericardium There is no pericardial effusion. 2D Dimensions IVSD d PLAX 0.76 cm M: 0.6-1.2 Ao Root d 3.33 cm M: 3.1 - 3.7 LVPW d PLAX 0.78 cm M: 0.6 - 1.2 Ao Asc Diam d 3.72 cm M: 2.6 - 3.4 LVID d PLAX 5.05 cm M: 4.2 - 5.8 LVDs 3.24 cm M: 2.5 - 4.0 LV EF Teichholz 65.2 % FS 35.90 % LV EDV (Teich) 121.1 mL LV ESV (Teich) 42.2 mL Stroke Vol Index (Teich) 44.35 M-Mode TAPSE 1.88 cm (M/F) >1.7 Auto EF LV EDV A4C 107.1 mL LV EDV A2C 121.5 mL LV EDV BP 117.6 mL LV ESV A4C 42.4 mL LV ESV A2C 42.4 mL LV ESV BP 43.7 mL LVEF(%) A4C 60.4 % LVEF(%) A2C 65.1 % LVEF(%) BP 62.8 % LV SV A4C 64.8 ml LV SV A2C 79.0 ml LV SV BP 73.9 ml LV CO A4C 4.2 L/min LV CO A2C 5.7 L/min LV CO BP 4.9 L/min HR A4C 65.34 BPM HR A2C 71.71 BPM LV EDV Index (BP) LA Volume LA Length A4C 4.8 cm LA Length A2C 4.7 cm LA Area A4C s 13.11 cm2 LA Area A2C s 14.79 cm2 LA Vol A4C A-L 30.48 mL LA Vol A2C A-L 39.77 mL LA Vol Biplane A-L 35.3 mL LA Vol/BSA A4C A-L LA Vol/BSA A2C A-L LA Vol/BSA BP A-L 19.8 mL/m2 LA Vol A4C MOD 28.7 mL LA Vol A2C MOD 38.3 mL LA Vol BP MOD 33.2 mL RA Volume RA Area A4C 10.1 cm2 RA ESV A4C (A-L) 17.5mL RA Vol/BSA A4C A-L RA Length A4C 4.9 cm RA ESV A4C (MOD) 18.0mL LV Diastology MV E' medial 0.081 (>0.07 m/s) MV E Vmax 0.68 (0.4-1.3 m/s) MV E/E' MED 8.34 (<14) MV A Vmax 0.80 (0.4-1.3 m/s) E/A Ratio 0.9 Aortic Valve AoV Vmax 2.51 m/s LVOT Vmax 1.17 m/s AoV Peak Grad 25.1 mmHg LVOT Peak Grad 5.5 mmHg AoV Area (Vmax) 1.62 cm2 LVOT VTI 0.243 m AoV VTI 0.498 m LVOT Mean Grad 2.8 mmHg AoV Mean Shreyas. 1.84 m/s LVOT SV 84.68 mL AoV Mean Grad 15.0 mmHg LVOT Diam s 2.10 cm AoV Area (VTI) 1.70 cm2 AV Regurg Peak Gr. 25.12 mmHg Velocity Ratio 0.47 Mitral Valve MV DT 422 (160-240 msec) Pulmonary Valve PV Vmax 0.94 (0.5-1.5 m/s) RVOT Vmax 0.63 m/s PV Peak Grad 3.5 mmHg RVOT Peak Gr. 1.6 mmHg PV Mean Shreyas 0.60 m/s RVOT VTI 0.111 m PV Mean Grad 1.7 mmHg RVOT Mean Gr. 0.8 mmHg Tricuspid Valve RA Pressure 3.00 mmHg TR Vmax 2.81 m/s TR Peak Grad 31.5 mmHg RVSP (TR) 34.5 mmHg
== END 2025-04-23 02:15 ==
PROVIDERS: PCP Family Medicine; Visit Provider Internal Medicine Cardiovascular Disease
DX: I08.0 Rheumatic disorders of both mitral and aortic valves (principal)
CPT/HCPCS: 93306

== ENCOUNTER 2025-04-27 07:48 | Outpatient (CLI) | payer MEDICARE, OTHER, SELFPAY ==
--- NOTE | 2025-04-27 07:45 | RT.EKG_ITS ---
APPROVED REPORT Exam: Resting ECG Reason for Exam: ASCVD Patient Location: O HR:63 bpm ECG Measurements Heart Rate 63 AXIS NE 62 P 57 QRSd 162 QRS -106 QT 426 T 32 QTc 437 Conclusion Sinus rhythm...normal P axis, V-rate 50- 99 Short NE interval...NE <110mSRBBB and LAFB...QRSd >120mS, axis(-40,240)
== END 2025-04-27 07:49 | disposition home or self-care (01) ==
LOC: DI.CARD 07:48
PROVIDERS: PCP Family Medicine; Visit Provider Registered Nurse
DX: R00.0 Tachycardia, unspecified (principal); I48.92 Unspecified atrial flutter; I25.10 Atherosclerotic heart disease of native coronary artery without angina pectoris
CPT/HCPCS: 93010

== ENCOUNTER → 2025-04-27 10:52 | Outpatient (BNVA) | payer MEDICARE, OTHER, SELFPAY | PROVIDERS: PCP Family Medicine; Visit Provider Registered Nurse | DX: I48.92 Unspecified atrial flutter (principal); I35.0 Nonrheumatic aortic (valve) stenosis; I50.23 Acute on chronic systolic (congestive) heart failure | CPT/HCPCS: 99214; 93005 ==

== ENCOUNTER → 2025-05-07 14:39 | Outpatient (BNVA) | payer MEDICARE, OTHER, SELFPAY | PROVIDERS: PCP Family Medicine; Referring Provider Family Medicine; Visit Provider Physician Assistant Surgical | DX: J44.9 Chronic obstructive pulmonary disease, unspecified (principal); Z87.891 Personal history of nicotine dependence | CPT/HCPCS: 99214 ==

== ENCOUNTER 2025-07-16 03:52 | Outpatient (CLI) | payer MEDICARE, OTHER, SELFPAY ==
--- NOTE | 2025-07-16 11:00 | ST.MBS_ITS ---
Date of Service Date of service: 07/16/25 Time of Service: 11:00 Modified Barium Swallow Study Findings: Video fluoroscopic Swallowing Evaluation (VFSE) / Modified Barium Swallow Study (MBSS) Speech Language Pathology Report Patient referred for VFSE/MBSS from Dr.Sarah Iverson given concern for aspiration, choking on liquids. HPI & Patient report of function: Patient is a 80 year old male with PMH significant for COPD, CHF, lifelong stutter, and dysphonia/hoarseness which began after an ablation procedure in November 2022 that required intubation. He participated in voice therapy with this clinician from 06/01/25-06/25/25 and has had significant improvement in vocal quality/resonance/stability. He presents today for further evaluation of coughing/choking episodes with thin liquids. He notes these have improved since he was first evaluated by VITICULTURE TEACHER and began being more mindful of sip size and rate. Previous Imaging: Seen by ENT/Clare Julio on 05/21/25: normal flexible laryngoscopy. IMPRESSIONS: Modified barium swallow study revealed oral pharyngeal swallow function to be well within normal limits for age. There is no evidence of oral or pharyngeal dysphagia. Findings and film reviewed with patient at end of study. No further VITICULTURE TEACHER follow ups indicated at this time. As noted, symptoms have largely improved with strategy use (small single sips). RECOMMENDATIONS: Diet Texture Recommendation:? IDDSI LEVEL SOLIDS 7-Regular Solids LIQUIDS 0-Thin Liquids MEDICATIONS As tolerated Standard Precautions/Management Strategies:? Small single sips Chew food well before swallowing Upright positioning for all PO and at least 30-45 min after PLAN: Evaluation only. No further VITICULTURE TEACHER needs indicated OBJECTIVE Videofluoroscopic Swallow Evaluation (VFSE/MBSS) was conducted in the lateral projection by Speech-Language Pathologist, in collaboration with Radiologist, to evaluate oropharyngeal swallow function. Anatomic view under fluoroscopy: WFL PO Barium Contrast Trials Oral barium water-soluble contrast was administered as follows: IDDSI Level 0 Varibar thin liquid (40% w/v) IDDSI Level 2 Varibar nectar thick/mildly thick liquid (40% w/v) IDDSI Level 4 Varibar pudding/pureed/extremely thick (40% w/v) IDDSI Level 7 Regular Solid: 1/2 fig toure coated in 3 mL Varibar pudding MBSImP Component Scores: COMPONENT Scale SCORE 1 Lip closure (0-4) 0 Resulted in no labial escape 2 Hold Position (0-3) 0 Maintained a cohesive bolus between tongue to palatal seal 3 Bolus Preparation (0-4) 0 Resulted in timely and efficient chewing and mashi ng 4 Bolus Transport (0-4) 0 Was with brisk tongue motion 5 Oral Residue (0-4) 0 Was not observed. There was complete oral clearance 6 Swallow Initiation (0-4) 0 Occurred as bolus head at posterior angle of the mandibular ramus 7 Soft Palate Elevation (0-4) 0 Resulted in no bolus between soft palate and t he pharyngeal wall 8 Laryngeal Elevation (0-3) 0 Demonstrated complete superior movement of thyro id cartilage with complete approximation of arytenoids to epiglottic petiole 9 Anterior Hyoid Motion (0-2) 0 Demonstrated complete anterior movement 10 Epiglottic Movement (0-2) 0 Resulted in complete inversion 11 Laryngeal Closure (0-2) 0 Was complete with no air or contrast in laryngeal vestibule 12 Pharyngeal Stripping Wave (0-2) 0 Was present and complete 13 Pharyngeal Contraction (0-3) 0 Was complete 14 PES Opening (0-3) 0 Was completely distended and complete duration with no obstruction of flow 15 Tongue Base Retraction (0-4) 0 Allowed no contrast between the tongue base and posterior pharyngeal wall 16 Pharyngeal Residue (0-4) 0 Was not present. There was complete pharyngeal clearance 17 Esophageal Clearance (0-4) 0 Was complete (only viewed upper esophagus region) Results: COMPONENT Scale SCORE 1 Oral Score (0-18) 0 2 Pharyngeal Score (0-29) 0 3 Esophageal Score (0-4) 0 Penetration-Aspiration Scale: COMPONENT Scale SCORE 1 Thin liquid (1-8) 1 Contrast did not enter the airway 2 Keystone thick (1-8) 1 Contrast did not enter the airway 3 Honey thick (1-8) NA 4 Pudding thick (1-8) 1 Contrast did not enter the airway 5 Cookie (1-8) 1 Contrast did not enter the airway Thank you for allowing us to take part in this patient's care. Please feel free to contact the [facility] Speech Language Pathology Department with any questions/concerns.
--- NOTE | 2025-07-16 11:30 | DI.RAD_ITS ---
Exam(s) RF MODIFIED SPEECH BA SWALLOW TECHNIQUE: Modified barium swallow was performed in conjunction with speech pathology. CONTRAST MATERIAL: Oral barium contrast was administered. COMPARISON: No exams were available for comparison FINDINGS: Note that this is not a dedicated esophagram, distal esophagus not evaluated. There is no evidence of aspiration or penetration of thick or thin liquids, barium pudding or barium coated cookies. Speech pathology report to follow. IMPRESSION: No evidence of aspiration or penetration. RADIATION DOSE DELIVERED: summer Whitney=4.95 mGy
[2025-07-16] MEDS: Barium Sulfate Oral Paste 40% W/V 230 ML TUBE PO (11:32)
[2025-07-16] MEDS: Barium Sulfate 81% w/w for Oral Suspension 148 GM BTL PO (11:33)
[2025-07-16] MEDS: Barium Sulfate 40% W/V 240 ML BTL PO (11:34)
== END 2025-07-16 04:12 ==
PROVIDERS: PCP Family Medicine; Visit Provider Physician Assistant Surgical
DX: R13.10 Dysphagia, unspecified (principal)
CPT/HCPCS: 92526; 74221